=== PATIENT | male | born 1940 | race Caucasian/White ===

== ENCOUNTER 2017-10-31 13:36 | Outpatient (RCR) | payer MEDICARE, SELFPAY ==
[2017-10-31 13:51] LABS: Prothrombin Time Fingerstick 24.3 SEC (11.9-14.4)
== END 2017-10-31 14:00 | disposition home or self-care (01) ==
LOC: LAB 13:36
PROVIDERS: Family Provider Family Medicine; PCP Family Medicine; Visit Provider Internal Medicine Cardiovascular Disease
DX: I48.1 Persistent atrial fibrillation (principal); Z79.899 Other long term (current) drug therapy
CPT/HCPCS: 36416; 85610

== ENCOUNTER 2017-12-04 08:30 | Outpatient (RCR) | payer MEDICARE, SELFPAY ==
[2017-10-10 11:26] VITALS: BMI 27.8
[2017-10-10 11:37] VITALS: BP 132/78
[2017-12-04 08:46] LABS: Prothrombin Time Fingerstick 19.7 SEC (11.9-14.4)
== END 2017-12-04 15:00 | disposition home or self-care (01) ==
LOC: LAB 08:30
PROVIDERS: Family Provider Family Medicine; PCP Family Medicine; Visit Provider Internal Medicine Cardiovascular Disease
DX: I48.1 Persistent atrial fibrillation (principal); Z79.899 Other long term (current) drug therapy
CPT/HCPCS: 36416; 85610

== ENCOUNTER 2017-12-18 10:42 | Outpatient (RCR) | payer MEDICARE, SELFPAY ==
[2017-12-18 10:56] LABS: Prothrombin Time Fingerstick 30.3 SEC (11.9-14.4)
== END 2017-12-18 11:00 | disposition home or self-care (01) ==
LOC: LAB 10:42
PROVIDERS: Family Provider Family Medicine; PCP Family Medicine; Visit Provider Internal Medicine Cardiovascular Disease
DX: I48.1 Persistent atrial fibrillation (principal); Z79.899 Other long term (current) drug therapy
CPT/HCPCS: 36416; 85610

== ENCOUNTER 2018-01-22 13:23 | Outpatient (RCR) | payer MEDICARE, SELFPAY ==
[2018-01-22 13:36] LABS: Prothrombin Time Fingerstick 30.2 SEC (11.9-14.4)
== END 2018-01-22 14:00 | disposition home or self-care (01) ==
LOC: LAB 13:23
PROVIDERS: Family Provider Family Medicine; PCP Family Medicine; Visit Provider Internal Medicine Cardiovascular Disease
DX: I48.1 Persistent atrial fibrillation (principal); Z79.899 Other long term (current) drug therapy
CPT/HCPCS: 36416; 85610

== ENCOUNTER 2018-02-17 10:44 | Outpatient (RCR) | payer MEDICARE, SELFPAY ==
[2018-02-17 10:56] LABS: Prothrombin Time Fingerstick 30.1 SEC (11.9-14.4)
== END 2018-02-17 11:00 | disposition home or self-care (01) ==
LOC: LAB 10:44
PROVIDERS: Family Provider Family Medicine; PCP Family Medicine; Visit Provider Internal Medicine Cardiovascular Disease
DX: I48.1 Persistent atrial fibrillation (principal); Z79.899 Other long term (current) drug therapy
CPT/HCPCS: 36416; 85610

== ENCOUNTER 2018-03-24 10:32 | Outpatient (RCR) | payer MEDICARE, SELFPAY ==
[2018-03-24 10:46] LABS: Prothrombin Time Fingerstick 34.6 SEC (11.9-14.4)
== END 2018-03-24 11:00 | disposition home or self-care (01) ==
LOC: LAB 10:32
PROVIDERS: Family Provider Family Medicine; PCP Family Medicine; Visit Provider Internal Medicine Cardiovascular Disease
DX: I48.1 Persistent atrial fibrillation (principal); Z79.899 Other long term (current) drug therapy
CPT/HCPCS: 36416; 85610

== ENCOUNTER 2018-04-22 08:58 | Outpatient (RCR) | payer MEDICARE, SELFPAY ==
[2018-04-22 09:11] LABS: Prothrombin Time Fingerstick 27.2 SEC (11.9-14.4)
== END 2018-04-22 10:00 | disposition home or self-care (01) ==
LOC: LAB 08:58
PROVIDERS: Family Provider Family Medicine; PCP Family Medicine; Visit Provider Internal Medicine Cardiovascular Disease
DX: I48.1 Persistent atrial fibrillation (principal); Z79.899 Other long term (current) drug therapy
CPT/HCPCS: 36416; 85610

== ENCOUNTER 2018-05-26 13:22 | Outpatient (RCR) | payer MEDICARE, SELFPAY | END 2018-05-26 15:00 | disposition home or self-care (01) | LOC: LAB 13:22 | PROVIDERS: Family Provider Family Medicine; PCP Family Medicine; Visit Provider Internal Medicine Cardiovascular Disease | DX: I48.1 Persistent atrial fibrillation (principal); Z79.899 Other long term (current) drug therapy | CPT/HCPCS: 36416; 85610 ==

== ENCOUNTER 2018-06-24 11:43 | Outpatient (RCR) | payer MEDICARE, SELFPAY ==
[2018-06-24 11:55] LABS: Prothrombin Time Fingerstick 34.3 SEC (11.9-14.4)
== END 2018-06-24 13:00 | disposition home or self-care (01) ==
LOC: LAB 11:43
PROVIDERS: Family Provider Family Medicine; PCP Family Medicine; Visit Provider Internal Medicine Cardiovascular Disease
DX: I48.1 Persistent atrial fibrillation (principal); Z79.899 Other long term (current) drug therapy
CPT/HCPCS: 36416; 85610

== ENCOUNTER → 2018-07-16 12:23 | Outpatient (CLI) | payer MEDICARE, SELFPAY ==
--- NOTE | 2018-07-16 13:00 | MRI_ITS ---
STUDY: MRI BRAIN WITHOUT CONTRAST REASON FOR EXAM: Male, 78 years old. TIA and dizziness TECHNIQUE: Standardized multiplanar fat and water weighted pulse sequences were obtained. COMPARISON: None. FINDINGS: Mild atrophy and minor periventricular white matter ischemic changes without mass effect or restricted diffusion.. Normal bilateral basal ganglia. Normal thalami. There is no extra-axial fluid accumulation. Normal flow voids within the major intracranial circulation suggesting patency by spin echo criteria. Normal sella turcica, pituitary gland, infundibular stalk, optic chiasm and hypothalamus. Normal tectal plate and pineal gland. Normal midbrain, jacey and medulla. Normal cerebellum. Normal basal cisterns. Normal bilateral temporal bones. Normal bilateral internal auditory canals. There is asymmetric extra-axial fluid demonstrating signal of CSF in the left frontal region which may be due to small cystic hygroma or atypical arachnoid cyst. No demonstrated orbital abnormality, within the constraints of a routine brain study. Minor mucosal thickening of the ethmoid air cells.. Normal calvarium and skull base. Normal visualized soft tissue structures. Normal visualized upper cervical spine. MRI/Brain without Contrast IMPRESSION: Mild atrophy and periventricular white matter ischemic changes without evidence for acute infarct. Question small left frontal cystic hygroma or atypical arachnoid cyst. Electronically Signed: Ebenezer Tubbs MD at 18:51 EDT , Service support ,
--- NOTE | 2018-07-16 14:02 | CDU_ITS ---
Reason For Study: TIA Rt. Velocities/BP Lt. Velocities/BP Prox CCA 68.6/15.2 cm/sec. Prox CCA 101/18.9 cm/sec. Mid CCA 76.8/15.2 cm/sec. Mid CCA 95.1/24.4 cm/sec. Dist CCA 65.1/16.4 cm/sec. Dist CCA 75.6/16.4 cm/sec. Prox ICA 70.4/20.5 cm/sec. Prox ICA 51.5/13.7 cm/sec. Mid ICA 85/19.3 cm/sec. Mid ICA 53.4/20.8 cm/sec. Dist ICA 60.7/17.4 cm/sec. Dist ICA 40.2/10.3 cm/sec. Rt. ICA/CCA = 1.24. Lt. ICA/CCA = 0.71. Prox ECA 58.9/6.29 cm/sec. Prox ECA 67.4/6.45 cm/sec. Rt. Vert. 31/10.4 cm/sec. Lt. Vert. 46.3/18.8 cm/sec. Right Extracranial There is intimal thickening but no significant atherosclerotic plaque noted in the right common carotid artery. There is heterogeneous, irregular atherosclerotic plaque noted in the right internal carotid artery. There is no significant atherosclerotic plaque noted in the right external carotid artery. Antegrade flow is noted in the right vertebral artery. Left Extracranial There is no significant atherosclerotic plaque noted in the left common carotid artery. There is heterogeneous, irregular atherosclerotic plaque noted in the left internal carotid artery. There is homogeneous, irregular atherosclerotic plaque noted in the left external carotid artery. Antegrade flow is noted in the left vertebral artery. Procedure Carotid Duplex 25362. Exam performed in department. Interpretation Summary Mild (<50%) stenosis right extracranial internal carotid. Mild (<50%) stenosis left extracranial internal carotid. Flow within the vertebral arteries is antegrade bilaterally. Ordering Physician: Poli Baumann Referring Physician: Phoenix Howard M.D. Performed By: Modesto MARCIAL, Terri MONTOYA and Student
--- NOTE | 2018-07-16 14:03 | ECHOD_ITS ---
Reason For Study: TIA Procedure This was a 2D Doppler, Color Flow transthoracic echocardiogram. The study was technically difficult. Exam performed in department. Left Ventricle Normal LV size. Severe concentric left ventricular hypertrophy. Left ventricular systolic function is normal. The estimated ejection fraction is 55 %. Post operative septal motion. Unable to assess diastolic dysfunction. Right Ventricle Normal RV size. Normal systolic function. Atria The left atrium is mildly enlarged. Normal right atrium. No doppler evidence for ASD. Bubble contrast study negative for right to left interatrial shunt. Mitral Valve Stable appearing bioprosthetic mitral valve apparatus. MIld (1+) transvalvular insufficiency of the mitral valve. Tricuspid Valve Normal tricuspid valve. Trivial tricuspid valve insufficiency. Right ventricular systolic pressure estimated to be 30 mmHg. Aortic Valve Trisinus/trileaflet aortic valve. Mild focal aortic valve thickening. Mild (1+) aortic valve insufficiency. Pulmonic Valve The pulmonic valve is not well visualized. Trivial pulmonic valve insufficiency. Great Vessels Normal sized aortic root. Calcified aortic root. Pericardium/Pleural No pericardial effusion. Medication 22 gauge I.V. with prn adaptor inserted into right arm. Performed a rapid injection of agitated mix of 9 cc saline and 1cc air to assess for atrial septal defect. MMode/2D Measurements & Calculations LVIDd: 4.4 cm IVSd: 1.8 cm Ao root diam: 3.8 cm LVIDs: 3.0 cm LVPWd: 1.7 cm RVDd: 3.3 cm FS: 32.9 % LAV(MOD-bp): 90.6 ml LA A4 area: 23.0 cm2 LAV(MOD-bp) Indexed: 42.3 ml/m2 LAV(MOD-sp2): 78.8 ml LAV(MOD-sp4): 85.6 ml Doppler Measurements & Calculations MV E max man: 143.2 cm/sec MV V2 max: 151.6 cm/sec Ao V2 max: 85.1 cm/sec MV max P.3 mmHg Ao max P.9 mmHg MV V2 mean: 86.0 cm/sec MV mean P.5 mmHg MV V2 VTI: 27.8 cm AI max man: 301.2 cm/sec LV V1 max: 62.1 cm/sec PA V2 max: 115.5 cm/sec AI max P.7 mmHg LV V1 max P.5 mmHg AI dec slope: 137.9 cm/sec2 AI P1/2t: 639.7 msec TR max man: 257.6 cm/sec TR max P.6 mmHg Interpretation Summary The study was technically difficult. Left ventricular systolic function is normal. The estimated ejection fraction is 55 %. Severe concentric left ventricular hypertrophy. Post operative septal motion. The left atrium is mildly enlarged. Stable appearing bioprosthetic mitral valve apparatus. MIld (1+) transvalvular insufficiency of the mitral valve. Trivial tricuspid valve insufficiency. Mild focal aortic valve thickening. Mild (1+) aortic valve insufficiency. Trivial pulmonic valve insufficiency. Calcified aortic root. Right ventricular systolic pressure estimated to be 30 mmHg. Unable to assess diastolic dysfunction. Ordering Physician: Poli Baumann Referring Physician: Phoenix Howard Performed By: Elvia Chandler RDCS, RVT
== END ==
PROVIDERS: Family Provider Family Medicine; PCP Family Medicine; Referring Provider Psychiatry & Neurology Neurology; Visit Provider Psychiatry & Neurology Neurology
DX: Z86.73 Personal history of transient ischemic attack (TIA), and cerebral infarction without residual deficits (principal)
CPT/HCPCS: 70551; 93306; 93880; A4216

== ENCOUNTER 2018-07-28 09:08 | Outpatient (RCR) | payer MEDICARE, SELFPAY ==
[2018-07-28 09:20] LABS: Prothrombin Time Fingerstick 26.6 SEC (11.9-14.4)
== END 2018-07-28 10:00 | disposition home or self-care (01) ==
LOC: LAB 09:08
PROVIDERS: Family Provider Family Medicine; PCP Family Medicine; Referring Provider Internal Medicine Cardiovascular Disease; Visit Provider Internal Medicine Cardiovascular Disease
DX: I48.1 Persistent atrial fibrillation (principal); Z79.899 Other long term (current) drug therapy
CPT/HCPCS: 36416; 85610

== ENCOUNTER 2018-09-01 09:53 | Outpatient (RCR) | payer MEDICARE, SELFPAY ==
[2018-09-01 10:11] LABS: Prothrombin Time Fingerstick 32.1 SEC (11.9-14.4)
== END 2018-09-05 12:26 | disposition home or self-care (01) ==
LOC: LAB 09:53
PROVIDERS: Family Provider Family Medicine; PCP Family Medicine; Referring Provider Internal Medicine Cardiovascular Disease; Visit Provider Internal Medicine Cardiovascular Disease
DX: I48.1 Persistent atrial fibrillation (principal); Z79.899 Other long term (current) drug therapy
CPT/HCPCS: 36416; 85610

== ENCOUNTER 2018-10-03 08:47 | Outpatient (RCR) | payer MEDICARE, SELFPAY ==
[2018-10-03 09:05] LABS: Prothrombin Time Fingerstick 29.4 SEC (11.9-14.4)
== END 2018-10-03 09:00 | disposition home or self-care (01) ==
LOC: LAB 08:47
PROVIDERS: Family Provider Family Medicine; PCP Family Medicine; Referring Provider Internal Medicine Cardiovascular Disease; Visit Provider Internal Medicine Cardiovascular Disease
DX: I48.1 Persistent atrial fibrillation (principal); Z79.899 Other long term (current) drug therapy
CPT/HCPCS: 36416; 85610

== ENCOUNTER 2018-10-31 14:03 | Outpatient (RCR) | payer MEDICARE, SELFPAY ==
[2018-10-31 14:21] LABS: Prothrombin Time Fingerstick 28.9 SEC (11.9-14.4)
== END 2018-10-31 15:00 | disposition home or self-care (01) ==
LOC: LAB 14:03
PROVIDERS: Family Provider Family Medicine; PCP Family Medicine; Referring Provider Internal Medicine Cardiovascular Disease; Visit Provider Internal Medicine Cardiovascular Disease
DX: I48.1 Persistent atrial fibrillation (principal); Z79.899 Other long term (current) drug therapy
CPT/HCPCS: 36416; 85610

== ENCOUNTER 2018-11-27 15:38 | Outpatient (RCR) | payer MEDICARE, SELFPAY ==
[2018-11-13 15:06] VITALS: BMI 28.0
== END 2018-12-04 16:00 | disposition home or self-care (01) ==
LOC: LAB 15:38
PROVIDERS: Family Provider Family Medicine; PCP Family Medicine; Referring Provider Internal Medicine Cardiovascular Disease; Visit Provider Internal Medicine Cardiovascular Disease
DX: I48.1 Persistent atrial fibrillation (principal); Z79.899 Other long term (current) drug therapy
CPT/HCPCS: 36416; 85610

== ENCOUNTER 2018-12-30 13:46 | Outpatient (RCR) | payer MEDICARE, SELFPAY ==
[2018-11-13 15:06] VITALS: BMI 28.0
[2018-12-30 14:01] LABS: Prothrombin Time Fingerstick 37.5 SEC (11.9-14.4)
== END 2018-12-30 14:47 | disposition home or self-care (01) ==
LOC: LAB 13:46
PROVIDERS: Family Provider Family Medicine; PCP Family Medicine; Referring Provider Internal Medicine Cardiovascular Disease; Visit Provider Internal Medicine Cardiovascular Disease
DX: I48.1 Persistent atrial fibrillation (principal); Z79.899 Other long term (current) drug therapy
CPT/HCPCS: 36416; 85610

== ENCOUNTER 2019-01-28 12:44 | Outpatient (RCR) | payer MEDICARE, SELFPAY ==
[2018-11-13 15:06] VITALS: BMI 28.0
[2019-01-12 13:55] LABS: Prothrombin Time Fingerstick 31.3 SEC (11.9-14.4)
[2019-01-28 13:01] LABS: Prothrombin Time Fingerstick 30.6 SEC (11.9-14.4)
== END 2019-02-03 16:00 | disposition home or self-care (01) ==
LOC: LAB 12:44
PROVIDERS: Family Provider Family Medicine; PCP Family Medicine; Referring Provider Internal Medicine Cardiovascular Disease; Visit Provider Internal Medicine Cardiovascular Disease
DX: I48.1 Persistent atrial fibrillation (principal); Z79.899 Other long term (current) drug therapy
CPT/HCPCS: 36416; 85610

== ENCOUNTER 2019-03-03 10:34 | Outpatient (RCR) | payer MEDICARE, SELFPAY ==
[2018-11-13 15:06] VITALS: BMI 28.0
[2019-03-03 12:01] LABS: Prothrombin Time Fingerstick 33.1 SEC (11.9-14.4)
== END 2019-03-03 11:34 | disposition home or self-care (01) ==
LOC: LAB 10:34
PROVIDERS: Family Provider Family Medicine; PCP Family Medicine; Referring Provider Internal Medicine Cardiovascular Disease; Visit Provider Internal Medicine Cardiovascular Disease
DX: I48.1 Persistent atrial fibrillation (principal); Z79.899 Other long term (current) drug therapy
CPT/HCPCS: 36416; 85610

== ENCOUNTER 2019-04-01 12:35 | Outpatient (RCR) | payer MEDICARE, SELFPAY ==
[2018-11-13 15:06] VITALS: BMI 28.0
[2019-04-01 12:55] LABS: Prothrombin Time Fingerstick 26.9 SEC (11.9-14.4)
== END 2019-04-05 12:00 | disposition home or self-care (01) ==
LOC: LAB 12:35
PROVIDERS: Family Provider Family Medicine; PCP Family Medicine; Referring Provider Internal Medicine Cardiovascular Disease; Visit Provider Internal Medicine Cardiovascular Disease
DX: I48.1 Persistent atrial fibrillation (principal); Z79.899 Other long term (current) drug therapy
CPT/HCPCS: 36416; 85610

== ENCOUNTER 2019-04-29 11:36 | Outpatient (RCR) | payer MEDICARE, SELFPAY ==
[2018-11-13 15:06] VITALS: BMI 28.0
[2019-04-29 11:45] LABS: Prothrombin Time Fingerstick 26.7 SEC (11.9-14.4)
== END 2019-05-06 17:16 | disposition home or self-care (01) ==
LOC: LAB 11:36
PROVIDERS: Family Provider Family Medicine; PCP Family Medicine; Referring Provider Internal Medicine Cardiovascular Disease; Visit Provider Internal Medicine Cardiovascular Disease
DX: I48.1 Persistent atrial fibrillation (principal); Z79.899 Other long term (current) drug therapy
CPT/HCPCS: 36416; 85610

== ENCOUNTER 2019-06-03 10:27 | Outpatient (RCR) | payer MEDICARE, SELFPAY ==
[2018-11-13 15:06] VITALS: BMI 28.0
[2019-06-03 15:49] LABS: Prothrombin Time Fingerstick 25.3 SEC (11.9-14.4)
== END 2019-06-03 11:27 | disposition home or self-care (01) ==
LOC: LAB 10:27
PROVIDERS: Family Provider Family Medicine; PCP Family Medicine; Referring Provider Internal Medicine Cardiovascular Disease; Visit Provider Internal Medicine Cardiovascular Disease
DX: I48.1 Persistent atrial fibrillation (principal); Z79.01 Long term (current) use of anticoagulants
CPT/HCPCS: 36416; 85610

== ENCOUNTER 2019-07-01 11:17 | Outpatient (RCR) | payer MEDICARE, SELFPAY ==
[2019-06-03 11:18] VITALS: BMI 28.2
[2019-07-01 12:05] LABS: Prothrombin Time Fingerstick 28.1 SEC (11.9-14.4)
== END 2019-07-06 18:00 | disposition home or self-care (01) ==
LOC: LAB 11:17
PROVIDERS: Family Provider Family Medicine; PCP Family Medicine; Referring Provider Internal Medicine Cardiovascular Disease; Visit Provider Internal Medicine Cardiovascular Disease
DX: I48.1 Persistent atrial fibrillation (principal); Z79.01 Long term (current) use of anticoagulants
CPT/HCPCS: 36416; 85610

== ENCOUNTER 2019-07-30 08:14 | Outpatient (RCR) | payer MEDICARE, SELFPAY ==
[2019-06-03 11:18] VITALS: BMI 28.2
[2019-07-30 15:56] LABS: Prothrombin Time Fingerstick 32.2 SEC (11.9-14.4)
== END 2019-07-30 18:00 | disposition home or self-care (01) ==
LOC: LAB 08:14
PROVIDERS: Family Provider Family Medicine; PCP Family Medicine; Referring Provider Internal Medicine Cardiovascular Disease; Visit Provider Internal Medicine Cardiovascular Disease
DX: I48.91 Unspecified atrial fibrillation (principal); Z79.899 Other long term (current) drug therapy
CPT/HCPCS: 36416; 85610

== ENCOUNTER 2019-09-01 13:33 | Outpatient (RCR) | payer MEDICARE, SELFPAY ==
[2019-06-03 11:18] VITALS: BMI 28.2
[2019-09-01 13:51] LABS: Prothrombin Time Fingerstick 27.8 SEC (11.9-14.4)
== END 2019-09-01 18:00 | disposition home or self-care (01) ==
LOC: LAB 13:33
PROVIDERS: Family Provider Family Medicine; PCP Family Medicine; Referring Provider Internal Medicine Cardiovascular Disease; Visit Provider Internal Medicine Cardiovascular Disease
DX: I48.11 Longstanding persistent atrial fibrillation (principal); Z79.899 Other long term (current) drug therapy
CPT/HCPCS: 36416; 85610

== ENCOUNTER 2019-10-02 11:47 | Outpatient (RCR) | payer MEDICARE, SELFPAY ==
[2019-06-03 11:18] VITALS: BMI 28.2
[2019-10-02 13:16] LABS: Prothrombin Time Fingerstick 34.9 SEC (11.9-14.4)
== END 2019-10-02 18:00 | disposition home or self-care (01) ==
LOC: LAB 11:47
PROVIDERS: Family Provider Family Medicine; PCP Family Medicine; Referring Provider Internal Medicine Cardiovascular Disease; Visit Provider Internal Medicine Cardiovascular Disease
DX: I48.11 Longstanding persistent atrial fibrillation (principal); Z79.899 Other long term (current) drug therapy
CPT/HCPCS: 36416; 85610

== ENCOUNTER 2019-10-27 12:35 | Outpatient (RCR) | payer MEDICARE, SELFPAY ==
[2019-06-03 11:18] VITALS: BMI 28.2
[2019-10-28 17:10] LABS: Prothrombin Time Fingerstick 26.8 SEC (11.9-14.4)
[2019-10-29 10:15] LABS: Prothrombin Time Fingerstick 26.8 SEC (11.9-14.4)
== END 2019-10-27 18:00 | disposition home or self-care (01) ==
LOC: LAB 12:35
PROVIDERS: Family Provider Family Medicine; PCP Family Medicine; Referring Provider Internal Medicine Cardiovascular Disease; Visit Provider Internal Medicine Cardiovascular Disease
DX: I48.11 Longstanding persistent atrial fibrillation (principal); Z79.899 Other long term (current) drug therapy
CPT/HCPCS: 36416; 85610

== ENCOUNTER 2019-11-25 12:23 | Outpatient (RCR) | payer MEDICARE, SELFPAY ==
[2019-06-03 11:18] VITALS: BMI 28.2
[2019-11-25 12:31] LABS: Prothrombin Time Fingerstick 26.2 SEC (11.9-14.4)
== END 2019-11-25 18:00 | disposition home or self-care (01) ==
LOC: LAB 12:23
PROVIDERS: Family Provider Family Medicine; PCP Family Medicine; Referring Provider Internal Medicine Cardiovascular Disease; Visit Provider Internal Medicine Cardiovascular Disease
DX: I48.11 Longstanding persistent atrial fibrillation (principal); Z79.01 Long term (current) use of anticoagulants
CPT/HCPCS: 36416; 85610

== ENCOUNTER → 2020-03-31 13:49 | Outpatient (CLI) | payer MEDICARE, SELFPAY ==
[2019-11-25 13:05] VITALS: BMI 28.2
--- NOTE | 2020-03-31 13:50 | ECHOCS_ITS ---
Reason For Study: DYSPNEA Procedure This was a 2D Doppler, Color Flow transthoracic echocardiogram. The study was technically difficult. Contrast injection was performed. Exam performed in department. Left Ventricle Normal LV size. Severe concentric left ventricular hypertrophy. Left ventricular systolic function is normal. The estimated ejection fraction is 65 %. Post operative septal motion. Unable to assess diastolic dysfunction. No regional wall motion abnormalities noted. Right Ventricle Normal RV size. Normal systolic function. Atria The left atrium is moderately enlarged. The right atrium is mildly enlarged. No doppler evidence for ASD. Mitral Valve An annuloplasty ring is noted in the mitral position. MIld (1+) transvalvular insufficiency of the mitral valve. Tricuspid Valve Normal tricuspid valve. Mild tricuspid valve insufficiency. Right ventricular systolic pressure estimated to be 32 mmHg. Aortic Valve Trisinus/trileaflet aortic valve. Mild focal aortic valve calcification. Mild (1+) aortic valve insufficiency. Pulmonic Valve The pulmonic valve is not well visualized. Great Vessels The ascending aorta is moderately dilated. Pericardium/Pleural No pericardial effusion. Medication 22 gauge I.V. with prn adaptor inserted into left arm. Diluted definity 3.0ml given slow IV push to enhance endocardial definition. MMode/2D Measurements & Calculations LVIDd: 5.4 cm IVSd: 1.3 cm Ao root diam: 4.7 cm LVIDs: 3.7 cm LVPWd: 1.8 cm RVDd: 4.4 cm FS: 33.0 % LAV(MOD-bp): 126.6 ml EDV(MOD-sp4): 158.3 ml EDV(MOD-sp2): 137.6 ml LAV(MOD-bp) Indexed: 59.3 ml/m2 ESV(MOD-sp4): 66.6 ml EF(MOD-sp2): 57.2 % LAV(MOD-sp2): 128.9 ml EF(MOD-sp4): 57.9 % LAV(MOD-sp4): 115.1 ml SV(MOD-sp4): 91.7 ml SV(MOD-sp2): 78.8 ml LA A4 area: 31.8 cm2 LA dimension(2D): 5.5 cm RA A4 area: 22.2 cm2 Time Measurements MV dec time: 0.43 sec Doppler Measurements & Calculations MV E max man: 150.1 cm/sec MV V2 max: 171.0 cm/sec Ao V2 max: 91.5 cm/sec MV max P.7 mmHg Ao max P.4 mmHg MV V2 mean: 57.2 cm/sec Ao V2 mean: 64.9 cm/sec MV mean P.1 mmHg Ao mean P.9 mmHg MV V2 VTI: 43.5 cm Ao V2 VTI: 16.9 cm AI max man: 398.3 cm/sec LV V1 max: 96.2 cm/sec TR max man: 267.1 cm/sec AI max P.7 mmHg LV V1 max P.8 mmHg TR max P.5 mmHg LV V1 mean P.1 mmHg AI dec slope: 236.0 cm/sec2 LV V1 mean: 67.5 cm/sec AI P1/2t: 494.3 msec LV V1 VTI: 20.6 cm Interpretation Summary The study was technically difficult. Contrast injection was performed. Left ventricular systolic function is normal. The estimated ejection fraction is 65 %. Severe concentric left ventricular hypertrophy. Post operative septal motion. The left atrium is moderately enlarged. The right atrium is mildly enlarged. An annuloplasty ring is noted in the mitral position. MIld (1+) transvalvular insufficiency of the mitral valve. Mild tricuspid valve insufficiency. Mild focal aortic valve calcification. Mild (1+) aortic valve insufficiency. The ascending aorta is moderately dilated. (4.7 cm) Right ventricular systolic pressure estimated to be 32 mmHg. Unable to assess diastolic dysfunction. Ordering Physician: Venkatesh Thompson Referring Physician: SAIMA AKINS Performed By: Terri Salvador, RDCS, RVT
== END ==
PROVIDERS: PCP Family Medicine; Referring Provider Nurse Practitioner Family; Visit Provider Nurse Practitioner Family
DX: I48.11 Longstanding persistent atrial fibrillation (principal); Z95.3 Presence of xenogenic heart valve; I10 Essential (primary) hypertension; E78.5 Hyperlipidemia, unspecified; I25.10 Atherosclerotic heart disease of native coronary artery without angina pectoris; Z95.1 Presence of aortocoronary bypass graft
CPT/HCPCS: 93306; Q9957; A4216; C8929

== ENCOUNTER → 2020-04-21 13:01 | Outpatient (CLI) | payer MEDICARE, SELFPAY ==
[2019-11-25 13:05] VITALS: BMI 28.2
--- NOTE | 2020-04-21 13:02 | CT_ITS ---
STUDY: CTA CHEST REASON FOR EXAM: Male, 80 years old. ABNORMAL ECHO, R/O DILATED AORTIC ROOT RADIATION DOSAGE (If Supplied By Facility): CTDIvol = ( 16.11 ) mGy, DLP = ( 650.35 ) mGycm TECHNIQUE: The examination was performed with the intravenous administration of 100ML ISOVUE 370. Post-processing of the angiographic images was performed, with multiplanar reformation and 3D reconstruction. Individualized dose optimization techniques were used for this CT. COMPARISON: Comparison is made with prior study dated April 11, 2015. FINDINGS: Normal enhancement of the main pulmonary artery and right and left pulmonary arteries. Normal enhancement of the bilateral peripheral pulmonary arteries. There is no demonstrated pulmonary embolism. There is aneurysmal dilatation of the ascending aorta. The transverse diameter of the ascending aorta measures 43.5 mm''s. Atherosclerotic plaques descending thoracic aorta. There is no demonstrated aortic dissection. Dilated left atrium. Normal mediastinum. Normal hilar regions. Normal visualized trachea and bronchi. The lungs are well expanded. Mild degree of increased markings at the lung bases suggestive of a mild scarring. Normal pleura. Normal chest wall structures. There are mild degenerative changes of thoracic spine. Mild thickening of the gallbladder wall. 3.2 cm left renal cyst. CT/CTA Chest W/WO Contrast IMPRESSION: Dilatation of the ascending thoracic aorta with a transverse dimension of 43.5 mm. Electronically Signed: Duarte Saini, at 15:00 EDT , Service support ,
[2020-04-21 13:16] LABS: CREATININE FINGERSTICK 0.6 mg/dL (0.70-1.30)
== END ==
PROVIDERS: PCP Family Medicine; Referring Provider Nurse Practitioner Family; Visit Provider Nurse Practitioner Family
DX: I71.2 Thoracic aortic aneurysm, without rupture (principal)
CPT/HCPCS: 71275; Q9967

== ENCOUNTER 2020-06-23 09:49 | Outpatient (RCR) | payer MEDICARE, SELFPAY ==
[2019-11-25 13:05] VITALS: BMI 28.2
[2020-06-23 09:56] LABS: Prothrombin Time Fingerstick 24.2 SEC (11.9-14.4)
== END 2020-06-23 18:00 | disposition home or self-care (01) ==
LOC: LAB 09:49
PROVIDERS: Family Provider Family Medicine; PCP Family Medicine; Referring Provider Internal Medicine Cardiovascular Disease; Visit Provider Internal Medicine Cardiovascular Disease
DX: I48.11 Longstanding persistent atrial fibrillation (principal); Z79.01 Long term (current) use of anticoagulants
CPT/HCPCS: 36416; 85610

== ENCOUNTER 2020-07-14 12:28 | Outpatient (RCR) | payer MEDICARE, SELFPAY ==
[2019-11-25 13:05] VITALS: BMI 28.2
[2020-07-14 12:46] LABS: Prothrombin Time Fingerstick 27.3 SEC (11.9-14.4)
== END 2020-07-14 18:00 | disposition home or self-care (01) ==
LOC: LAB 12:28
PROVIDERS: Family Provider Family Medicine; PCP Family Medicine; Referring Provider Internal Medicine Cardiovascular Disease; Visit Provider Internal Medicine Cardiovascular Disease
DX: I48.11 Longstanding persistent atrial fibrillation (principal); Z79.01 Long term (current) use of anticoagulants
CPT/HCPCS: 36416; 85610

== ENCOUNTER 2020-09-05 13:10 | Outpatient (RCR) | payer MEDICARE, SELFPAY ==
[2019-11-25 13:05] VITALS: BMI 28.2
[2020-09-05 13:21] LABS: Prothrombin Time Fingerstick 29.2 SEC (11.9-14.4)
== END 2020-09-05 18:00 | disposition home or self-care (01) ==
LOC: LAB 13:10
PROVIDERS: Family Provider Family Medicine; PCP Family Medicine; Referring Provider Internal Medicine Cardiovascular Disease; Visit Provider Internal Medicine Cardiovascular Disease
DX: I48.11 Longstanding persistent atrial fibrillation (principal); Z79.01 Long term (current) use of anticoagulants
CPT/HCPCS: 36416; 85610

== ENCOUNTER 2020-10-12 12:06 | Outpatient (RCR) | payer MEDICARE, SELFPAY ==
[2020-09-05 13:49] VITALS: BMI 27.5
[2020-10-13 07:56] LABS: Prothrombin Time Fingerstick 33.4 SEC (11.9-14.4)
== END 2020-10-12 18:00 | disposition home or self-care (01) ==
LOC: LAB 12:06
PROVIDERS: Family Provider Family Medicine; PCP Family Medicine; Referring Provider Internal Medicine Cardiovascular Disease; Visit Provider Internal Medicine Cardiovascular Disease
DX: I48.11 Longstanding persistent atrial fibrillation (principal); Z79.01 Long term (current) use of anticoagulants
CPT/HCPCS: 36416; 85610

== ENCOUNTER 2020-12-01 09:56 | Outpatient (RCR) | payer MEDICARE, SELFPAY ==
[2020-09-05 13:49] VITALS: BMI 27.5
[2020-12-01 10:11] LABS: Prothrombin Time Fingerstick 29.2 SEC (11.9-14.4)
== END 2020-12-01 18:00 | disposition home or self-care (01) ==
LOC: LAB 09:56
PROVIDERS: Family Provider Family Medicine; PCP Family Medicine; Referring Provider Internal Medicine Cardiovascular Disease; Visit Provider Internal Medicine Cardiovascular Disease
DX: I48.11 Longstanding persistent atrial fibrillation (principal); Z79.01 Long term (current) use of anticoagulants
CPT/HCPCS: 36416; 85610

== ENCOUNTER 2020-12-30 09:33 | Outpatient (RCR) | payer MEDICARE, SELFPAY ==
[2020-09-05 13:49] VITALS: BMI 27.5
[2020-12-30 09:50] LABS: INR Fingerstick 2.8; Prothrombin Time Fingerstick 31.3 SEC (11.9-14.4)
== END 2020-12-30 18:00 | disposition home or self-care (01) ==
LOC: LAB 09:33
PROVIDERS: Family Provider Family Medicine; PCP Family Medicine; Referring Provider Internal Medicine Cardiovascular Disease; Visit Provider Internal Medicine Cardiovascular Disease
DX: I48.11 Longstanding persistent atrial fibrillation (principal); Z79.01 Long term (current) use of anticoagulants
CPT/HCPCS: 36416; 85610

== ENCOUNTER 2021-01-26 10:14 | Outpatient (RCR) | payer MEDICARE, SELFPAY ==
[2020-09-05 13:49] VITALS: BMI 27.5
[2021-01-26 10:26] LABS: INR Fingerstick 2.7; Prothrombin Time Fingerstick 30.1 SEC (11.9-14.4)
== END 2021-01-26 18:00 | disposition home or self-care (01) ==
LOC: LAB 10:14
PROVIDERS: Family Provider Family Medicine; PCP Family Medicine; Referring Provider Internal Medicine Cardiovascular Disease; Visit Provider Internal Medicine Cardiovascular Disease
DX: I48.11 Longstanding persistent atrial fibrillation (principal); Z79.01 Long term (current) use of anticoagulants
CPT/HCPCS: 36416; 85610

== ENCOUNTER 2021-03-02 09:55 | Outpatient (RCR) | payer MEDICARE, SELFPAY ==
[2020-09-05 13:49] VITALS: BMI 27.5
[2021-03-02 10:06] LABS: INR Fingerstick 2.6; Prothrombin Time Fingerstick 28.9 SEC (11.9-14.4)
== END 2021-03-02 18:00 | disposition home or self-care (01) ==
LOC: LAB 09:55
PROVIDERS: Family Provider Family Medicine; PCP Family Medicine; Referring Provider Internal Medicine Cardiovascular Disease; Visit Provider Internal Medicine Cardiovascular Disease
DX: I48.11 Longstanding persistent atrial fibrillation (principal); Z79.01 Long term (current) use of anticoagulants
CPT/HCPCS: 36416; 85610

== ENCOUNTER 2021-03-09 13:44 | Outpatient (RCR) | payer MEDICARE, SELFPAY ==
[2020-09-05 13:49] VITALS: BMI 27.5
== END 2021-04-28 23:59 ==
LOC: IMMUN 13:44
PROVIDERS: PCP Family Medicine; Visit Provider Family Medicine
DX: Z23 Encounter for immunization (principal)
CPT/HCPCS: 0001A; 91300

== ENCOUNTER → 2021-04-14 12:44 | Outpatient (CLI) | payer MEDICARE, SELFPAY ==
[2020-09-05 13:49] VITALS: BMI 27.5
--- NOTE | 2021-04-14 13:16 | ECHOD_ITS ---
Reason For Study: Thoracic Aortic Dissection Procedure This was a 2D Doppler, Color Flow transthoracic echocardiogram. The exam was of adequate technical quality. Exam performed in department. Left Ventricle Normal LV size. Severe concentric left ventricular hypertrophy. Left ventricular systolic function is normal. The estimated ejection fraction is 60 %. Post operative septal motion. Unable to assess diastolic dysfunction. No regional wall motion abnormalities noted. Right Ventricle Normal RV size. Normal systolic function. Atria The left atrium is moderately enlarged. The right atrium is mildly enlarged. No doppler evidence for ASD. Mitral Valve Stable appearing bioprosthetic mitral valve apparatus. Tricuspid Valve Normal tricuspid valve. Mild tricuspid valve insufficiency. Right ventricular systolic pressure estimated to be 23 mmHg. Aortic Valve Trisinus/trileaflet aortic valve. Mild focal aortic valve calcification. Mild (1+) aortic valve insufficiency. Pulmonic Valve The pulmonic valve is not well visualized. Great Vessels Mildly dilated aortic root. Pericardium/Pleural No pericardial effusion. MMode/2D Measurements & Calculations LVIDd: 5.0 cm IVSd: 1.7 cm Ao root diam: 4.4 cm LVIDs: 3.0 cm LVPWd: 1.4 cm RVDd: 5.9 cm FS: 40.9 % LAV(MOD-bp): 91.2 ml LVAd ap4: 28.4 cm2 SV(MOD-sp4): 58.9 ml LAV(MOD-bp) Indexed: 43.0 ml/m2 LVLd ap4: 7.0 cm LAV(MOD-sp2): 85.0 ml EDV(MOD-sp4): 93.8 ml LAV(MOD-sp4): 87.4 ml EDV(sp4-el): 97.6 ml LVAs ap4: 16.5 cm2 LVLs ap4: 6.4 cm ESV(MOD-sp4): 34.9 ml ESV(sp4-el): 36.0 ml EF(MOD-sp4): 62.8 % EF(sp4-el): 63.1 % SV(sp4-el): 61.6 ml LA A4 area: 29.1 cm2 LA dimension(2D): 4.5 cm RA A4 area: 27.7 cm2 Doppler Measurements & Calculations MV E max man: 154.1 cm/sec MV V2 max: 168.9 cm/sec Ao V2 max: 112.2 cm/sec MV max P.4 mmHg Ao max P.0 mmHg MV V2 mean: 88.3 cm/sec Ao V2 mean: 76.5 cm/sec MV mean P.8 mmHg Ao mean P.6 mmHg MV V2 VTI: 43.4 cm Ao V2 VTI: 22.2 cm AI max man: 396.6 cm/sec LV V1 max: 88.2 cm/sec PA V2 max: 119.3 cm/sec AI max P.0 mmHg LV V1 max P.2 mmHg AI dec slope: 149.2 cm/sec2 AI P1/2t: 778.6 msec TR max man: 224.6 cm/sec TR max P.2 mmHg ECHO/Echo Complete Interpretation Summary Left ventricular systolic function is normal. The estimated ejection fraction is 60 %. Post operative septal motion. Severe concentric left ventricular hypertrophy. Stable appearing bioprosthetic mitral valve apparatus. Mild tricuspid valve insufficiency. Mild focal aortic valve calcification. Mild (1+) aortic valve insufficiency. Mildly dilated aortic root. Right ventricular systolic pressure estimated to be 23 mmHg. Unable to assess diastolic dysfunction. Ordering Physician: Denzel Alexander Referring Physician: Phoenix Howard Performed By: Zainab Thompson, ANIKET, RVT
== END ==
PROVIDERS: PCP Family Medicine; Referring Provider Internal Medicine Cardiovascular Disease; Visit Provider Internal Medicine Cardiovascular Disease
DX: I25.10 Atherosclerotic heart disease of native coronary artery without angina pectoris (principal); Z95.1 Presence of aortocoronary bypass graft; Z95.3 Presence of xenogenic heart valve; E78.5 Hyperlipidemia, unspecified; I10 Essential (primary) hypertension; I48.11 Longstanding persistent atrial fibrillation; I77.810 Thoracic aortic ectasia
CPT/HCPCS: 93306

== ENCOUNTER 2021-04-20 13:54 | Outpatient (RCR) | payer MEDICARE, SELFPAY ==
[2020-09-05 13:49] VITALS: BMI 27.5
[2021-04-21 06:26] LABS: INR Fingerstick 3.2; Prothrombin Time Fingerstick 35.5 SEC (11.9-14.4)
== END 2021-04-20 18:00 | disposition home or self-care (01) ==
LOC: LAB 13:54
PROVIDERS: Family Provider Family Medicine; PCP Family Medicine; Referring Provider Internal Medicine Cardiovascular Disease; Visit Provider Internal Medicine Cardiovascular Disease
DX: I48.11 Longstanding persistent atrial fibrillation (principal); Z79.01 Long term (current) use of anticoagulants
CPT/HCPCS: 36416; 85610

== ENCOUNTER 2021-06-01 10:59 | Outpatient (RCR) | payer MEDICARE, SELFPAY ==
[2021-04-20 14:38] VITALS: BMI 27.2
[2021-06-01 11:10] LABS: INR Fingerstick 2.1
== END 2021-06-01 18:00 | disposition home or self-care (01) ==
LOC: LAB 10:59
PROVIDERS: Family Provider Family Medicine; PCP Family Medicine; Referring Provider Internal Medicine Cardiovascular Disease; Visit Provider Internal Medicine Cardiovascular Disease
DX: I48.11 Longstanding persistent atrial fibrillation (principal); Z79.01 Long term (current) use of anticoagulants
CPT/HCPCS: 36416; 85610

== ENCOUNTER → 2021-06-06 07:28 | Outpatient (CLI) | payer MEDICARE, SELFPAY ==
[2021-06-06 08:13] LABS: Hematocrit 46.7 % (40-54); Hemoglobin 14.5 g/dL (13.0-16.5); Mean Corpuscular Hgb 32.2 pg (27.0-32.0); Mean Corpuscular Volume 103.8 fL (80-94); Mean Platelet Vol. 11.5 fl (6.2-12.0); Platelet Count 130 K/mm3 (150-450); RBC Distribution Width CV 12.3 % (11.6-14.6); RBC Distribution Width SD 47.5 fl (35.1-43.9); White Blood Count 5.6 K/mm3 (4.4-11.0)
[2021-06-06 08:38] LABS: ALB/GLOB Ratio 1.1 RATIO (0.9-2.4); AST(SGOT) 25 U/L (15-37); Alanine Aminotransfer ALT/SGPT 31 U/L (16-61); Albumin, Serum 3.6 g/dL (3.2-5.0); Alkaline Phosphatase 73 U/L (45-117); Anion Gap 2 (5-15); BUN 19 mg/dL (7-18); BUN/Creat Ratio 17.4 RATIO (10-20); Bilirubin, Direct 0.18 mg/dL (0.00-0.30); Calcium,Total 8.5 mg/dL (8.5-10.1); Chloride 107 mmol/L (98-107); Cholesterol 179 mg/dL (200); Creatinine, Serum 1.09 mg/dL (0.70-1.30); EST Glomerular Filtration Rate 69 mL/min (>60); Est Glom Filt Rate - Afr Amer 83 mL/min (>60); Globulin 3.2 g/dL (2.2-4.2); Glucose 112 mg/dL (74-106); High Density Lipoprotein 41 mg/dL; Potassium 4.3 mmol/L (3.5-5.1); Protein, Total 6.8 g/dL (6.4-8.2); Sodium Level 141 mmol/L (136-145); Triglycerides 104 mg/dL; Very Low Density Lipoprotein 21 mg/dL (5-40)
== END ==
PROVIDERS: Internal Medicine Cardiovascular Disease; PCP Family Medicine; Referring Provider Family Medicine; Visit Provider Family Medicine
DX: I10 Essential (primary) hypertension (principal); E78.00 Pure hypercholesterolemia, unspecified; E78.5 Hyperlipidemia, unspecified
CPT/HCPCS: 36415; 80053; 80061; 82248; 85027

== ENCOUNTER 2021-06-15 06:43 | Inpatient (IN) | payer MEDICARE, SELFPAY ==
[2021-06-15] VITALS (35 sets, daily range): BP systolic 100–144; BP diastolic 58–93; PULSE 69–89; RESP 17–22; TEMP 36.3–36.9; O2SAT 94–99; BMI 25.8; BMI 27.1
--- NOTE | 2021-06-15 07:19 | EKG12_ITS ---
Test Reason : Blood Pressure : / mmHG Vent. Rate : 086 BPM Atrial Rate : 104 BPM P-R Int : 000 ms QRS Dur : 090 ms QT Int : 404 ms P-R-T Axes : 000 055 073 degrees QTc Int : 483 ms Atrial fibrillation Nonspecific ST and T wave abnormality Prolonged QT Abnormal ECG Confirmed by TESS PANTOJA, REBECA ([id number]), editor sound ENID ALFORD ([id number]) on 06/19/2021 1:00:55 PM Referred By: JOY Confirmed By:REBECA PULIDO MD
--- NOTE | 2021-06-15 07:19 | RAD_ITS ---
STUDY: X-RAY CHEST REASON FOR EXAM: Male, 81 years old. chest pain TECHNIQUE: AP COMPARISON: 03/31/2025 FINDINGS: EKG leads project over the chest. Mild reticular densities in the lung bases, likely atelectasis. No airspace consolidation. There are scattered calcified pleural plaques. There is moderate cardiac enlargement. Sternal wires and prosthetic mitral valve. Normal visualized pulmonary arteries. There is atherosclerotic calcification of the aortic arch with tortuosity. No acute bony process. There is no demonstrated abnormality of the visualized soft tissue structures of the upper abdomen. RAD/Chest 1 View (Portable) IMPRESSION: 1. Bibasilar atelectasis. No airspace consolidation or pleural effusion. Electronically Signed: Alf Manley MD (Brooks) at 8:01 EDT , Service support ,
--- NOTE | 2021-06-15 07:21 | ED.VIS.CHEST ---
HPI History of Present Illness Chief Complaint: Chest Pain Narrative Narrative: Patient is an 81-year-old male with past medical history of chronic atrial fibrillation coronary artery disease requiring bypass as well as mitral valve repair. He states he was lying in bed this morning around 5:50 AM when he had midsternal chest discomfort that radiated to his bilateral arm caused nausea and diaphoresis. He states symptoms lasted for approximately 10 to 15 minutes and then began resolving. He states he has just mild chest discomfort at this time which he rates at a 2 out of 10. However with his known coronary artery disease and symptoms or was concerned this could be cardiac in nature and therefore he called EMS to bring him in for evaluation. Patient states EMS did give him 4 baby aspirin during transport [facility] Medical History (Updated 06/15/21 @ 10:[address] 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 Pulmonary embolism Home Medications metoprolol tartrate 50 mg tablet 50 mg PO BID tab 10/09/17 [History Last Taken Unknown] food supplemt, lactose-reduced 0.04 gram-1 kcal/mL oral liquid 1 ea PO QDAY ml 04/22/18 [History Last Taken Unknown] warfarin 5 mg PO SUMOFRSA 06/15/21 [History Last Taken Unknown] warfarin 6 mg PO TUWETH 06/15/21 [History Last Taken Unknown] Allergy/AdvReac Type Severity Reaction Status Date / Time atorvastatin calcium Allergy Unknown Verified 06/15/21 06:48 [From Lipitor] ezetimibe [From Zetia] Allergy Unknown Verified 06/15/21 06:48 quinapril Allergy Unknown Verified 06/15/21 06:48 rosuvastatin calcium Allergy Unknown Verified 06/15/21 06:48 [From Crestor] Family History Mother CAD (coronary artery disease) Diabetes Brother CAD (coronary artery disease) Sister CAD (coronary artery disease) Sister CHF (congestive heart failure) Surgical History Aortocoronary bypass status (~05/2015) History of hernia repair History of maze procedure (~05/2015) History of mitral valve replacement with bioprosthetic valve (~05/2015) Social History Smoking Status: Never smoker alcohol intake: never substance use type: does not use caffeine: No ROS ROS ED Constitutional Constitutional ED: Reports sweats; Denies chills or fever(s) ENT ENT ED: Denies sore throat Cardiovascular Cardiovascular: Reports chest pain; Denies racing heartbeat Respiratory/Chest Respiratory/Chest: Denies cough or dyspnea Gastrointestinal Gastrointestinal: Reports nausea; Denies abdominal pain, diarrhea or vomiting Genitourinary Genitourinary ED: Denies dysuria Musculoskeletal Musculoskeletal: Denies myalgias Integumentary Denies rash Neurologic Neurologic: Denies headache(s) Hematologic/Lymphatic Hematologic/Lymphatic: Reports easy bleeding and easy bruising EXAM Physical Exam Const Vital Signs: 06/15/21 06:44 06/15/21 06:48 06/15/21 07:30 Temperature 97.7 F L Temperature Source Oral Pulse Rate 88 Respiratory Rate 18 Respiratory Effort Normal Respiratory Pattern Normal Blood Pressure Blood Pressure Mean Blood Pressure Source Blood Pressure Position Blood Pressure Location Pulse Ox 95 95 Oxygen Delivery Method Room Air Room Air 06/15/21 08:08 06/15/21 08:15 06/15/21 09:28 Temperature Temperature Source Pulse Rate 83 82 84 Respiratory Rate Respiratory Effort Respiratory Pattern Blood Pressure 123/80 H 108/74 128/89 H Blood Pressure Mean Blood Pressure Source Blood Pressure Position Blood Pressure Location Pulse Ox Oxygen Delivery Method 06/15/21 09:29 06/15/21 09:48 Temperature Temperature Source Pulse Rate 89 76 Respiratory Rate 18 Respiratory Effort Respiratory Pattern Blood Pressure 128/89 H 121/87 H Blood Pressure Mean 102 98 Blood Pressure Source Monitor Blood Pressure Position Semi-Fowlers Blood Pressure Location Right Arm Pulse Ox 97 Oxygen Delivery Method Room Air Positive well nourished and well developed General Appearance ED: well developed HEENT normocephalic and atraumatic Eyes PERRL and EOMs intact bilaterally Neck supple Chest Wall palpation of chest normal Chest: Negative for tenderness Resp normal respiratory effort and clear to auscultation bilaterally Cardio Rate: other Other Details: Irregularly irregular rhythm with regular rate consistent with history of atrial fibrillation GI normal to inspection, nondistended, normoactive bowel sounds, non-tender and non-distended GI Narrative: No voluntary guarding or rigidity no pulsatile mass Auscultation: normoactive bowel sounds Palpation: soft and other Extremity Extremity Narrative: Trace to +1 pitting edema to the bilateral lower extremity Neuro oriented x3 and CN's II-XII intact bilaterally Sensorium / Orientation: alert Psych mental status grossly normal Skin no rashes or lesions noted Heart Score History: Highly Suspicious ECG: Nonspecific Repolarization Age: >/= 65 years Risk Factors: >/= 3 Risk Factors or History of CAD Troponin: >/=3 x Normal Limit Score: 9 MDM MDM MDM Narrative Medical decision making narrative: Patient presented to the ER with spontaneous improvement of his pain after aspirin. He was in atrial fibrillation but this is chronic for him and he was rate controlled. He does have multiple risk factors for coronary artery disease and his history is concerning for this. The patient's first EKG was A. fib with a regular rate and initial troponin was normal at 21. The patient had 1 bout of less than 30 seconds where he had A. fib with RVR up to 160 bpm. The second troponin was elevated at 369. With this I did notice ST segment depression on the vehicle monitor technician. Patient also had reported increased pain at this time. The patient was started on a nitro drip secondary to this as well as given morphine and Zofran. I discussed the case with cardiology and they agree he needs to be admitted at this time with a possible heart cath later today. However as he is on Coumadin with an elevated INR of 2.2 they do not recommend any type of heparin be started at this time Lab Data Labs: Laboratory Results - last 24 hr 06/15/21 06/15/21 06/15/21 06:32 06:32 07:27 WBC 7.5 RBC 4.81 Hgb 15.5 Hct 49.9 MCV 103.7 H MCH 32.2 H MCHC 31.1 L RDW Std Deviation 48.8 H RDW Coeff of Parminder 12.6 Plt Count 144 L MPV 11.8 Immature Gran % (Auto) 0.300 Neut % (Auto) 57.5 Lymph % (Auto) 31.7 Borden % (Auto) 8.8 Eos % (Auto) 1.3 Baso % (Auto) 0.4 Absolute Neuts (auto) 4.3 Absolute Lymphs (auto) 2.39 Nucleated RBC % 0 PT 23.3 H INR 2.2 APTT 36.9 H Sodium 143 Potassium 4.5 Chloride 109 H Carbon Dioxide 32.0 Anion Gap 2 L BUN 23 H Creatinine 1.05 Estim Creat Clear Calc 59.53 Est GFR (MDRD) Af Amer 87 Est GFR (MDRD) Non-Af 72 BUN/Creatinine Ratio 21.9 H Glucose 152 H Calcium 9.2 Magnesium 2.6 Troponin I High Sens 21 TSH 2.74 06/15/21 08:35 WBC RBC Hgb Hct MCV MCH MCHC RDW Std Deviation RDW Coeff of Parminder Plt Count MPV Immature Gran % (Auto) Neut % (Auto) Lymph % (Auto) Borden % (Auto) Eos % (Auto) Baso % (Auto) Absolute Neuts (auto) Absolute Lymphs (auto) Nucleated RBC % PT INR APTT Sodium Potassium Chloride Carbon Dioxide Anion Gap BUN Creatinine Estim Creat Clear Calc Est GFR (MDRD) Af Amer Est GFR (MDRD) Non-Af BUN/Creatinine Ratio Glucose Calcium Magnesium Troponin I High Sens 369 H* TSH Radiography Diagnostic Testing: Radiology Impression Chest X-Ray 06/15/21 07:19 IMPRESSION: 1. Bibasilar atelectasis. No airspace consolidation or pleural effusion. Electronically Signed: Alf Manley MD (Brooks) at 8:01 EDT , Service support , Discharge Plan Triage Chief Complaint: Chest Pain ED Provider: Emanuel Toscano Dx/Rx/DC Orders Clinical Impression: Chest pain, Current use of chcf anticoagulation, Elevated troponin, Atrial fibrillation, chronic Prescriptions: No Action metoprolol tartrate 50 MG tablet 50 mg PO BID RF: 0 food supplemt, lactose-reduced [Boost] 0.04 gram- 1 kcal/mL liquid 1 ea PO QDAY RF: 0 warfarin 5 mg tablet 5 mg PO SUMOFRSA RF: 0 warfarin 1 mg tablet 6 mg PO WE RF: 0 Primary Care Provider: Phoenix Howard Referrals: Phoenix Howard MD [Primary Care Provider] - Disposition Disposition: Acute Care [facility]
[2021-06-15 07:28] LABS: Absolute Lymphocyte Count 2.39 X10^3/uL (0.83-4.51); Absolute Neutrophil Count 4.3 X10^3/uL (2.0-7.7); Basophil# 0.03 X10^3/uL; Basophil% 0.4 % (0-1); Eosinophils% 1.3 % (0-5); Hematocrit 49.9 % (40-54); Hemoglobin 15.5 g/dL (13.0-16.5); Lymphocyte # 2.39 X10^3/ul (0.83-4.51); Lymphocyte % 31.7 % (19-41); Mean Corp Hgb Conc 31.1 g/dL (32-36); Mean Corpuscular Hgb 32.2 pg (27.0-32.0); Mean Corpuscular Volume 103.7 fL (80-94); Mean Platelet Vol. 11.8 fl (6.2-12.0); Monocyte# 0.66 X10^3/uL; Monocyte% 8.8 % (0-10); NRBC Flagged by Analyzer 0 % (0-5); Neutrophil # 4.33 X10^3/uL (2.7-7.7); Neutrophil % 57.5 % (47-70); Platelet Count 144 K/mm3 (150-450); RBC Distribution Width CV 12.6 % (11.6-14.6); RBC Distribution Width SD 48.8 fl (35.1-43.9); Red Blood Count 4.81 M/mm3 (4.6-6.2); White Blood Count 7.5 K/mm3 (4.4-11.0)
[2021-06-15 07:47] LABS: Anion Gap 2 (5-15); BUN 23 mg/dL (7-18); BUN/Creat Ratio 21.9 RATIO (10-20); Calcium,Total 9.2 mg/dL (8.5-10.1); Chloride 109 mmol/L (98-107); Creatinine, Serum 1.05 mg/dL (0.70-1.30); EST Glomerular Filtration Rate 72 mL/min (>60); Est Glom Filt Rate - Afr Amer 87 mL/min (>60); Estimated Creatinine Clearance 59.53 ml/min; Glucose 152 mg/dL (74-106); Magnesium 2.6 mg/dL (1.6-2.6); Potassium 4.5 mmol/L (3.5-5.1); Sodium Level 143 mmol/L (136-145); Thyroid Stim Hormone (TSH) 2.74 uIU/mL (0.358-3.74); Troponin-I HS 21 pg/mL (3.0-78.0)
[2021-06-15 07:58] LABS: International Normalized Ratio 2.2; Prothrombin Time (Protime)PT. 23.3 SECONDS (11.7-14.9)
[2021-06-15 07:59] LABS: Partial Thromboplast Time 36.9 Seconds (24.1-36.2)
[2021-06-15] MEDS: Nitroglycerin SL (ED/IMG/CATH) 0.4 MG TABLET SL ×3 (08:08→09:28)
--- NOTE | 2021-06-15 08:38 | ED.RN ---
Patient noted to be in Afib RVR HR of 160 on Tele. Patient then converted back to afib hr 76. Patient diaphoretic. MD notified. Last nitro dose not given per md.
[2021-06-15 09:13] LABS: Troponin-I HS 369 pg/mL (3.0-78.0)
[2021-06-15] MEDS: Morphine 4 MG/ML Syringe IV (09:37)
[2021-06-15] MEDS: Ondansetron 4 MG/2 ML Vial IV (09:37)
[2021-06-15] MEDS: 0.9% Normal Saline 1,000 ML 125 ML IV (09:43)
[2021-06-15] MEDS: Nitroglycerin Infusion 250 ML 3 MG CONT INF (09:48)
--- NOTE | 2021-06-15 10:00 | NURSING ---
[id number] MCKEON [phone] MCKEON [phone] MCKEON
--- NOTE | 2021-06-15 10:01 | NURSING ---
DR MCKEON RETURNED CALL
--- NOTE | 2021-06-15 10:09 | NURSING ---
DR IVON HAMILTON
--- NOTE | 2021-06-15 10:32 | NURSING ---
[address] DR IV[address] HOLLINSMD
--- NOTE | 2021-06-15 10:32 | PCM.HP.STD ---
[facility] - General General Date of Admission: 06/15/21 HPI Narrative PARK BEAUCHAMP, is a 81 M who presented to the emergency department [facility] on 06/15/2021 with a chief complaint of chest pain. Patient has a significant cardiac history that includes CABG with a mitral valve replacement 6 years ago. The patient reports that he was in lying in bed this morning at around 5:50 AM when he had midsternal chest discomfort that radiated to his bilateral arms and caused nausea and diaphoresis. He reported on admission that the symptoms lasted approximately 10 to 15 minutes and then they began to resolve. At the time of emergency physician evaluation he was still complaining of some chest pain and was therefore placed on a nitro drip. He was given 4 baby aspirin in the squad during transport. On further discussion, he reports that he has been having some intermittent spells recently in the last 2 weeks or he will be doing something and get lightheaded and somewhat woozy and feels odd. The and son are at bedside and state that they have witnessed these events as well.The patient is currently reporting he is pain-free on a nitro drip. His vital signs are currently stable. He did have a brief run of wide-complex tachycardia while he was in the emergency department that resolved after approximately 30 seconds and he is currently in normal sinus rhythm. He does have a history of atrial fibrillation and is currently on Coumadin with an INR of 2.2 on admission. His CBC was unremarkable other than some mild thrombocytopenia which is chronic. Platelets are 144. His BMP is overall unimpressive and his serum creatinine is normal. His serum glucose is mildly elevated 152 however this is not fasting. His TSH is within normal limits. He had high-sensitivity troponin drawn at 6:30 this morning and this was repeated at 8:35 AM they were 21 with a repeat at 369. His chest x-ray shows only some bibasilar atelectasis but no airspace disease. His EKG shows some ST depression in the lateral leads of V3 through V6 of about 1 mm. The case was discussed with the general agent on-call, Dr. Kelley, and he is looking at the Schedule for potential cardiac catheterization this afternoon. He will continue on a nitro drip. Patient is on Coumadin full dose therefore we will hold off on Lovenox or heparin at this time. [facility] Medical History (Updated 06/15/21 @ 10:[address] 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 Pulmonary embolism Home Medications metoprolol tartrate 50 mg tablet 50 mg PO BID tab 10/09/17 [History Last Taken Unknown] food supplemt, lactose-reduced 0.04 gram-1 kcal/mL oral liquid 1 ea PO QDAY ml 04/22/18 [History Last Taken Unknown] warfarin 5 mg PO FR06/15/21 [History Last Taken Unknown] warfarin 6 mg PO WE06/15/21 [History Last Taken Unknown] Allergy/AdvReac Type Severity Reaction Status Date / Time atorvastatin calcium Allergy Unknown Verified 06/15/21 06:48 [From Lipitor] ezetimibe [From Zetia] Allergy Unknown Verified 06/15/21 06:48 quinapril Allergy Unknown Verified 06/15/21 06:48 rosuvastatin calcium Allergy Unknown Verified 06/15/21 06:48 [From Crestor] Family History Mother CAD (coronary artery disease) Diabetes Brother CAD (coronary artery disease) Sister CAD (coronary artery disease) Sister CHF (congestive heart failure) Surgical History Aortocoronary bypass status (~05/2015) History of hernia repair History of maze procedure (~05/2015) History of mitral valve replacement with bioprosthetic valve (~05/2015) Social History Smoking Status: Never smoker alcohol intake: never substance use type: does not use caffeine: No Vital Signs Vital Signs Vital Signs: 06/15/21 06:44 06/15/21 06:48 06/15/21 07:30 Temperature 97.7 F L Temperature Source Oral Pulse Rate 88 Respiratory Rate 18 Respiratory Effort Normal Respiratory Pattern Normal Blood Pressure Blood Pressure Mean Blood Pressure Source Blood Pressure Position Blood Pressure Location Pulse Ox 95 95 Oxygen Delivery Method Room Air Room Air 06/15/21 08:08 06/15/21 08:15 06/15/21 09:28 Temperature Temperature Source Pulse Rate 83 82 84 Respiratory Rate Respiratory Effort Respiratory Pattern Blood Pressure 123/80 H 108/74 128/89 H Blood Pressure Mean Blood Pressure Source Blood Pressure Position Blood Pressure Location Pulse Ox Oxygen Delivery Method 06/15/21 09:29 06/15/21 09:48 06/15/21 10:23 Temperature Temperature Source Pulse Rate 89 76 69 Respiratory Rate 18 20 H Respiratory Effort Respiratory Pattern Blood Pressure 128/89 H 121/87 H 144/68 H Blood Pressure Mean 102 98 93 Blood Pressure Source Monitor Blood Pressure Position Semi-Fowlers Blood Pressure Location Right Arm Pulse Ox 97 94 Oxygen Delivery Method Room Air Room Air Weight Weight: 86.3 kg Body Mass Index (BMI) 25.8 Physical Exam Const alert, oriented x3 and no apparent distress Constitutional Narrative: Elderly white male sitting up in bed, son and at bedside, patient appears comfortable at this time, nontoxic, no signs of acute distress General Appearance: cooperative HEENT normocephalic, head/scalp atraumatic, moist oral mucous membranes and oropharynx normal HEENT Narrative: Mildly hard of hearing, dentures in place, no thrush, Mallampati 2 Mouth: oral and palatal mucosa normal Eyes PERRL, EOMs intact bilaterally and conjunctivae normal Neck no lymphadenopathy, supple, no JVD and no carotid bruits Neck Narrative: Trachea midline, no thyroid enlargement noted Resp normal respiratory effort, no retractions, no use of accessory muscles and clear to auscultation bilaterally Auscultation: Negative for crackles, rales, rhonchi or wheezes Cardio regular rate, S1 normal heart sound, S2 normal heart sound, no murmurs, no rub, no gallops, no clicks and no JVD Cardio Narrative: Irregular rhythm GI normal to inspection, nondistended, normoactive bowel sounds, soft to palpation, non-tender and non-distended Extremity normal to inspection and no clubbing, cyanosis or edema Extremity Narrative: Knee joints look arthritic Peripheral Pulses: Yes pulses 2+ throughout Skin no rashes or lesions noted, no wounds, skin turgor normal, no jaundice, no petechiae and no mottling Neuro oriented x3, CN's II-XII intact bilaterally, moves all extremities and no focal motor deficits Sensorium / Orientation: awake and alert Speech: speech normal Psych affect normal Results Lab / Micro Data Attestation: I reviewed the patient's lab results. Result Diagrams: 06/15/21 06:32 06/15/21 06:32 Labs: Laboratory Results - last 24 hr 06/15/21 06:32: WBC 7.5, RBC 4.81, Hgb 15.5, Hct 49.9, MCV 103.7 H, MCH 32.2 H, MCHC 31.1 L, RDW Std Deviation 48.8 H, RDW Coeff of Parmin[place] 12.6, Plt Count 144 L, MPV 11.8, Immature Gran % (Auto) 0.300, Neut % (Auto) 57.5, Lymph % (Auto) 31.7, [place] % (Auto) 8.8, Eos % (Auto) 1.3, Baso % (Auto) 0.4, Absolute Neuts (auto) 4.3, Absolute Lymphs (auto) 2.39, Nucleated RBC % 0 06/15/21 06:32: Sodium 143, Potassium 4.5, Chloride 109 H, Carbon Dioxide 32.0, Anion Gap 2 L, BUN 23 H, Creatinine 1.05, Estim Creat Clear Calc 59.53, Est GFR (MDRD) Af Amer 87, Est GFR (MDRD) Non-Af 72, BUN/Creatinine Ratio 21.9 H, Glucose 152 H, Calcium 9.2, Magnesium 2.6, Troponin I High Sens 21, TSH 2.74 06/15/21 07:27: PT 23.3 H, INR 2.2, APTT 36.9 H 06/15/21 08:35: Troponin I High Sens 369 H* Radiology Impression Chest X-Ray 06/15/21 07:19 IMPRESSION: 1. Bibasilar atelectasis. No airspace consolidation or pleural effusion. Electronically Signed: Alf Manley MD ([place]) at 8:01 EDT , Service support , Assessment & Plan Assessment/Plan (1) NSTEMI, initial episode of care: (2) Chest pain: (3) Elevated troponin: (4) Atrial fibrillation, chronic: PLAN: NSTEMI -High-sensitivity troponin from - 69 on delta troponin -EKG shows approximately [address] segment depression in V3 through V6 -Symptoms improved with nitro drip -Patient fully anticoagulated with Coumadin and an INR of 2.2 therefore hold heparin or Lovenox -N.p.o. -Patient does not tolerate statins -Start baby aspirin daily -Continue home beta-david -Lipids will be assessed -Check hemoglobin A1c given elevated serum glucose on admission -Cardiology consulted--> suspect patient will go to [facility] later today Wide-complex tachycardia -Unclear if patient's episodes are related to this occurring at home -If not captured regularly on telemetry here may need event monitor versus Holter monitor at discharge -Monitor on telemetry -Could also be A. fib with RVR and aberrancy -Cardiology following -Continue beta-david Chronic thrombocytopenia -144 on admission -Relatively stable -Continue to monitor Chronic atrial fibrillation -Hold Coumadin for now -Continue beta-david -Continue metoprolol CAD with history of CABG/mitral valve replacement -Has ALTMAN to LAD and saphenous vein graft to diagonal--> done 05/2015 -Patient with a 31 mm Mosaic bioprosthetic valve -Was stable on recent echo from 04/14/2021 Ascending aorta dilation -Mild aortic root dilation -Audiology is following Hyperlipidemia -Patient appears to have many sensitivities to statins -Check lipid panel Hypertension -Continue beta-david DVT prophylaxis -Patient fully anticoagulated and on Coumadin with an INR of 2.2 -Consider starting subcu Lovenox when INR is less than 2 CODE STATUS -Full code-unverified Charges/Coding Visit Charges Inpatient E&M: 78219 Init Hosp L3
--- NOTE | 2021-06-15 11:47 | EKG12_ITS ---
Test Reason : CP ADMIN Blood Pressure : / mmHG Vent. Rate : 078 BPM Atrial Rate : 085 BPM P-R Int : 000 ms QRS Dur : 090 ms QT Int : 430 ms P-R-T Axes : 000 047 079 degrees QTc Int : 490 ms Atrial fibrillation Nonspecific T wave abnormality Prolonged QT Abnormal ECG When compared with ECG of 15-JUN-2021 09:24, MANUAL COMPARISON REQUIRED, DATA IS UNCONFIRMED Confirmed by RUTH PANTOJA, CLINTON ([id number]), metropolitan editor ENID ALFORD ([id number]) on 06/20/2021 10:46:08 AM Referred By: IVON Confirmed By:CLINTON MIRANDA MD
--- NOTE | 2021-06-15 12:02 | ECHOL_ITS ---
Reason For Study: -NSTEMI Procedure This was a limited 2D transthoracic echocardiogram. Exam performed portable in patient room. Left Ventricle Moderately dilated left ventricle. The estimated ejection fraction is EF 25-30 %. Right Ventricle Normal right ventricle. Normal systolic function. Atria The left atrium is mildly enlarged. The right atrium is mildly enlarged. Mitral Valve Normal Bioprothetic MV. Tricuspid Valve Normal tricuspid valve. Mild tricuspid valve insufficiency. Aortic Valve Mild diffuse aortic valve calcification. Mild-Moderate (1-2+) aortic valve insufficiency. Pulmonic Valve The pulmonic valve is not well visualized. Great Vessels Mildly dilated aortic root. Pericardium/Pleural No pericardial effusion. MMode/2D Measurements & Calculations LVIDd: 5.5 cm IVSd: 1.2 cm LVAd ap4: 41.5 cm2 LVIDs: 3.7 cm LVPWd: 1.4 cm LVLd ap4: 9.2 cm FS: 32.3 % EDV(MOD-sp4): 153.9 ml EDV(sp4-el): 158.6 ml LVAs ap4: 33.4 cm2 LVLs ap4: 8.7 cm ESV(MOD-sp4): 102.3 ml ESV(sp4-el): 109.0 ml EF(MOD-sp4): 33.5 % EF(sp4-el): 31.3 % LVAd ap2: 41.5 cm2 SV(MOD-sp4): 51.6 ml SV(MOD-sp2): 62.2 ml LVLd ap2: 9.8 cm EDV(MOD-sp2): 147.0 ml EDV(sp2-el): 149.5 ml LVAs ap2: 30.5 cm2 LVLs ap2: 8.8 cm ESV(MOD-sp2): 84.8 ml ESV(sp2-el): 89.7 ml EF(MOD-sp2): 42.3 % SV(sp4-el): 49.6 ml Doppler Measurements & Calculations TR max man: 265.4 cm/sec TR max P.2 mmHg ECHO/Echo, Limited Study Interpretation Summary The estimated ejection fraction is EF 25-30 %. Severe LV systolic Dysfunction with anteroapical/septal Hypokinesia Mild to moderate AI Normal Bioprothetic MV Significant change from echo 04/14/21 with severely worsening LV systolic funvtio n and wall motion abnormalities Ordering Physician: Shanda Burgess Referring Physician: SAIMA AKINS Performed By: Terri Salvador, ANIKET, RVT
--- NOTE | 2021-06-15 12:03 | CON.PCM.CA_ITS ---
Documented by User: YONATAN Au 06/15/21 12:57 Assessment & Plan Assessment/Plan (1) NSTEMI, initial episode of care: (2) History of mitral valve replacement with bioprosthetic valve: (3) Essential hypertension: (4) Longstanding persistent atrial fibrillation: (5) Chest pain: (6) Hyperlipidemia: QUALIFIERS: Hyperlipidemia type: unspecified Qualified Code(s): E78.5 - Hyperlipidemia, unspecified PLAN: * with elevated troponin would like to pursue a heart cath, however since he is on coumadin, would like to hold this today, start heparin and pursue heart cath tomorrow. He will be given Vitamin K. He will continue with his ASA. * Pt can continue with current dose of metoprolol, if he continues to have elevated rates may consider increasing. He is allergic to lisinopril. * Blood pressure seems to be controlled, will continue with medications and continue to monitor. * Pt has been intolerant to statins HPI Consult Data Date of Consult: 06/15/21 HPI Narrative HPI Narrative: PARK BEAUCHAMP, is a 81 M [address] [facility] ER for chest pain. Patient notes that he had discomfort in his chest around 6 AM that was mid sternal and radiated bilaterally his arms making it difficult for his arms to move. This also caused nausea and diaphoresis. This did resolve after breath 15 minutes. This prompted him to call EMS. However he does continue to have mild discomfort which is about a 2 out of 10. While in the emergency room it was noted that he had atrial fibrillation with RVR with heart rates up to 160 bpm initial EKG demonstrated atrial fibrillation with a regular rate. Initial troponin was 21 however second troponin was elevated at 369. There was noted to have some ST depression on the cardiac technician. Patient was started on a nitroglycerin drip at this time and was also given morphine and Zofran. Patient was admitted for further evaluation. Because he is on Coumadin would like to hold off on heart catheterization until tomorrow. He does have a hx of CAD, CABG (ALTMAN to the LAD and SVG to the diagonal branch), mitral valve replacement with a 31 mm pericardial bioprosthetic valve with preservation of the anterior mitral valve apparatus, permanent atrial fibrillation, hypertension and hyperlipidemia. Presented to our office approximately 6 weeks ago for routine appointment and had noted left shoulder and neck discomfort in which he felt more short of breath with activity. Echocardiogram was approved however stress test was denied by insurance company. [facility] Medical History (Updated 06/15/21 @ 10:[address] 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 Pulmonary embolism Home Medications metoprolol tartrate 50 mg tablet 50 mg PO BID tab 10/09/17 [History Last Taken Unknown] warfarin 5 mg PO FR06/15/21 [History Last Taken Unknown] warfarin 6 mg PO 06/15/21 [History Last Taken Unknown] Allergy/AdvReac Type Severity Reaction Status Date / Time atorvastatin calcium Allergy Unknown Verified 06/15/21 06:48 [From Lipitor] ezetimibe [From Zetia] Allergy Unknown Verified 06/15/21 06:48 quinapril Allergy Unknown Verified 06/15/21 06:48 rosuvastatin calcium Allergy Unknown Verified 06/15/21 06:48 [From Crestor] Family History Mother CAD (coronary artery disease) Diabetes Brother CAD (coronary artery disease) Sister CAD (coronary artery disease) Sister CHF (congestive heart failure) Surgical History Aortocoronary bypass status (~05/2015) History of hernia repair History of maze procedure (~05/2015) History of mitral valve replacement with bioprosthetic valve (~05/2015) Social History Smoking Status: Never smoker alcohol intake: never substance use type: does not use caffeine: No ROS Constitutional Constitutional: Reports systems reviewed and no addt'l complaints, except as documented Eyes Eyes: Reports systems reviewed and no addt'l complaints, except as documented ENT HEENT: Reports systems reviewed and no addt'l complaints, except as documented Cardiovascular Cardiovascular: Reports systems reviewed and no addt'l complaints, except as documented Respiratory/Chest Respiratory/Chest: Reports systems reviewed and no addt'l complaints, except as documented Gastrointestinal Gastrointestinal: Reports systems reviewed and no addt'l complaints, except as documented Musculoskeletal Musculoskeletal: Reports systems reviewed and no addt'l complaints, except as documented Neurologic Neurologic: Reports systems reviewed and no addt'l complaints, except as documented Physical Exam Const alert, oriented x3, no apparent distress, average body habitus and well nourished HEENT normocephalic, head/scalp atraumatic, hearing grossly normal bilaterally and moist oral mucous membranes Eyes PERRL, EOMs intact bilaterally, conjunctivae normal and no scleral icterus Neck full ROM, no lymphadenopathy, supple and no JVD Chest inspection of chest normal Resp normal respiratory effort, normal air movement, no retractions, no use of accessory muscles and clear to auscultation bilaterally Cardio Rate: regular rate Rhythm: abnormal rhythm irregularly irregular Heart Sounds: S1 normal and S2 normal; Negative for click, gallop, murmur or rub Bruits: Negative for carotid bruit Peripheral Pulses: pulses 2+ throughout GI normal to inspection, nondistended, normoactive bowel sounds, soft to palpation, non-tender and non-distended Extremity normal to inspection, normal capillary refill and no clubbing, cyanosis or edema Neuro oriented x3, CN's II-XII intact bilaterally, moves all extremities and no focal motor deficits Charges/Coding Visit Charges Office Visits / Consults: [id number] IP Consult L5 Objective Data Vital Signs: Vital Signs Temp Pulse Resp BP Pulse Ox 97.5 F L 76 17 116/82 H 94 06/15/21 11:00 06/15/21 11:45 06/15/21 11:25 06/15/21 12:00 06/15/21 11:55 Oxygen Flow Rate (L/min) 2 Oxygen Delivery Method Nasal Cannula Weight: 200 lb 6.4 oz Body Mass Index (BMI) 27.1 Intake & Output: Intake and Output for Last 24 Hours 06/13/21 06/14/21 06/15/21 23:59 23:59 23:59 Intake Total 273.27 / 273.27 Balance 273.27 / 273.27 Lab / Micro Data Result Diagrams: 06/15/21 06:32 06/15/21 06:32 Labs: Laboratory Results - last 24 hr 06/15/21 06:32: WBC 7.5, RBC 4.81, Hgb 15.5, Hct 49.9, MCV 103.7 H, MCH 32.2 H, MCHC 31.1 L, RDW Std Deviation 48.8 H, RDW Coeff of Parminder 12.6, Plt Count 144 L, MPV 11.8, Immature Gran % (Auto) 0.300, Neut % (Auto) 57.5, Lymph % (Auto) 31.7, [place] % (Auto) 8.8, Eos % (Auto) 1.3, Baso % (Auto) 0.4, Absolute Neuts (auto) 4.3, Absolute Lymphs (auto) 2.39, Nucleated RBC % 0 06/15/21 06:32: Sodium 143, Potassium 4.5, Chloride 109 H, Carbon Dioxide 32.0, Anion Gap 2 L, BUN 23 H, Creatinine 1.05, Estim Creat Clear Calc 59.53, Est GFR (MDRD) Af Amer 87, Est GFR (MDRD) Non-Af 72, BUN/Creatinine Ratio 21.9 H, G lucose 152 H, Calcium 9.2, Magnesium 2.6, Troponin I High Sens 21, TSH 2.74 06/15/21 07:27: PT 23.3 H, INR 2.2, APTT 36.9 H 06/15/21 08:35: Troponin I High Sens 369 H* Micro: Microbiology 06/15/21 10:15 Nasal Secretion SARS-CoV-2 Antigen (Rapid) - Final Cardiology Labs/Tests 06/15/21 06:32: WBC 7.5, RBC 4.81, Hgb 15.5, Hct 49.9, MCV 103.7 H, MCH 32.2 H, MCHC 31.1 L, Plt Count 144 L, MPV 11.8, Immature Gran % (Auto) 0.300, Neut % (Auto) 57.5, Lymph % (Auto) 31.7, [place] % (Auto) 8.8, Eos % (Auto) 1.3, Baso % (Auto) 0.4, Absolute Neuts (auto) 4.3, Nucleated RBC % 0 06/15/21 06:32: Sodium 143, Potassium 4.5, Chloride 109 H, Carbon Dioxide 32.0, Anion Gap 2 L, BUN 23 H, Creatinine 1.05, Est GFR (MDRD) Af Amer 87, Est GFR (MDRD) Non-Af 72, BUN/Creatinine Ratio 21.9 H, Glucose 152 H, Calcium 9.2, Magnesium 2.6 06/15/21 07:27: PT 23.3 H, INR 2.2, APTT 36.9 H Rhythm: EKG: ECHO: 04/2021: Left ventricular systolic function is normal. The estimated ejection fraction is 60 %. Post operative septal motion. Severe concentric left ventricular hypertrophy. Stable appearing bioprosthetic mitral valve apparatus. Mild tricuspid valve insufficiency. Mild focal aortic valve calcification. Mild (1+) aortic valve insufficiency. Mildly dilated aortic root. Right ventricular systolic pressure estimated to be 23 mmHg. Unable to assess diastolic dysfunction. Stress Test: Cardiac Cath: PCI: CT Surgery: Holter monitor: EPS: PPM: CXR: Chest CT Scan: Radiography Diagnostic Testing: Radiology Impression Chest X-Ray 06/15/21 07:19 IMPRESSION: 1. Bibasilar atelectasis. No airspace consolidation or pleural effusion. Electronically Signed: Alf Manley MD (Brooks) at 8:01 EDT , Service support , Documented by User: Dr. Kenney Kelley MD 06/15/21 14:09 Assessment & Plan Assessment/Plan (1) NSTEMI, initial episode of care: (2) History of mitral valve replacement with bioprosthetic valve: (3) Atrial fibrillation, chronic: (4) Aortocoronary bypass status: PLAN: This patient seen and evaluated today at bedside and agree with the current evaluation by the midlevel I review all the data regarding his presentation he came with symptoms of retrosternal chest pain typical of angina some radiation to the jaw onto the left arm patient had history of CAD with the bypass surgery done in 2014 with ALTMAN to LAD, SVG graft to diagonal and he had a paroxysmal atrial fibrillation and was on Coumadin with an INR today 2.2 he follows regularly with the [facility] in the office and the electrocardiogram revealed persistent A. fib with controlled ventricular rate and cardiac examination essentially normal his vitals have been stable patient was started on heparin, nitroglycerin. In addition patient has bioprosthetic mitral valve surgery in 2014 Cardiac recommendation and plan; 1. Coumadin is on hold 2. Patient will be given vitamin K with the plan of checking INR tomorrow 3. We will start on heparin based on his weight 4. We will continue nitroglycerin drip 5. Cardiac catheterization to assess progression of CAD and to keep a record of a series of cardiac biomarkers high sensitive troponins. His presentation and cardiac care plan was discussed in detail with his primary life skills coordinator Dr. Alexander. Patient would undergo cardiac catheterization tomorrow. HPI Consult Data Date of Consult: 06/15/21 [facility] Medical History (Updated 06/15/21 @ 10:[address] 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 Pulmonary embolism Home Medications metoprolol tartrate 50 mg tablet 50 mg PO BID tab 10/09/17 [History Last Taken Unknown] warfarin 5 mg PO FRSA 06/15/21 [History Last Taken Unknown] warfarin 6 mg PO WETH 06/15/21 [History Last Taken Unknown] Allergy/AdvReac Type Severity Reaction Status Date / Time atorvastatin calcium Allergy Unknown Verified 06/15/21 06:48 [From Lipitor] ezetimibe [From Zetia] Allergy Unknown Verified 06/15/21 06:48 quinapril Allergy Unknown Verified 06/15/21 06:48 rosuvastatin calcium Allergy Unknown Verified 06/15/21 06:48 [From Crestor] Family History Mother CAD (coronary artery disease) Diabetes Brother CAD (coronary artery disease) Sister CAD (coronary artery disease) Sister CHF (congestive heart failure) Surgical History Aortocoronary bypass status (~05/2015) History of hernia repair History of maze procedure (~05/2015) History of mitral valve replacement with bioprosthetic valve (~05/2015) Social History Smoking Status: Never smoker alcohol intake: never substance use type: does not use caffeine: No Lab / Micro Data Result Diagrams: 06/15/21 06:32 06/15/21 06:32
[2021-06-15] MEDS: HEPARIN/D5w 25,000 UNITS 25,000 UNITS/250 ML IV.SOLN. 7 UNITS IV (13:27)
--- NOTE | 2021-06-15 14:07 | CASEMGMT ---
According to the [employer] website, the following are in-network tertiary facilities: [facility], [facility], [facility], [facility], [facility], [employer], and . Amy SHABAZZ CM
[2021-06-15] MEDS: Phytonadione (Vit K1) 5 MG TABLET PO (14:16)
[2021-06-15 16:28] LABS: Troponin-I HS 1318 pg/mL (3.0-78.0)
[2021-06-15] MEDS: Morphine 2 MG/ML Syringe IV (16:39)
--- NOTE | 2021-06-15 16:51 | EKG12_ITS ---
Test Reason : CHEST TIGHTNESS Blood Pressure : / mmHG Vent. Rate : 071 BPM Atrial Rate : 441 BPM P-R Int : 000 ms QRS Dur : 084 ms QT Int : 420 ms P-R-T Axes : 000 046 139 degrees QTc Int : 456 ms Atrial fibrillation Nonspecific ST and T wave abnormality Abnormal ECG When compared with ECG of 15-JUN-2021 11:47, MANUAL COMPARISON REQUIRED, DATA IS UNCONFIRMED Confirmed by RUTH PANTOJA, CLINTON ([id number]), video news editor ENID ALFORD ([id number]) on 06/20/2021 10:42:47 AM Referred By: IVON Confirmed By:CLINTON MIRANDA MD
[2021-06-15 20:34] LABS: Partial Thromboplast Time 46.7 Seconds (24.1-36.2)
[2021-06-15] MEDS: Heparin Injection (Vial) 5,000 UNIT/ML VIAL IV (20:50)
[2021-06-15] MEDS: Metoprolol Tartrate 50 MG Tablet PO (20:52)
[2021-06-16] VITALS (34 sets, daily range): BP systolic 93–143; BP diastolic 51–90; PULSE 61–92; RESP 12–23; TEMP 36.7–37.7; O2SAT 92–98
[2021-06-16 03:15] LABS: Hematocrit 40.1 % (40-54); Hemoglobin 12.6 g/dL (13.0-16.5); Mean Corp Hgb Conc 31.4 g/dL (32-36); Mean Corpuscular Hgb 32.6 pg (27.0-32.0); Mean Corpuscular Volume 103.9 fL (80-94); Mean Platelet Vol. 11.6 fl (6.2-12.0); POSITIVE COUNT YES; Platelet Count 98 K/mm3 (150-450); RBC Distribution Width CV 12.8 % (11.6-14.6); RBC Distribution Width SD 48.9 fl (35.1-43.9); Red Blood Count 3.86 M/mm3 (4.6-6.2); White Blood Count 8.6 K/mm3 (4.4-11.0)
[2021-06-16 03:19] LABS: Scan Indicated on CBC? Y/N YES- FLAGS NOTED
[2021-06-16 03:26] LABS: Partial Thromboplast Time 75.5 Seconds (24.1-36.2)
[2021-06-16 03:54] LABS: International Normalized Ratio 2.4
[2021-06-16 04:23] LABS: Phosphorus 3.1 mg/dL (2.5-4.9)
[2021-06-16 04:24] LABS: ALB/GLOB Ratio 0.9 RATIO (0.9-2.4); AST(SGOT) 26 U/L (15-37); Alanine Aminotransfer ALT/SGPT 28 U/L (16-61); Albumin, Serum 2.8 g/dL (3.2-5.0); Alkaline Phosphatase 55 U/L (45-117); Anion Gap 4 (5-15); BUN 20 mg/dL (7-18); BUN/Creat Ratio 22.9 RATIO (10-20); Calcium,Total 8.1 mg/dL (8.5-10.1); Chloride 108 mmol/L (98-107); Cholesterol 136 mg/dL (200); Creatinine, Serum 0.88 mg/dL (0.70-1.30); EST Glomerular Filtration Rate 89 mL/min (>60); Est Glom Filt Rate - Afr Amer 107 mL/min (>60); Estimated Creatinine Clearance 71.04 ml/min; Globulin 3.1 g/dL (2.2-4.2); Glucose 139 mg/dL (74-106); High Density Lipoprotein 38 mg/dL; Potassium 4.4 mmol/L (3.5-5.1); Protein, Total 5.9 g/dL (6.4-8.2); Sodium Level 140 mmol/L (136-145); Triglycerides 65 mg/dL; Very Low Density Lipoprotein 13 mg/dL (5-40)
--- NOTE | 2021-06-16 05:00 | EKG12_ITS ---
Test Reason : Blood Pressure : / mmHG Vent. Rate : 086 BPM Atrial Rate : 057 BPM P-R Int : 000 ms QRS Dur : 094 ms QT Int : 402 ms P-R-T Axes : 000 049 031 degrees QTc Int : 481 ms Atrial fibrillation with premature ventricular or aberrantly conducted complexes Nonspecific ST abnormality Prolonged QT Abnormal ECG Confirmed by TESS PANTOJA, REBECA ([id number]), order editor ENID ALFORD ([id number]) on 06/19/2021 1:01:15 PM Referred By: DOUGLAS Confirmed By:REBECA PULIDO MD
[2021-06-16] MEDS: 0.9% Normal Saline 1,000 ML 15 ML IV (06:39)
[2021-06-16] MEDS: Metoprolol Tartrate 50 MG Tablet PO (06:39)
[2021-06-16] MEDS: Aspirin E.C. 81 MG Tablet PO (06:40)
[2021-06-16 07:40] LABS: Hemoglobin A1c 5.5 % (3.8-5.6)
[2021-06-16] MEDS: 0.9% Saline Lock 10 ML Syringe IV ×4 (08:40→22:57)
[2021-06-16 09:37] LABS: International Normalized Ratio 1.9; Prothrombin Time (Protime)PT. 21.1 SECONDS (11.7-14.9)
[2021-06-16] MEDS: Nitroglycerin Oint 1 INCH PACKET TD ×2 (10:11→17:23)
--- NOTE | 2021-06-16 13:10 | PN.CARD_ITS ---
Documented by User: Shanda TAM, YONATAN 06/16/21 13:33 Subjective Subjective Pt had no new complaints His coumadin was held and he was given Vitamin K to lower his INR prior to his heart cath today EF was noted to be lower on echocardiogram yesterday. Objective Data Vital Signs: Vital Signs Temp Pulse Resp BP Pulse Ox 98.9 F 64 12 110/60 97 06/16/21 07:40 06/16/21 10:11 06/16/21 07:53 06/16/21 10:11 06/16/21 08:17 Oxygen Flow Rate (L/min) 2 Oxygen Delivery Method Nasal Cannula Weight: 200 lb 6.4 oz Body Mass Index (BMI) 27.1 Intake & Output: Intake and Output for Last 24 Hours 06/14/21 06/15/21 06/16/21 23:59 23:59 23:59 Intake Total 623.32 / 635.32 248.70 / 248.70 Balance 623.32 / 635.32 248.70 / 248.70 Lab / Micro Data Result Diagrams: 06/16/21 03:00 06/16/21 03:00 Labs: Laboratory Results - last 24 hr 06/15/21 15:30: Troponin I High Sens 1318 H* 06/15/21 19:40: APTT 46.7 H 06/16/21 03:00: WBC 8.6, RBC 3.86 L, Hgb 12.6 L, Hct 40.1, MCV 103.9 H, MCH 32.6 H, MCHC 31.4 L, RDW Std Deviation 48.9 H, RDW Coeff of Parimnder 12.8, Plt Count 98 L, MPV 11.6 06/16/21 03:00: Sodium 140, Potassium 4.4, Chloride 108 H, Carbon Dioxide 28.0, Anion Gap 4 L, BUN 20 H, Creatinine 0.88, Estim Creat Clear Calc 71.04, Est GFR (MDRD) Af Amer 107, Est GFR (MDRD) Non-Af 89, BUN/Creatinine Ratio 22.9 H, Glucose 139 H, Calcium 8.1 L, Magnesium 2.0, Total Bilirubin 1.10 H, AST 26, ALT 28, Alkaline Phosphatase 55, Total Protein 5.9 L, Albumin 2.8 L, Globulin 3.1, Albumin/Globulin Ratio 0.9, Triglycerides 65, Cholesterol 136, LDL Cholesterol 85, VLDL Cholesterol 13, HDL Cholesterol 38 L, TSH 0.50 06/16/21 03:00: Phosphorus 3.1 06/16/21 03:00: Hemoglobin A1c 5.5 06/16/21 03:00: PT 25.0 H, INR 2.4 06/16/21 03:00: APTT 75.5 H 06/16/21 09:18: PT 21.1 H, INR 1.9 Micro: Microbiology 06/15/21 10:15 Nasal Secretion SARS-CoV-2 Antigen (Rapid) - Final Cardiology Labs/Tests 06/15/21 19:40: APTT 46.7 H 06/16/21 03:00: WBC 8.6, RBC 3.86 L, Hgb 12.6 L, Hct 40.1, MCV 103.9 H, MCH 32.6 H, MCHC 31.4 L, Plt Count 98 L, MPV 11.6 06/16/21 03:00: Sodium 140, Potassium 4.4, Chloride 108 H, Carbon Dioxide 28.0, Anion Gap 4 L, BUN 20 H, Creatinine 0.88, Est GFR (MDRD) Af Amer 107, Est GFR (MDRD) Non-Af 89, BUN/Creatinine Ratio 22.9 H, Glucose 139 H, Calcium 8.1 L, Magnesium 2.0, Total Bilirubin 1.10 H, Triglycerides 65, Cholesterol 136, LDL Cholesterol 85, VLDL Cholesterol 13, HDL Cholesterol 38 L 06/16/21 03:00: Phosphorus 3.1 06/16/21 03:00: Hemoglobin A1c 5.5 06/16/21 03:00: PT 25.0 H, INR 2.4 06/16/21 03:00: APTT 75.5 H 06/16/21 09:18: PT 21.1 H, INR 1.9 Rhythm: Afib ECHO: 04/2021: Left ventricular systolic function is normal. The estimated ejection fraction is 60 %. Post operative septal motion. Severe concentric left ventricular hypertrophy. Stable appearing bioprosthetic mitral valve apparatus. Mild tricuspid valve insufficiency. Mild focal aortic valve calcification. Mild (1+) aortic valve insufficiency. Mildly dilated aortic root. Right ventricular systolic pressure estimated to be 23 mmHg. Unable to assess diastolic dysfunction. Cardiac Cath: PCI: CXR 06/15/21: 1. Bibasilar atelectasis. No airspace consolidation or pleural effusion. Radiography Diagnostic Testing: Radiology Impression Echocardiogram 06/15/21 12:02 Interpretation Summary The estimated ejection fraction is EF 25-30 %. Severe LV systolic Dysfunction with anteroapical/septal Hypokinesia Mild to moderate AI Normal Bioprothetic MV Significant change from echo 04/14/21 with severely worsening LV systolic funvtion and wall motion abnormalities Ordering Physician: Shanda Burgess Referring Physician: SAIMA AKINS Performed By: Terri Salvador, ANIKET, RVT Physical Exam Const alert, oriented x3, no apparent distress, average body habitus and well nourished HEENT normocephalic, head/scalp atraumatic, hearing grossly normal bilaterally and moist oral mucous membranes Eyes PERRL, EOMs intact bilaterally, conjunctivae normal and no scleral icterus Neck full ROM, no lymphadenopathy, supple and no JVD Chest inspection of chest normal Resp normal respiratory effort, normal air movement, no retractions, no use of accessory muscles and clear to auscultation bilaterally Cardio Rate: regular rate Rhythm: abnormal rhythm irregularly irregular Heart Sounds: S1 normal and S2 normal; Negative for click, gallop, murmur or rub Bruits: Negative for carotid bruit Peripheral Pulses: pulses 2+ throughout GI normal to inspection, nondistended, normoactive bowel sounds, soft to palpation, non-tender and non-distended Extremity normal to inspection, normal capillary refill and no clubbing, cyanosis or edema Neuro oriented x3, CN's II-XII intact bilaterally, moves all extremities and no focal motor deficits Assessment & Plan Assessment/Plan (1) NSTEMI, initial episode of care: (2) History of mitral valve replacement with bioprosthetic valve: (3) Essential hypertension: (4) Longstanding persistent atrial fibrillation: (5) Chest pain: (6) Hyperlipidemia: QUALIFIERS: Hyperlipidemia type: unspecified Qualified Code(s): E78.5 - Hyperlipidemia, unspecified (7) Cardiomyopathy: PLAN: * Pt underwent a heart cath, he did have stenting to his ALTMAN. * Since he is on coumadin, will start him on Plavix tomorrow, will continue with ASA * with his decreased EF will switch his metoprolol to coreg. He is allergic to lisinopril, if BP tolerates will consider losartan tomorrow * will plan on repeating echocardiogram in a few months to recheck LV function * Pt has been intolerant to statins Charges/Coding Visit Charges Inpatient E&M: 18473 Subs Hosp L3 Documented by User: Dr. Kenney Kelley MD 06/16/21 16:43 Lab / Micro Data Result Diagrams: 06/16/21 03:00 06/16/21 03:00 Assessment & Plan Assessment/Plan (1) NSTEMI, initial episode of care: (2) History of mitral valve replacement with bioprosthetic valve: (3) Elevated troponin: (4) Atrial fibrillation, chronic: (5) care home (current) use of anticoagulants: (6) Aortocoronary bypass status: PLAN: I reviewed the current data, including lab, current medication and finding of cardiac catheterization and discuss cardiac care plan and agree with the documentation by the midlevel. Patient presented with non-ST elevation [place] Had severe LV systolic dysfunction History of CAD with CABG ALTMAN to LAD, SVG to diagonal Underwent cardiac catheterization today Noted there is a sluggish flow of ALTMAN to LAD, therefore we will proceed with PCI of the [place] LAD using drug-eluting stent and were able to achieve a FENG-3 flow in the LAD Also we reviewed all his current medication will continue current medication Finding of cardiac catheterization and cardiac care plan also discussed with his primary lean sensei Dr. Alexander.
--- NOTE | 2021-06-16 13:45 | EKG12_ITS ---
Test Reason : AM EKG Blood Pressure : / mmHG Vent. Rate : 080 BPM Atrial Rate : 078 BPM P-R Int : 000 ms QRS Dur : 086 ms QT Int : 426 ms P-R-T Axes : 000 049 138 degrees QTc Int : 491 ms Atrial fibrillation T wave abnormality, consider lateral ischemia Prolonged QT Abnormal ECG When compared with ECG of 15-JUN-2021 16:51, MANUAL COMPARISON REQUIRED, DATA IS UNCONFIRMED Confirmed by RUTH PANTOJA, CLINTON ([id number]), news copy editor ENID ALFORD ([id number]) on 06/20/2021 10:35:50 AM Referred By: IVON Confirmed By:CLINTON MIRANDA MD
--- NOTE | 2021-06-16 13:46 | PCI.CARDCATH ---
PCI Cardiac Cath Report PCI Report: 1. Left heart catheterization 2. Selective left coronary angiography 3. Selective right cholangiography 4. Selective SVG graft to diagonal 5. Selective ALTMAN to LAD 6. Successful PCI of mid LAD with predilatation using 2 x 15 mm balloon, followed by placement of drug-eluting stent 3 x 18 mm Orsiro, followed by postdilatation using 3 x 15 mm NC balloon And achievement of reduction of stenosis from 90% mid LAD eccentric lesion to 0% and improvement in the FENG flow from FENG I to FENG-3 flow in the LAD. Consent; Risk and benefit of the procedure explained in detail patient elected to proceed informed consent obtained. Preprocedure diagnosis This 81-year-old patient with history of CAD, has mitral valve replacement with bioprosthetic valve, presented with shortness of breath and significant elevation of cardiac biomarkers high sensitive troponin with a clinical diagnosis of non-ST elevation AK Patient had history of CAD with coronary bypass surgery with ALTMAN to LAD and SVG graft to diagonal Also patient has longstanding persistent atrial fibrillation. His primary commodity supervisor is Dr. Alexander and we discussed the cardiac care plan and the plan of proceeding with cardiac catheterization to evaluate for progression of CAD and assess the SVG graft and ALTMAN graft. Noted his LV function is severely reduced on echocardiogram with EF in the range of 25-30% which is significant change from prior ejection fraction evaluation. Diagnostic catheter and interventional equipment; 1. 6 [place] sheath placed in the right common femoral artery 2. 5 [place] JL 5 diagnostic catheter 3. 5 [place] JR4 catheter 4. 6 [place] G L4 guide catheter 5. 0.014 run-through extra floppy 180 cm guidewire 6. 2 x 15 mm emerge balloon 7. 3 x 18 mm drug-eluting stent/Orsiro 8. 3 x 15 mm NC balloon 9. Placement of Perclose to close the right common femoral artery arteriotomy site. Procedure in detail; Patient brought to the Rn Teacher in fasting state Right groin prepped and draped in the usual sterile fashion We proceed with a 6 [place] sheath placed in the right common femoral artery under fluoroscopic guidance, proceed with a 5 [place] JL 5 advanced ascending aorta cannulated the left main without difficulty multiple views of the left main coronary system obtained following this catheter exchanged for 5 [place] R for catheter cannulated the RCA ostium on multiple views of the RCA including INDONESIAN and WILLAMS cranial and caudal views Findings the JR catheter was used to cannulate the SVG graft to the diagonal And the same catheter was used to get access through the left subclavian exchange with IM catheter cannulated the ALTMAN and 3 views for the ALTMAN to LAD were obtained Following this we proceed with interventional plan, we use 6 [place] JR4 guide catheter cannulated the left main and the new proceed with a run-through wire across the lesion in the LAD, followed by predilatation and placement of drug-eluting stent, postdilatation with NC balloon and achievement of an excellent result with a FENG-3 flow in the LAD Findings Hemodynamic patient Central aortic pressure and EKG monitors were stable Due to severe LV dysfunction left ventriculogram was not obtained. Finding of cholangiography; Left main is short calcified bifurcating into the LAD and the left circumflex The left anterior descending is a large vessel reach all the way to the apex and angiographically mid LAD after the first diagonal branch had eccentric 90% stenosis Left circumflex ostial had nonobstructive sclerosis of around 30 to 40% the left circumflex is moderate in size Right coronary artery is large dominant with ectasia and nonobstructive atherosclerosis involving the proximal and the mid RCA Graft angiography; 1. Patent SVG graft to diagonal 2. Ostial left internal mammary artery of around 50 with a sluggish flow from the ALTMAN to the LAD. Conclusion; Successful percutaneous core intervention of the mash[place] mid LAD unsuccessful placement of drug-eluting stent with reduction of stenosis from 90% to 0 and improvement of the FENG flow from FENG I to FENG-3 flow Patient tolerated the procedure very well with no complication his symptoms of chest pain resolved and there were no significant change in the leg or cardiogram and hemodynamically was stable Right common femoral artery endograft obtain and Perclose used to close arteriotomy site with no complication in the Rn Teacher Recommendations; 1. Patient will be on DAPT/Brilinta 90 mg twice daily in addition to low-dose aspirin for 1 year 2. We will continue with Integrilin over the night for 18-hour 3. We will resume Coumadin in the morning due to the A. fib 4. We will added beta-david carvedilol low-dose 5. Patient is allergic to statin including rosuvastatin and atorvastatin and as well he is allergic to ZAIN inhibitor If tolerated we will consider ARB/losartan if no history of allergy with the plan of possibly starting on Entresto as an outpatient. 6. Patient has severe LV systolic dysfunction and will be followed by his primary commodity supervisor Dr. Alexander to reevaluate LV function and to discuss further plan. 7. We will start the patient on phase 1 cardiac rehab program with [facility] Kenney Kelley MD,FACC,[facility]
--- NOTE | 2021-06-16 14:24 | CRPHASE1_ITS ---
Patient Communication Former Patient:: Phase I PHII Cardiac Rehab Discussed with Patient:: Yes Guide to Cardiac Rehab Given to Patient:: Yes Cardiac Rehab Facility Choice List Given to Patient:: Yes Choice Program [facility] CR PHII:: Communication Given to CR Choice Program Other:: Communication Given to CR Machine Pack Assembler:: Kenney Kelley Phase II Cardiac Rehab:: Yes Sessions:: 36 sessions - 3 days/wk, 12 weeks Cardiac Rehabilitation Info Cardiac Rehabilitation Program Information: Cardiac Rehabilitation is important for patients like you who are recovering from a heart problem. Cardiac rehabilitation programs are recognized as integral to the continued care of the patient with coronary heart disease. The cardiac rehabilitation program is designed to optimize a patient's physical, psychological, and social functioning. Health critical care physician assistant work in cardiac rehabilitation programs and assist you with getting the treatments you need to get stronger and healthier - like exercise, healthy eating habits, and medications. Cardiac rehabilitation has been show to help people with heart problems live longer and have better life enjoyment than people who do not go to cardiac rehabilitation. Please contact the Cardiac Rehabilitation Program at [facility] at in two weeks if you have not heard from them.
--- NOTE | 2021-06-16 14:24 | CRPH1.INSTRU ---
General Education CAD and cardiac anatomy and function:: Patient communicates acknowledgment Explanation of diagnoses and procedures:: Patient communicates acknowledgment Sign/Symptoms of AL:: Patient communicates acknowledgment Antiplatelet therapy: Patient communicates acknowledgment Smoking Patient Nicotine/Smoking Risk Factors Are:: Never smoked Dyslipidemia Patient Dyslipidemia Risk Factors Are:: Total Cholesterol, Triglycerides, HDL, LDL Recommendations Include:: Lipid profile provided, Reviewed NCEP/ATP guidelines, Therapeutic Lifestyle Change dietary guidelines Dyslipidemia Response Code:: Patient communicates acknowledgment Overweight/Obesity Patient Overweight/Obesity Risk Factors Are:: BMI Normal [24-29 & > 65 years old] Hypertension Recommendations Include:: Maintain BP <130/85, DASH dietary guidelines, Decrease/maintain normal body weight, Moderation of ETOH Hypertension:: Patient communicates acknowledgment Diabetes Patient Diabetes Risk Factors Are:: No documented hx of diabetes Sedentary Patient Sedentary Risk Factors Are:: Lack of regular exercise Recommendations Include:: Aerobic exercise 5-7 times/week for 20-30 minutes continuously, Discussed home walking program, Monitored Outpatient Cardiac Rehab Sedentary Response Code:: Patient communicates acknowledgment Stress Patient Stress Risk Factors Are:: Patient denies stress as a risk factor
--- NOTE | 2021-06-16 14:27 | EKG12_ITS ---
Test Reason : Blood Pressure : / mmHG Vent. Rate : 061 BPM Atrial Rate : 061 BPM P-R Int : 000 ms QRS Dur : 092 ms QT Int : 506 ms P-R-T Axes : 000 060 167 degrees QTc Int : 509 ms Atrial fibrillation with premature ventricular or aberrantly conducted complexes and with ventricular escape complexes ST & Marked T wave abnormality, consider anterolateral ischemia Prolonged QT Abnormal ECG Confirmed by RUTH PANTOJA, CLINTON ([id number]), assignment desk editor ENID ALFORD ([id number]) on 06/20/2021 10:55:43 AM Referred By: TESS Confirmed By:CLINTON MIRANDA MD
--- NOTE | 2021-06-16 14:50 | CASEMGMT ---
HARIKA CLEMENTS assessment: Face to Face with patient for initial transition planning/care coordination assessment. HARIKA CLEMENTS introduced self and role at [facility], pt voices understanding and consents to assessment. Pt is lying flat in bed s/p heart cath in no distress on room air. Pt is A/Ox4 and answers all questions appropriately. Pt's is also at bedside during assessment. Care providers, pharmacy, and demographics verified. Presentation: CP while listening to radio Admitting dx: NSTEMI PCP: Lee Specialists: Benjamin, cardio Preferred Pharmacy: [facility]-pt to be sent home on Brilinta and pt/ already provided Brilinta month free trial card. Insurance: [employer] [facility] Prescription Benefit: [facility] Living Will/HPOA: Pt states has LW/HPOA and is aware that they are not on file at [facility]. Pt states his , Hortensia Hauser, is HPOA. LNOK: Hortensia Hauser, ; Thanh Hauser, son Living Arrangements: Pt states lives with in 1 story home with basement garage and states no concerns at home. Pt states is independent with ADL's. Transportation: Pt states drives self and states no transportation concerns. DME/HHC: Pt states has the following DME but does not use: cane, walker, w/c, grab bars, and BSC. Pt states no need for any further DME. Pt states has had HHC in the past but has not been to SNF. Pt states no concerns with going home at time of discharge. Pt is retired. Pt states does not smoke cigarettes or drink ETOH. Pt states no further concerns/needs. CM to follow for any further questions/concerns/needs. Advised pt to ask for CM if any further questions/concerns/needs arise, voices understanding. Pt Goal: Home Plan: [place] HARIKA CLEMENTS
--- NOTE | 2021-06-16 15:40 | EKG12_ITS ---
Test Reason : Blood Pressure : / mmHG Vent. Rate : 063 BPM Atrial Rate : 220 BPM P-R Int : 000 ms QRS Dur : 092 ms QT Int : 558 ms P-R-T Axes : 000 057 164 degrees QTc Int : 571 ms Atrial fibrillation with premature ventricular or aberrantly conducted complexes and with ventricular escape complexes ST & Marked T wave abnormality, consider anterolateral ischemia Prolonged QT Abnormal ECG Confirmed by RUTH PANTOJA, CLINTON ([id number]), digital editor ENID ALFORD ([id number]) on 06/20/2021 10:55:07 AM Referred By: TESS Confirmed By:CLINTON MIRANDA MD
[2021-06-16 16:41] LABS: Hematocrit 42.1 % (40-54); Hemoglobin 13.2 g/dL (13.0-16.5); Mean Corp Hgb Conc 31.4 g/dL (32-36); Mean Corpuscular Hgb 32.8 pg (27.0-32.0); Mean Corpuscular Volume 104.5 fL (80-94); Mean Platelet Vol. 11.6 fl (6.2-12.0); POSITIVE COUNT YES; Platelet Count 80 K/mm3 (150-450); RBC Distribution Width CV 12.6 % (11.6-14.6); RBC Distribution Width SD 48.7 fl (35.1-43.9); Red Blood Count 4.03 M/mm3 (4.6-6.2); White Blood Count 7.7 K/mm3 (4.4-11.0)
[2021-06-16 16:45] LABS: Scan Indicated on CBC? Y/N YES- FLAGS NOTED
--- NOTE | 2021-06-16 16:58 | PN.CARD_ITS ---
Objective Data Vital Signs: Vital Signs Temp Pulse Resp BP Pulse Ox 98.1 F 68 12 143/72 H 97 06/16/21 15:00 06/16/21 16:54 06/16/21 16:54 06/16/21 16:54 06/16/21 16:54 Oxygen Flow Rate (L/min) 3 Oxygen Delivery Method Nasal Cannula Weight: 200 lb 6.4 oz Body Mass Index (BMI) 27.1 Intake & Output: Intake and Output for Last 24 Hours 06/14/21 06/15/21 06/16/21 23:59 23:59 23:59 Intake Total 623.32 / 635.32 248.70 / 248.70 Balance 623.32 / 635.32 248.70 / 248.70 Lab / Micro Data Result Diagrams: 06/16/21 16:30 06/16/21 03:00 Labs: Laboratory Results - last 24 hr 06/15/21 19:40: APTT 46.7 H 06/16/21 03:00: WBC 8.6, RBC 3.86 L, Hgb 12.6 L, Hct 40.1, MCV 103.9 H, MCH 32.6 H, MCHC 31.4 L, RDW Std Deviation 48.9 H, RDW Coeff of Parminder 12.8, Plt Count 98 L, MPV 11.6 06/16/21 03:00: Sodium 140, Potassium 4.4, Chloride 108 H, Carbon Dioxide 28.0, Anion Gap 4 L, BUN 20 H, Creatinine 0.88, Estim Creat Clear Calc 71.04, Est GFR (MDRD) Af Amer 107, Est GFR (MDRD) Non-Af 89, BUN/Creatinine Ratio 22.9 H, Glucose 139 H, Calcium 8.1 L, Magnesium 2.0, Total Bilirubin 1.10 H, AST 26, ALT 28, Alkaline Phosphatase 55, Total Protein 5.9 L, Albumin 2.8 L, Globulin 3.1, Albumin/Globulin Ratio 0.9, Triglycerides 65, Cholesterol 136, LDL Cholesterol 85, VLDL Cholesterol 13, HDL Cholesterol 38 L, TSH 0.50 06/16/21 03:00: Phosphorus 3.1 06/16/21 03:00: Hemoglobin A1c 5.5 06/16/21 03:00: PT 25.0 H, INR 2.4 06/16/21 03:00: APTT 75.5 H 06/16/21 09:18: PT 21.1 H, INR 1.9 06/16/21 16:30: WBC 7.7, RBC 4.03 L, Hgb 13.2, Hct 42.1, MCV 104.5 H, MCH 32.8 H , MCHC 31.4 L, RDW Std Deviation 48.7 H, RDW Coeff of Parminder 12.6, Plt Count 80 L, MPV 11.6 Cardiology Labs/Tests 06/15/21 19:40: APTT 46.7 H 06/16/21 03:00: WBC 8.6, RBC 3.86 L, Hgb 12.6 L, Hct 40.1, MCV 103.9 H, MCH 32.6 H, MCHC 31.4 L, Plt Count 98 L, MPV 11.6 06/16/21 03:00: Sodium 140, Potassium 4.4, Chloride 108 H, Carbon Dioxide 28.0, Anion Gap 4 L, BUN 20 H, Creatinine 0.88, Est GFR (MDRD) Af Amer 107, Est GFR (MDRD) Non-Af 89, BUN/Creatinine Ratio 22.9 H, Glucose 139 H, Calcium 8.1 L, Magnesium 2.0, Total Bilirubin 1.10 H, Triglycerides 65, Cholesterol 136, LDL Cholesterol 85, VLDL Cholesterol 13, HDL Cholesterol 38 L 06/16/21 03:00: Phosphorus 3.1 06/16/21 03:00: Hemoglobin A1c 5.5 06/16/21 03:00: PT 25.0 H, INR 2.4 06/16/21 03:00: APTT 75.5 H 06/16/21 09:18: PT 21.1 H, INR 1.9 06/16/21 16:30: WBC 7.7, RBC 4.03 L, Hgb 13.2, Hct 42.1, MCV 104.5 H, MCH 32.8 H , MCHC 31.4 L, Plt Count 80 L, MPV 11.6 Rhythm: EKG: ECHO: Stress Test: Cardiac Cath: PCI: CT Surgery: Holter monitor: EPS: PPM: CXR: Chest CT Scan: Assessment & Plan Assessment/Plan (1) NSTEMI, initial episode of care: (2) History of mitral valve replacement with bioprosthetic valve: (3) Essential hypertension: (4) Longstanding persistent atrial fibrillation: (5) Chest pain: (6) Hyperlipidemia: QUALIFIERS: Hyperlipidemia type: unspecified Qualified Code(s): E78.5 - Hyperlipidemia, unspecified (7) Cardiomyopathy: PLAN: * Pt underwent a heart cath, he did have stenting to his mid LAD * Since he is on coumadin, will start him on Plavix tomorrow, will continue with ASA * with his decreased EF will switch his metoprolol to coreg. He is allergic to lisinopril, if BP tolerates will consider losartan tomorrow * will plan on repeating echocardiogram in a few months to recheck LV function * Pt has been intolerant to statins
[2021-06-16 17:16] LABS: Differential Comment SCANNED
--- NOTE | 2021-06-16 20:29 | PN.HOSP_ITS ---
Subjective Subjective Patient was seen and examined today, he underwent a cardiac catheterization today and had an insertion of a drug-eluting stent in the LAD. Patient's Integrilin was stopped this afternoon due to his low platelet count, late this afternoon patient had some hematuria-at this time I have elected to observe the patient and reevaluate him concerning the hematuria. Objective Data Objective Data Vital Signs: Vital Signs Temp Pulse Resp BP Pulse Ox 98.1 F 83 12 143/72 H 94 06/16/21 15:00 06/16/21 18:00 06/16/21 18:00 06/16/21 17:23 06/16/21 18:00 Oxygen Flow Rate (L/min) 2 Oxygen Delivery Method Nasal Cannula Weight: 90.9 kg Body Mass Index (BMI) 27.1 Intake & Output: Intake and Output for Last 24 Hours 06/14/21 06/15/21 06/16/21 23:59 23:59 23:59 Intake Total 623.32 / 635.32 294.08 / 294.08 Balance 623.32 / 635.32 294.08 / 294.08 Lab / Micro Data Result Diagrams: 06/16/21 16:30 06/16/21 03:00 Labs: Laboratory Results - last 24 hr 06/15/21 19:40: APTT 46.7 H 06/16/21 03:00: WBC 8.6, RBC 3.86 L, Hgb 12.6 L, Hct 40.1, MCV 103.9 H, MCH 32.6 H, MCHC 31.4 L, RDW Std Deviation 48.9 H, RDW Coeff of Parminder 12.8, Plt Count 98 L, MPV 11.6 06/16/21 03:00: Sodium 140, Potassium 4.4, Chloride 108 H, Carbon Dioxide 28.0, Anion Gap 4 L, BUN 20 H, Creatinine 0.88, Estim Creat Clear Calc 71.04, Est GFR (MDRD) Af Amer 107, Est GFR (MDRD) Non-Af 89, BUN/Creatinine Ratio 22.9 H, Glucose 139 H, Calcium 8.1 L, Magnesium 2.0, Total Bilirubin 1.10 H, AST 26, ALT 28, Alkaline Phosphatase 55, Total Protein 5.9 L, Albumin 2.8 L, Globulin 3.1, Albumin/Globulin Ratio 0.9, Triglycerides 65, Cholesterol 136, LDL Cholesterol 85, VLDL Cholesterol 13, HDL Cholesterol 38 L, TSH 0.50 06/16/21 03:00: Phosphorus 3.1 06/16/21 03:00: Hemoglobin A1c 5.5 06/16/21 03:00: PT 25.0 H, INR 2.4 06/16/21 03:00: APTT 75.5 H 06/16/21 09:18: PT 21.1 H, INR 1.9 06/16/21 16:30: WBC 7.7, RBC 4.03 L, Hgb 13.2, Hct 42.1, MCV 104.5 H, MCH 32.8 H , MCHC 31.4 L, RDW Std Deviation 48.7 H, RDW Coeff of Parminder 12.6, Plt Count 80 L, MPV 11.6, Differential Comment SCANNED Micro: Microbiology 06/15/21 10:15 Nasal Secretion SARS-CoV-2 Antigen (Rapid) - Final Physical Exam Const alert, oriented x3, no apparent distress and healthy appearing General Appearance: cooperative, well kempt and well developed Orientation / Consciousness: awake, oriented to person, oriented to place and oriented to time HEENT normocephalic, head/scalp atraumatic, moist oral mucous membranes and oropharynx normal Head and Scalp: normocephalic Eyes PERRL, EOMs intact bilaterally and conjunctivae normal Neck nuchal rigidity, supple, no JVD, thyroid normal and no carotid bruits General: trachea midline Resp normal respiratory effort, no retractions, no use of accessory muscles and clear to auscultation bilaterally Auscultation: Negative for rales, rhonchi or wheezes Cardio S1 normal heart sound, S2 normal heart sound, no murmurs, no rub and no gallops Cardio Narrative: Heart rate and rhythm was irregular GI normal to inspection, nondistended, normoactive bowel sounds, soft to palpation, non-tender and non-distended Extremity no clubbing, cyanosis or edema Skin no rashes or lesions noted General Skin Exam: no breakdown Neuro oriented x3, CN's II-XII intact bilaterally, no focal motor deficits and no sensory deficits noted Sensorium / Orientation: awake and alert Speech: speech normal Psych thought process normal and affect normal Assessment & Plan Assessment/Plan (1) NSTEMI, initial episode of care: PLAN: 1. NSTEMI-again patient underwent insertion of a drug-eluting stent in the LAD today, he will need to resume Coumadin tomorrow, he will be on Brilinta and aspirin in the meantime. #2 occlusive coronary artery disease-status post insertion of drug-eluting stent LAD postop day 0-cardiology is participating in his care #3 hyperlipidemia #4 chronic atrial fibrillation #5 thrombocytopenia-again patient was taken off Integrilin, CBC will be monitored #6 mitral valve disease-patient has a bioprosthetic mitral valve #7 cardiomyopathy-probably ischemic in nature-patient's echocardiogram today showed an EF of 25 to 30%, patient's last echocardiogram performed here was in April 2021 and showed an EF of 60%. Charges/Coding Visit Charges Inpatient E&M: 86783 Subs Hosp L2
[2021-06-16] MEDS: Isosorbide Mononitrate 60 MG Tablet PO (21:39)
[2021-06-16] MEDS: Carvedilol 6.25 MG Tablet PO (21:40)
[2021-06-16] MEDS: Morphine 2 MG/ML Syringe IV (22:58)
[2021-06-17] VITALS (12 sets, daily range): BP systolic 119–125; BP diastolic 57–77; PULSE 79–89; RESP 16–20; TEMP 36.3–38.5; O2SAT 95–97
--- NOTE | 2021-06-17 04:42 | NURSING ---
06/16 2040: RAM CAR OPERATOR called this RN to inform of pt reporting that he fell. Pt said that he was getting tired of laying in the bed so he decided to sit up on the edge. Pt previously independent to sit on the edge of the bed and reposition himself. Per pt report, he sat up and then slid to the floor. Pt does not think he hit his head. No injuries noted, vital signs obtained and stable. Dr. Moraes notified of incident. Pt's also updated. Pt in bed resting, bed exit on. HARIKA Barker.
[2021-06-17 07:36] LABS: Hematocrit 37.7 % (40-54); Hemoglobin 12.1 g/dL (13.0-16.5); Mean Corp Hgb Conc 32.1 g/dL (32-36); Mean Corpuscular Hgb 33.2 pg (27.0-32.0); Mean Corpuscular Volume 103.6 fL (80-94); Mean Platelet Vol. 12.4 fl (6.2-12.0); POSITIVE COUNT YES; Platelet Count 86 K/mm3 (150-450); RBC Distribution Width CV 12.5 % (11.6-14.6); RBC Distribution Width SD 46.5 fl (35.1-43.9); Red Blood Count 3.64 M/mm3 (4.6-6.2); White Blood Count 8.3 K/mm3 (4.4-11.0)
[2021-06-17 07:56] LABS: ALB/GLOB Ratio 0.8 RATIO (0.9-2.4); AST(SGOT) 24 U/L (15-37); Alanine Aminotransfer ALT/SGPT 24 U/L (16-61); Albumin, Serum 2.5 g/dL (3.2-5.0); Alkaline Phosphatase 50 U/L (45-117); Anion Gap 5 (5-15); BUN 17 mg/dL (7-18); BUN/Creat Ratio 23.9 RATIO (10-20); Chloride 105 mmol/L (98-107); Creatinine, Serum 0.71 mg/dL (0.70-1.30); EST Glomerular Filtration Rate 113 mL/min (>60); Est Glom Filt Rate - Afr Amer 136 mL/min (>60); Estimated Creatinine Clearance 62.51 ml/min; Globulin 3.1 g/dL (2.2-4.2); Glucose 125 mg/dL (74-106); Protein, Total 5.6 g/dL (6.4-8.2); Sodium Level 137 mmol/L (136-145)
[2021-06-17 08:24] LABS: International Normalized Ratio 1.4; Prothrombin Time (Protime)PT. 16.6 SECONDS (11.7-14.9)
[2021-06-17] MEDS: Aspirin E.C. 81 MG Tablet PO (09:14)
[2021-06-17] MEDS: Isosorbide Mononitrate 60 MG Tablet PO (09:14)
[2021-06-17] MEDS: Carvedilol 6.25 MG Tablet PO ×2 (09:15→20:29)
--- NOTE | 2021-06-17 10:00 | EKG12_ITS ---
Test Reason : AM EKG Blood Pressure : / mmHG Vent. Rate : 082 BPM Atrial Rate : 141 BPM P-R Int : 000 ms QRS Dur : 088 ms QT Int : 488 ms P-R-T Axes : 000 066 162 degrees QTc Int : [address] & Marked T wave abnormality, consider anterolateral ischemia Prolonged QT Abnormal ECG When compared with ECG of 16-JUN-2021 15:40, MANUAL COMPARISON REQUIRED, DATA IS UNCONFIRMED Confirmed by RUTH PANTOJA, CLINTON ([id number]), news editor ENID ALFORD ([id number]) on 06/20/2021 10:47:53 AM Referred By: DR COLE Confirmed By:CLINTON MIRANDA MD
[2021-06-17] MEDS: TICAGRELOR 90 MG TABLET PO ×2 (12:08→20:29)
[2021-06-17] MEDS: 0.9% Saline Lock 10 ML Syringe IV (13:09)
[2021-06-17] MEDS: Furosemide 40 MG/4 ML Vial IV (13:09)
[2021-06-17] MEDS: Potassium Chloride Oral Tablet 20 MEQ PO (13:09)
--- NOTE | 2021-06-17 15:27 | PCM.PN.CARD ---
Subjective Subjective This patient seen evaluated bedside along with the nursing staff No symptoms of chest pain reported Had hematuria. Objective Data Vital Signs: Vital Signs Temp Pulse Resp BP Pulse Ox 101.3 F H 81 18 125/64 H 96 06/17/21 15:25 06/17/21 15:25 06/17/21 15:25 06/17/21 15:25 06/17/21 15:25 Oxygen Flow Rate (L/min) 2 Oxygen Delivery Method Nasal Cannula Weight: 200 lb 6.4 oz Body Mass Index (BMI) 27.1 Intake & Output: Intake and Output for Last 24 Hours 06/15/21 06/16/21 06/17/21 23:59 23:59 23:59 Intake Total 623.32 / 635.32 505.58 / 625.58 120 / 120 Output Total 1050 / 1050 Balance 623.32 / 635.32 505.58 / 625.58 -930 / -930 Lab / Micro Data Result Diagrams: 06/17/21 06:55 06/17/21 06:55 Labs: Laboratory Results - last 24 hr 06/16/21 16:30: WBC 7.7, RBC 4.03 L, Hgb 13.2, Hct 42.1, MCV 104.5 H, MCH 32.8 H, MCHC 31.4 L, RDW Std Deviation 48.7 H, RDW Coeff of Parminder 12.6, Plt Count 80 L, MPV 11.6, Differential Comment SCANNED 06/17/21 06:55: WBC 8.3, RBC 3.64 L, Hgb 12.1 L, Hct 37.7 L, MCV 103.6 H, MCH 33.2 H, MCHC 32.1, RDW Std Deviation 46.5 H, RDW Coeff of Parminder 12.5, Plt Count 86 L, MPV 12.4 H 06/17/21 06:55: Sodium 137, Potassium 4.0, Chloride 105, Carbon Dioxide 27.0, Anion Gap 5, BUN 17, Creatinine 0.71, Estim Creat Clear Calc 62.51, Est GFR (MDRD) Af Amer 136, Est GFR (MDRD) Non-Af 113, BUN/Creatinine Ratio 23.9 H, Glucose 125 H, Calcium 8.0 L, Total Bilirubin 1.60 H, AST 24, ALT 24, Alkaline Phosphatase 50, Total Protein 5.6 L, Albumin 2.5 L, Globulin 3.1, Albumin/Globulin Ratio 0.8 L 06/17/21 06:55: PT 16.6 H, INR 1.4 Cardiology Labs/Tests 06/16/21 16:30: WBC 7.7, RBC 4.03 L, Hgb 13.2, Hct 42.1, MCV 104.5 H, MCH 32.8 H, MCHC 31.4 L, Plt Count 80 L, MPV 11.6 06/17/21 06:55: WBC 8.3, RBC 3.64 L, Hgb 12.1 L, Hct 37.7 L, MCV 103.6 H, MCH 33.2 H, MCHC 32.1, Plt Count 86 L, MPV 12.4 H 06/17/21 06:55: Sodium 137, Potassium 4.0, Chloride 105, Carbon Dioxide 27.0, Anion Gap 5, BUN 17, Creatinine 0.71, Est GFR (MDRD) Af Amer 136, Est GFR (MDRD) Non-Af 113, BUN/Creatinine Ratio 23.9 H, Glucose 125 H, Calcium 8.0 L, Total Bilirubin 1.60 H 06/17/21 06:55: PT 16.6 H, INR 1.4 Rhythm: A. fib with controlled ventricular rate. Physical Exam Narrative Bedside examination Patient alert orientated Comfortable no symptoms of chest pain Cardiac telemetry showed underlying atrial fibrillation with controlled ventricular rate Cardiac exam S1-S2 is irregular there is no murmur no systolic or diastolic murmur Chest minimal bilateral basilar rales Abdomen soft Examination lower extremity no clubbing no cyanosis no lower extremity edema Central nervous system exam no focal neurological deficit. Assessment & Plan Assessment/Plan (1) Cardiomyopathy: (2) Current use of senior care anticoagulation: (3) History of mitral valve replacement with bioprosthetic valve: (4) Atherosclerosis of coronary artery of [place] heart without angina pectoris: QUALIFIERS: Coronary Disease-Associated Artery/Lesion type: [place] artery Qualified Code(s): I25.10 - Atherosclerotic heart disease of [place] coronary artery without angina pectoris (5) Atrial fibrillation, chronic: (6) NSTEMI, initial episode of care: PLAN: This patient underwent cardiac catheterization with PCI and stent of the mid LAD Patient had history of CAD with ALTMAN to LAD which was very sluggish with a slow flow and patency of the SVG graft to diagonal and nonobstructive large dominant RCA Patient also had paroxysmal atrial fibrillation He had a low platelet count around 80 and Integrilin discontinued Cardiac recommendation plan; We will continue medical treatment with dual antiplatelet therapy including Brilinta aspirin Patient has underlying paroxysmal atrial fibrillation and was not Coumadin is on hold because of hematuria Patient had severe LV systolic dysfunction with ejection fraction in the range of 25 to 30% will continue cardiac medication I discussed the cardiac care plan in detail with the patient, the , nursing staff and the medical team.
[2021-06-17] MEDS: Acetaminophen 325 MG Tablet 650 MG PO (15:38)
--- NOTE | 2021-06-17 20:11 | PN.HOSP_ITS ---
Subjective Subjective Patient was seen and examined today, he still having hematuria, I talked with cardiology about his care and cardiology recommended not starting the patient back on Coumadin at the present time. Unfortunately he will need aspirin and Brilinta however. I discussed his care with his who was in the room at the time of my examination. I talked to the patient about any reaction he may have had from quinapril, he does not remember the reaction but he denies any swelling in his throat or his tongue or having any breathing difficulties from quinapril. Patient also states that he had generalized fatigue with a statin, I discussed his need to go on a statin and an ZAIN inhibitor due to his reduced EF and coron armen artery disease, patient has agreed to try these medications again. I have decided to place him on lisinopril and Pravachol. Objective Data Objective Data Vital Signs: Vital Signs Temp Pulse Resp BP Pulse Ox 98.8 F 79 20 H 125/57 H 97 06/17/21 17:04 06/17/21 19:00 06/17/21 17:04 06/17/21 17:04 06/17/21 17:04 Oxygen Flow Rate (L/min) 2 Oxygen Delivery Method Nasal Cannula Weight: 90.9 kg Body Mass Index (BMI) 27.1 Intake & Output: Intake and Output for Last 24 Hours 06/15/21 06/16/21 06/17/21 23:59 23:59 23:59 Intake Total 623.32 / 635.32 505.58 / 625.58 120 / 120 Output Total 1050 / 1050 Balance 623.32 / 635.32 505.58 / 625.58 -930 / -930 Lab / Micro Data Result Diagrams: 06/17/21 06:55 06/17/21 06:55 Labs: Laboratory Results - last 24 hr 06/17/21 06:55: WBC 8.3, RBC 3.64 L, Hgb 12.1 L, Hct 37.7 L, MCV 103.6 H, MCH 33.2 H, MCHC 32.1, RDW Std Deviation 46.5 H, RDW Coeff of Parminder 12.5, Plt Count 86 L, MPV 12.4 H 06/17/21 06:55: Sodium 137, Potassium 4.0, Chloride 105, Carbon Dioxide 27.0, Anion Gap 5, BUN 17, Creatinine 0.71, Estim Creat Clear Calc 62.51, Est GFR (MDRD) Af Amer 136, Est GFR (MDRD) Non-Af 113, BUN/Creatinine Ratio 23.9 H, Glucose 125 H, Calcium 8.0 L, Total Bilirubin 1.60 H, AST 24, ALT 24, Alkaline Phosphatase 50, Total Protein 5.6 L, Albumin 2.5 L, Globulin 3.1, Albumin/Globulin Ratio 0.8 L 06/17/21 06:55: PT 16.6 H, INR 1.4 Micro: Microbiology 06/15/21 10:15 Nasal Secretion SARS-CoV-2 Antigen (Rapid) - Final Physical Exam Narrative alert, oriented x3, no apparent distress and healthy appearing General Appearance: cooperative, well kempt and well developed Orientation / Consciousness: awake, oriented to person, oriented to place and oriented to time HEENT normocephalic, head/scalp atraumatic, moist oral mucous membranes and oropharynx normal Head and Scalp: normocephalic Eyes PERRL, EOMs intact bilaterally and conjunctivae normal Neck nuchal rigidity, supple, no JVD, thyroid normal and no carotid bruits General: trachea midline Resp normal respiratory effort, no retractions, no use of accessory muscles and clear to auscultation bilaterally Auscultation: Negative for rales, rhonchi or wheezes Cardio S1 normal heart sound, S2 normal heart sound, no murmurs, no rub and no gallops Cardio Narrative: Heart rate and rhythm was irregular GI normal to inspection, nondistended, normoactive bowel sounds, soft to palpation, non-tender and non-distended Extremity no clubbing, cyanosis or edema Skin no rashes or lesions noted General Skin Exam: no breakdown Neuro oriented x3, CN's II-XII intact bilaterally, no focal motor deficits and no sensory deficits noted Sensorium / Orientation: awake and alert Speech: speech normal Psych thought process normal and affect normal Assessment & Plan Assessment/Plan (1) NSTEMI, initial episode of care: PLAN: 1. NSTEMI-again patient underwent insertion of a drug-eluting stent in the LAD yesterday, he is currently on Brilinta and aspirin, he will not resume his Coumadin at this time due to hematuria. #2 occlusive coronary artery disease-status post insertion of drug-eluting stent LAD postop day 1-cardiology is participating in his care #3 hyperlipidemia-patient is agreed to go on a statin, I placed him on Pravachol #4 chronic atrial fibrillation #5 thrombocytopenia- CBC will be monitored #6 mitral valve disease-patient has a bioprosthetic mitral valve #7 cardiomyopathy-probably ischemic in nature-patient's echocardiogram today showed an EF of 25 to 30%, patient's last echocardiogram performed here was in April 2021 and showed an EF of 60%. Patient has agreed to go on an ZAIN inhibitor, I placed him on lisinopril. #8 hematuria-etiology unclear at this point, we do not have urology coverage at this hospital at this time for the patient to be seen, if the hematuria worsens, he will have to be transferred to another hospital and I went over this with him and his . Charges/Coding Visit Charges Inpatient E&M: 04294 Subs Hosp L2
[2021-06-17] MEDS: Pravastatin 20 MG Tablet PO (20:29)
[2021-06-17] MEDS: Lisinopril 5 MG Tablet PO (20:29)
[2021-06-18] VITALS (7 sets, daily range): BP systolic 119–139; BP diastolic 54–79; PULSE 77–97; RESP 16–18; TEMP 36.7–36.9; O2SAT 95–96
[2021-06-18 05:38] LABS: Hematocrit 39.8 % (40-54); Hemoglobin 12.7 g/dL (13.0-16.5); Mean Corp Hgb Conc 31.9 g/dL (32-36); Mean Corpuscular Hgb 32.9 pg (27.0-32.0); Mean Corpuscular Volume 103.1 fL (80-94); Mean Platelet Vol. 12.1 fl (6.2-12.0); Platelet Count 103 K/mm3 (150-450); RBC Distribution Width CV 12.6 % (11.6-14.6); RBC Distribution Width SD 47.8 fl (35.1-43.9); Red Blood Count 3.86 M/mm3 (4.6-6.2); White Blood Count 9.1 K/mm3 (4.4-11.0)
[2021-06-18] MEDS: Aspirin E.C. 81 MG Tablet PO (08:48)
[2021-06-18] MEDS: Potassium Chloride Oral Tablet 20 MEQ PO (08:48)
[2021-06-18] MEDS: Carvedilol 6.25 MG Tablet PO (08:48)
[2021-06-18] MEDS: TICAGRELOR 90 MG TABLET PO (08:48)
[2021-06-18] MEDS: Isosorbide Mononitrate 60 MG Tablet PO (08:49)
[2021-06-18] MEDS: Furosemide 40 MG/4 ML Vial IV (08:49)
[2021-06-18] MEDS: 0.9% Saline Lock 10 ML Syringe IV (08:51)
[2021-06-18] MEDS: Lisinopril 5 MG Tablet PO (08:57)
--- NOTE | 2021-06-18 10:00 | EKG12_ITS ---
Test Reason : AM EKG Blood Pressure : / mmHG Vent. Rate : 074 BPM Atrial Rate : 026 BPM P-R Int : 000 ms QRS Dur : 094 ms QT Int : 458 ms P-R-T Axes : 000 069 164 degrees QTc Int : [address] & Marked T wave abnormality, consider anterolateral ischemia Prolonged QT Abnormal ECG When compared with ECG of 17-JUN-2021 05:30, MANUAL COMPARISON REQUIRED, DATA IS UNCONFIRMED Confirmed by RUTH PANTOJA, CLINTON ([id number]), managing editor ENID ALFORD ([id number]) on 06/20/2021 10:47:15 AM Referred By: KELSEY Confirmed By:CLINTON MIRANDA MD
--- NOTE | 2021-06-18 14:20 | PN.CARD_ITS ---
Subjective Subjective Patient seen and evaluated at bedside today, at bedside No symptoms of chest pain Hematuria resolved he had a clear urine. Objective Data Vital Signs: Vital Signs Temp Pulse Resp BP Pulse Ox 98.4 F 77 18 119/54 L 95 06/18/21 12:50 06/18/21 12:50 06/18/21 12:50 06/18/21 12:50 06/18/21 12:50 Oxygen Flow Rate (L/min) 2 Oxygen Delivery Method Room Air Weight: 200 lb 6.4 oz Body Mass Index (BMI) 27.1 Intake & Output: Intake and Output for Last 24 Hours 06/16/21 06/17/21 06/18/21 23:59 23:59 23:59 Intake Total 505.58 / 625.58 120 / 240 240 / 240 Output Total 1050 / 2100 2625 / 2625 Balance 505.58 / 625.58 -930 / -1860 -2385 / -2385 Lab / Micro Data Result Diagrams: 06/18/21 05:10 06/17/21 06:55 Labs: Laboratory Results - last 24 hr 06/18/21 05:10: WBC 9.1, RBC 3.86 L, Hgb 12.7 L, Hct 39.8 L, MCV 103.1 H, MCH 32.9 H, MCHC 31.9 L, RDW Std Deviation 47.8 H, RDW Coeff of Parminder 12.6, Plt Count 103 L, MPV 12.1 H Cardiology Labs/Tests 06/18/21 05:10: WBC 9.1, RBC 3.86 L, Hgb 12.7 L, Hct 39.8 L, MCV 103.1 H, MCH 32.9 H, MCHC 31.9 L, Plt Count 103 L, MPV 12.1 H Rhythm: A. fib with controlled ventricular rate Physical Exam Narrative Patient alert orientated x3 Not in acute distress quality assurance monitor final telemetry showed normal sinus rhythm Patient been stable hemodynamically Cardiovascular examination S1-S2 regular, no murmur no systolic or diastolic murmur Chest examination clear to auscultation Examination abdomen soft Examination lower extremity no clubbing no cyanosis no lower extremity edema. Assessment & Plan Assessment/Plan (1) Longstanding persistent atrial fibrillation: (2) Essential hypertension: (3) History of mitral valve replacement with bioprosthetic valve: (4) Aortocoronary bypass status: PLAN: Patient has non-STEMI/CAD/CABG Has severe LV systolic dysfunction Cardiac catheterization performed this admission with a PCI of [place] LAD using drug-eluting stent Remained stable clinically Also patient had persistent atrial fibrillation and was on anticoagulation with Coumadin which was on hold due to hematuria Hematuria resolved Cardiac recommendation plan; 1. I discussed with the medical team, nursing staff, patient and To continue on DAPT/dual antiplatelet therapy with Brilinta aspirin 2. To resume Coumadin in addition to current medical treatment 3. To follow-up with the primary tax revenue officer Dr. Alexander to discuss further cardiac care plan and recommendation
--- NOTE | 2021-06-18 15:03 | DCINST_ITS ---
Discharge Instructions Diet Discharge Diet: No restrictions Activity Discharge Activity: Return to Normal Activity and [address] Drive Weight Bearing Status: Full weight bearing Lifting Restrictions: do not lift more than 5 pounds until you see your veterinary milk specialist Dressing / Incision Call your doctor if your incision/area has: Sudden Increased Bleeding, Increased Pain/ Swelling, Increased Redness and Foul Smelling Discharge Call your doctor if you observe: Fever of 101 or Higher Follow Up Care Test Results: Test results from this visit will be discussed in further detail at your follow-up appointment, if applicable. Discharge Plan Admission Admit Date/Time: 06/15/21 10:15 Primary Reason for Your Visit: acute [place] Attending Provider: Rey Langston Primary Care Provider: Phoenix Howard Consulting Providers: Kenney Kelley Instructions Patient Instructions: ED Chest Pain, Noncardiac Additional Instructions / Restrictions: Go to the emergency room if you see severe bleeding in the urine Discharge Orders/Prescriptions Prescriptions: New furosemide 40 mg Tablet 40 mg PO DAILY Qty: 30 RF: 0 acetaminophen [Tylenol] 325 mg Tablet 650 mg PO Q6H PRN PRN (Reason: Pain Score 1-10/Temp > 100.7 F) Qty: 1 RF: 0 carvedilol 6.25 mg Tablet 6.25 mg PO BID Qty: 60 RF: 0 aspirin 81 mg Tablet,Delayed Release (Dr/Ec) 81 mg PO DAILYCM Qty: 0 RF: 0 isosorbide mononitrate 60 mg Tablet Extended Release 24 Hr 60 mg PO DAILY Qty: 30 RF: 0 potassium chloride [Klor-Con M20] 20 mEq Tablet,Er Particles/Crystals 20 meq PO DAILYCM Qty: 30 RF: 0 pravastatin 20 mg Tablet 20 mg PO DAILY Qty: 30 RF: 0 lisinopril 5 mg Tablet 5 mg PO DAILY Qty: 30 RF: 0 Brilinta 90 mg Tablet 90 mg PO BID Qty: 60 RF: 0 Continued warfarin 5 mg tablet 5 mg PO RF: 0 warfarin 1 mg tablet 6 mg PO RF: 0 Discontinued metoprolol tartrate 50 MG tablet 50 mg PO BID RF: 0 Referrals / Follow Up: Phoenix Howard MD [Primary Care Provider] - See Referral Note (On Saturday or Saturday of this week, you will need a repeat urinalysis performed, you may need to be referred to a urologist) Moodispaw,Denzel, MD [STAFF PHYSICIAN] - See Referral Note (Call Dr. Alexander's office to arrange for [id number] the office this Saturday and make an appointment for follow-up, you will need your INR rechecked this Saturday or ) Disposition Disposition (needs filled in before D/C Order can be placed): Home, Self Care
--- NOTE | 2021-06-18 21:10 | PCM.DC.SUM ---
Providers Date of Admission: 06/15/21 Date of Discharge: 06/18/21 Primary Care Physician: Dr. Phoenix Howard MD Consultations 06/15/21 11:10 Consult: Cardiology Routine Consulting Provider: Kenney Kelley Reason for Consult: NSTEMI EMERGENT Consult: No MD Notified: Yes Date Notified: 06/15/21 Time Notified: 10:11 Method of Notification: Verbal Reason For Visit: NSTEMI Diagnosis Discharge Diagnosis (1) Longstanding persistent atrial fibrillation: Status: Chronic Code(s): I48.11 - Longstanding persistent atrial fibrillation (2) Essential hypertension: Status: Chronic Code(s): I10 - Essential (primary) hypertension (3) History of mitral valve replacement with bioprosthetic valve: Status: Resolved Code(s): Z95.3 - Presence of xenogenic heart valve (4) Aortocoronary bypass status: Status: Resolved Code(s): Z95.1 - Presence of aortocoronary bypass graft Plan: Final diagnosis: #1 [id number] II MO #2 occlusive coronary artery disease #3 hyperlipidemia #4 chronic atrial fibrillation #5 thrombocytopenia #6 mitral valve disease #7 ischemic cardiomyopathy #8 hematuria-etiology unclear Medications at Discharge Home Medications warfarin 5 mg PO FRSA 06/15/21 warfarin 6 mg PO WETH 06/15/21 acetaminophen [Tylenol] 650 mg PO Q6H PRN PRN #1 tab 06/18/21 aspirin 81 mg PO DAILYCM #0 tab 06/18/21 carvedilol 6.25 mg PO BID #60 tab 06/18/21 furosemide 40 mg PO DAILY #30 tab 06/18/21 isosorbide mononitrate 60 mg PO DAILY #30 tab 06/18/21 lisinopril 5 mg PO DAILY #30 tab 06/18/21 potassium chloride [Klor-Con M20] 20 meq PO DAILYCM #30 tab 06/18/21 pravastatin 20 mg PO DAILY #30 tab 06/18/21 ticagrelor [Brilinta] 90 mg PO BID #60 tab 06/18/21 Hospital Course Operations None Procedures 2-D Echocardiogram and Cardiac catheterization (With VICKY placement in LAD) Summary of Care Provided Minutes Spent on Discharge: 34 Hospital Course: This 81-year-old white male was seen in the emergency room at [facility] with chief complaint of chest pain, work-up in the emergency room included an EKG which showed the patient to be in atrial fib which was a chronic rhythm for the patient, no ST-T wave elevation was noted, labs revealed a normal troponin. Patient was admitted to PCU, subsequent troponins elevated indicating a non-STEMI, patient was seen in consultation by cardiology, his Coumadin was held and he was given vitamin K so that a cardiac catheterization could be performed. Cardiac catheterization revealed occlusive coronary artery disease and a KATHI was inserted in the LAD. Postop the patient had problems with hematuria for approximately 48 hours, his Coumadin was not resumed during his hospitalization and the hematuria resolved spontaneously. On 06/18/21, patient was seen and examined: On examination he appeared in good health and spirits. Vital signs as documented. Skin warm and dry and without overt rashes. Neck without JVD, neck was supple, trachea midline, thyroid was normal. Lungs clear bilaterally, normal air movement was noted. Heart exam notable for irregular rhythm, normal sounds and absence of murmurs, rubs or gallops. Abdomen unremarkable and without evidence of organomegaly, masses, or abdominal aortic enlargement. Bowel sounds are present, abdomen is not distended. Extremities nonedematous, no cyanosis was noted, no clubbing was noted. Neuro: Cranial nerves II through XII are grossly intact, no focal motor deficits were noted, sensation to light touch and pinprick intact, motor exam 5/5 throughout. Psych: Patient is alert and oriented x3, he does not appear anxious or depressed, he does not appear agitated. Patient appears stable for discharge on 06/18/2021. Weight / BMI Weight Weight: 90.9 kg Body Mass Index (BMI) 27.1 ABG / Lab / Microbiology Data Result Diagrams: 06/18/21 05:10 06/17/21 06:55 Laboratory: Laboratory Results - last 24 hr 06/18/21 05:10: WBC 9.1, RBC 3.86 L, Hgb 12.7 L, Hct 39.8 L, MCV 103.1 H, MCH 32.9 H, MCHC 31.9 L, RDW Std Deviation 47.8 H, RDW Coeff of Parminder 12.6, Plt Count 103 L, MPV 12.1 H Microbiology: Microbiology 06/15/21 10:15 Nasal Secretion SARS-CoV-2 Antigen (Rapid) - Final D/C Instructions Discharge Diet: No restrictions Weight Bearing Status: Full weight bearing Call your doctor if your incision/area has: Sudden Increased Bleeding, Increased Pain/ Swelling, Increased Redness and Foul Smelling Discharge Call your doctor if you observe: Fever of 101 or Higher Meaningful Use Info Meaningful Use Diagnoses (Choose all that apply): AMI AMI/Post PCI/Angioplasty Aspirin given w/in 24hrs of arrival?: Yes ASA at discharge?: Yes Antiplatelet Therapy at Discharge:: Yes Statins at discharge?: Yes [place]/ARB at discharge?: Yes Beta Martha at discharge?: Yes Done w/ Acute MO measure.: Yes Documented LVEF (%): 30 Discharge Plan Admission Admit Date/Time: 06/15/21 10:15 Primary Reason for Your Visit: acute [place] Attending Provider: Rey Langston Primary Care Provider: Phoenix Howard Consulting Providers: Kenney Kelley Instructions Patient Instructions: ED Chest Pain, Noncardiac Additional Instructions / Restrictions: Patient Problems: Altered Health Status related to Hospitalization Patient Goals: *Optimal Level of Health *Keep Appointments *Medication Compliance *Remain Safe Go to the emergency room if you see severe bleeding in the urine Discharge Orders/Prescriptions Prescriptions: New furosemide 40 mg Tablet 40 mg PO DAILY Qty: 30 RF: 0 acetaminophen [Tylenol] 325 mg Tablet 650 mg PO Q6H PRN PRN (Reason: Pain Score 1-10/Temp > 100.7 F) Qty: 1 RF: 0 carvedilol 6.25 mg Tablet 6.25 mg PO BID Qty: 60 RF: 0 aspirin 81 mg Tablet,Delayed Release (Dr/Ec) 81 mg PO DAILYCM Qty: 0 RF: 0 isosorbide mononitrate 60 mg Tablet Extended Release 24 Hr 60 mg PO DAILY Qty: 30 RF: 0 potassium chloride [Klor-Con M20] 20 mEq Tablet,Er Particles/Crystals 20 meq PO DAILYCM Qty: 30 RF: 0 pravastatin 20 mg Tablet 20 mg PO DAILY Qty: 30 RF: 0 lisinopril 5 mg Tablet 5 mg PO DAILY Qty: 30 RF: 0 Brilinta 90 mg Tablet 90 mg PO BID Qty: 60 RF: 0 Continued warfarin 5 mg tablet 5 mg PO RF: 0 warfarin 1 mg tablet 6 mg PO RF: 0 Discontinued metoprolol tartrate 50 MG tablet 50 mg PO BID RF: 0 Referrals / Follow Up: Phoenix Howard MD [Primary Care Provider] - See Referral Note (On Saturday or Saturday of this week, you will need a repeat urinalysis performed, you may need to be referred to a urologist) Denzel Alexander MD [STAFF PHYSICIAN] - See Referral Note (Call Dr. Alexander's office to arrange for [id number] the office this Saturday and make an appointment for follow-up, you will need your INR rechecked this Saturday or ) Disposition Disposition (needs filled in before D/C Order can be placed): Home, Self Care Charges/Coding Visit Charges Inpatient E&M: 74312 Disch Hosp
--- NOTE | 2021-06-20 12:18 | CASEMGMT ---
HARIKA CLEMENTS Discharge Follow-up Phone Call: CHERYL: Dyana Strata: 3 Call Date: 06/20/21 Discharge Date: 06/18/21 Time of Call: 1040 Admitting Diagnosis: NSTEMI This HARIKA CLEMENTS contacted pt via phone for discharge follow-up. Pt states he is feeling better today but c/o pain in his right hip, shoulder and back. States he did see his PCP yesterday and was instructed to continue to take the acetaminophen three times a day. Pt states he was taking it only twice daily but has increased to every 6 hours. Pt states this does help relieve his pain. Pt states he obtained his prescriptions and is taking them as directed. Denied any questions regarding his medications or his discharge instructions. Pt states he obtained a follow-up appointment with Dr. Alexander on 07/03. Noted pt to be SOB during the conversation. Pt states he feels he is short of breath due to his pain. Pt denied any swelling and states he is weighing himself regularly. Pt denies any weight gain and states he has lost 4 pounds since being admitted to the hospital. Pt states he has an IS which plans to begin using. Instructed pt to contact his PCP or Dr. Alexander if his SOB or pain does not improve. Pt expressed understanding. No further questions or concerns expressed. Sylwia Pandey RN CM
== END 2021-06-18 16:29 | disposition home or self-care (01) | DRG 246 ==
LOC: ED 10:22 → PCU 10:30
PROVIDERS: Internal Medicine Cardiovascular Disease; Internal Medicine Interventional Cardiology; Physician Assistant Medical; Admitting Provider Internal Medicine; Emergency Provider Emergency Medicine; PCP Family Medicine; Visit Provider Internal Medicine
DX: I25.10 Atherosclerotic heart disease of native coronary artery without angina pectoris (principal); I21.A1 Myocardial infarction type 2; I48.11 Longstanding persistent atrial fibrillation; I47.2 Ventricular tachycardia; I10 Essential (primary) hypertension; I25.5 Ischemic cardiomyopathy; R31.9 Hematuria, unspecified; I35.9 Nonrheumatic aortic valve disorder, unspecified; I34.9 Nonrheumatic mitral valve disorder, unspecified; E78.5 Hyperlipidemia, unspecified; D69.6 Thrombocytopenia, unspecified; I77.810 Thoracic aortic ectasia; Z95.1 Presence of aortocoronary bypass graft; Z95.3 Presence of xenogenic heart valve; Z86.711 Personal history of pulmonary embolism; Z79.01 Long term (current) use of anticoagulants; Z79.899 Other long term (current) drug therapy
CPT/HCPCS: 36415; 71045; 80048; 80053; 80061; 83036; 83735; 84100; 84443; 84484; 85025; 85027; 85610; 85730; 87426; 92928; 93005; 93308; 93455; 94762; 99152; 99153; 99251; 99285; C1874; J7030; Q9967; A4216; C1725; C1760; C1769; C1887; C1894; C9600; G0463; J1327; J1940; J2405; J3490

== ENCOUNTER → 2021-06-30 11:27 | Outpatient (CLI) | payer MEDICARE, SELFPAY ==
[2021-06-30 11:50] LABS: Absolute Lymphocyte Count 1.17 X10^3/uL (0.83-4.51); Absolute Neutrophil Count 6.5 X10^3/uL (2.0-7.7); Basophil# 0.03 X10^3/uL; Basophil% 0.3 % (0-1); Eosinophil# 0.09 X10^3/uL; Hematocrit 44.6 % (40-54); Lymphocyte # 1.17 X10^3/ul (0.83-4.51); Lymphocyte % 13.6 % (19-41); Mean Corp Hgb Conc 31.4 g/dL (32-36); Mean Corpuscular Hgb 32.6 pg (27.0-32.0); Mean Platelet Vol. 10.5 fl (6.2-12.0); Monocyte# 0.74 X10^3/uL; Monocyte% 8.6 % (0-10); NRBC Flagged by Analyzer 0 % (0-5); Neutrophil % 75.9 % (47-70); Platelet Count 308 K/mm3 (150-450); RBC Distribution Width CV 12.3 % (11.6-14.6); RBC Distribution Width SD 47.6 fl (35.1-43.9); Red Blood Count 4.29 M/mm3 (4.6-6.2); White Blood Count 8.6 K/mm3 (4.4-11.0)
[2021-06-30 12:46] LABS: Anion Gap 3 (5-15); BUN 23 mg/dL (7-18); BUN/Creat Ratio 22.8 RATIO (10-20); Calcium,Total 9.2 mg/dL (8.5-10.1); Chloride 104 mmol/L (98-107); Creatinine, Serum 1.01 mg/dL (0.70-1.30); EST Glomerular Filtration Rate 75 mL/min (>60); Est Glom Filt Rate - Afr Amer 91 mL/min (>60); Glucose 127 mg/dL (74-106); Potassium 4.5 mmol/L (3.5-5.1); Sodium Level 137 mmol/L (136-145)
== END ==
PROVIDERS: PCP Family Medicine; Referring Provider Physician Assistant Medical; Visit Provider Physician Assistant Medical
DX: I10 Essential (primary) hypertension (principal); I42.9 Cardiomyopathy, unspecified; I48.20 Chronic atrial fibrillation, unspecified; R53.83 Other fatigue; Z95.3 Presence of xenogenic heart valve; Z95.5 Presence of coronary angioplasty implant and graft
CPT/HCPCS: 36415; 80048; 85025

== ENCOUNTER 2021-07-27 11:49 | Outpatient (RCR) | payer MEDICARE, SELFPAY ==
[2021-06-07 01:09] VITALS: BMI 27.2
[2021-07-27 14:42] LABS: INR Fingerstick 2.9
== END 2021-08-06 05:18 | disposition home or self-care (01) ==
LOC: LAB 11:49
PROVIDERS: Family Provider Family Medicine; PCP Family Medicine; Referring Provider Internal Medicine Cardiovascular Disease; Visit Provider Internal Medicine Cardiovascular Disease
DX: I48.11 Longstanding persistent atrial fibrillation (principal); Z79.01 Long term (current) use of anticoagulants
CPT/HCPCS: 36416; 85610

== ENCOUNTER → 2021-08-03 08:16 | Outpatient (CLI) | payer MEDICARE, SELFPAY ==
--- NOTE | 2021-08-03 08:18 | CT_ITS ---
STUDY: CT ABDOMEN AND PELVIS WITHOUT CONTRAST REASON FOR EXAM: Male, 81 years old. GROSS HEMATURIA RADIATION DOSAGE (If Supplied By Facility): CTDIvol = ( 11.63 ) mGy, DLP = ( 572.36 ) mGycm TECHNIQUE: Transaxial images were obtained from the dome of the diaphragm to the symphysis pubis without oral contrast, and without intravenous contrast. Sagittal and coronal images were reconstructed. Individualized dose optimization techniques were used for this CT. COMPARISON: Comparison is made with prior study dated 04/11/2015. FINDINGS: Minimal linear scarring at the left lung base. Coronary artery calcification. Status post mitral valve replacement. Normal liver. There are multiple tiny gallstones. Normal spleen. Normal pancreas. Normal bilateral adrenal glands. Punctate nonobstructive calculus in the lower pole calyx of the right kidney. There is a 2.9 cm x 3.3 cm cyst in the medial midportion of the left kidney. There is a small hiatal hernia. Normal small intestine. There are multiple colonic diverticula consistent with diverticulosis. The appendix is visualized and appears normal. There is diffuse atherosclerotic calcification of the abdominal aorta and its major visceral branches, without a demonstrated aneurysm. Normal inferior vena cava. Normal retroperitoneum. The bladder is contracted. Diffuse bladder wall thickening. I cannot exclude a bladder mass. There is enlargement of the prostate gland. The prostate measures 5 cm x 5.2 cm. Calcifications are seen within. There is a small umbilical hernia containing fat. There are diffuse degenerative changes of the visualized lumbar spine. Approximately 50% loss of height of the superior endplate of the L2 vertebrae. CT/Abdomen/Pelvis without Cont IMPRESSION: The urinary bladder is not distended. Findings suggestive of a polypoid lesion within the urinary bladder. Endoscopic correlation is recommended. Electronically Signed: Duarte Saini MD at 13:19 EDT , Service support ,
== END ==
PROVIDERS: PCP Family Medicine; Referring Provider Urology; Visit Provider Urology
DX: R31.0 Gross hematuria (principal)
CPT/HCPCS: 74176

== ENCOUNTER → 2021-08-28 | Outpatient (CLI) | payer MEDICARE, SELFPAY ==
--- NOTE | 2021-08-28 | CYSPIN_PTH ---
PATIENT: PARK BEAUCHAMP LOC: [facility] U#:[id number] AGE/SX: 81/M ROOM: RE08/28/[address]: Dr. Marcelino Lugo MD : 1940 BED: DIS: 08/28/2021 SPEC #: [id number] RECD: 08/29/21 09:06 STATUS: HALEY REMk #: [id number] DEEPTI: 08/28/21 00:[address]: Marcelino Lugo DEPT: CYTOLOGY RECD BY: Joe Mar ENTERED: 08/29/21 09:07 SP TYPE: CYSPIN FL OTHR DR: Dr. Phoenix Howard MD Tissues: Urine Procedures: Pap Stain (control) Special Stain Group II Cytospin Fluid HEADER OPERATION: Not noted PRE-OP DIAGNOSIS: BPH TISSUE SUBMITTED: Urine for cytology DIAGNOSIS CYTOLOGY Urine for cytology (cytospin): Negative for malignant cells. Acute inflammation. See comment. SJ:oh 08/29/2021 COMMENT Numerous crystals are also noted. Clinical correlation and appropriate follow up are necessary. CYTOLOGY STUDY Slides are reviewed. CYTOLOGY GROSS Received is 2 ml of yellow cloudy fluid labeled with the patient's name and and designated per the requisition as urine. Submitted for cytology preparation. / oh 08/29/2021 TC:2 CPT: 32337
[2021-08-28 17:07] LABS: Cytology, Body Fluid / CSF SEE PATHOLOGY REPORT
== END | disposition home or self-care (01) ==
LOC: LABSPEC 16:39
PROVIDERS: PCP Family Medicine; Referring Provider Urology; Visit Provider Urology
DX: N40.0 Benign prostatic hyperplasia without lower urinary tract symptoms (principal)
CPT/HCPCS: 88108; 88313

== ENCOUNTER 2021-09-05 12:23 | Outpatient (RCR) | payer MEDICARE, SELFPAY ==
[2021-08-06 05:18] VITALS: BMI 27.2
[2021-09-05 13:15] LABS: INR Fingerstick 2.4; Prothrombin Time Fingerstick 26.5 SEC (11.9-14.4)
== END 2021-09-05 18:00 | disposition home or self-care (01) ==
LOC: LAB 12:23
PROVIDERS: Family Provider Family Medicine; PCP Family Medicine; Referring Provider Internal Medicine Cardiovascular Disease; Visit Provider Internal Medicine Cardiovascular Disease
DX: I48.11 Longstanding persistent atrial fibrillation (principal); Z79.01 Long term (current) use of anticoagulants
CPT/HCPCS: 36416; 85610

== ENCOUNTER → 2021-10-02 12:42 | Outpatient (CLI) | payer MEDICARE, SELFPAY ==
--- NOTE | 2021-10-02 12:43 | ECHOL_ITS ---
Reason For Study: CHF Procedure This was a limited 2D transthoracic echocardiogram. The study was technically difficult. Limited views were obtained. Exam performed in department. Left Ventricle Normal LV size. Segmental dysfunction with preserved ejection fraction (see wall motion). The estimated ejection fraction is 55 %. Post operative septal motion. Diastolic function is indeterminate. Mid-inferoseptal : Hypokinetic. Mid-anteroseptal : Hypokinetic. Right Ventricle Normal RV size. Normal systolic function. Atria The left atrium is moderately enlarged. The right atrium is moderately enlarged. Mitral Valve Stable appearing bioprosthetic mitral valve apparatus. Tricuspid Valve Normal tricuspid valve. Aortic Valve Trisinus/trileaflet aortic valve. Mild focal aortic valve calcification. Pulmonic Valve The pulmonic valve is not well visualized. Great Vessels Mildly dilated aortic root. Pericardium/Pleural No pericardial effusion. MMode/2D Measurements & Calculations LVIDd: 5.5 cm IVSd: 1.2 cm Ao root diam: 4.3 cm LVIDs: 4.2 cm LVPWd: 1.2 cm LA dimension: 5.8 cm RVDd: 4.5 cm FS: 23.3 % LAV(MOD-bp): 132.6 ml LA A4 area: 30.0 cm2 RA A4 area: 33.9 cm2 LAV(MOD-bp) Indexed: 63.6 ml/m2 LAV(MOD-sp2): 145.1 ml LAV(MOD-sp4): 107.8 ml ECHO/Echo, Limited Study Interpretation Summary The study was technically difficult. Limited views were obtained. Segmental dysfunction with preserved ejection fraction (see wall motion). The estimated ejection fraction is 55 %. Post operative septal motion. The left atrium is moderately enlarged. The right atrium is moderately enlarged. Stable appearing bioprosthetic mitral valve apparatus. Mild focal aortic valve calcification. Mildly dilated aortic root. Diastolic function is indeterminate. Ordering Physician: Venkatesh Thompson Referring Physician: Phoenix Howard Performed By: Elvia Chandler, ANIKET, RVT
== END ==
PROVIDERS: PCP Family Medicine; Referring Provider Nurse Practitioner Family; Visit Provider Nurse Practitioner Family
DX: I25.10 Atherosclerotic heart disease of native coronary artery without angina pectoris (principal); I48.20 Chronic atrial fibrillation, unspecified; E78.5 Hyperlipidemia, unspecified; Z95.3 Presence of xenogenic heart valve; I10 Essential (primary) hypertension; I42.9 Cardiomyopathy, unspecified; I77.810 Thoracic aortic ectasia; Z95.5 Presence of coronary angioplasty implant and graft
CPT/HCPCS: 93308

== ENCOUNTER 2021-10-13 13:27 | Outpatient (RCR) | payer MEDICARE, SELFPAY ==
[2021-09-06 03:53] VITALS: BMI 27.2
[2021-10-13 13:41] LABS: INR Fingerstick 2.2; Prothrombin Time Fingerstick 26.1 SEC (11.9-14.4)
== END 2021-11-06 18:00 | disposition home or self-care (01) ==
LOC: LAB 13:27
PROVIDERS: Family Provider Family Medicine; PCP Family Medicine; Referring Provider Internal Medicine Cardiovascular Disease; Visit Provider Internal Medicine Cardiovascular Disease
DX: I48.11 Longstanding persistent atrial fibrillation (principal); Z79.01 Long term (current) use of anticoagulants
CPT/HCPCS: 36416; 85610

== ENCOUNTER 2021-11-16 10:29 | Outpatient (RCR) | payer MEDICARE, SELFPAY ==
[2021-11-07 02:28] VITALS: BMI 27.2
[2021-11-16 10:41] LABS: INR Fingerstick 2.3; Prothrombin Time Fingerstick 26.8 SEC (11.9-14.4)
== END 2021-11-16 23:59 | disposition home or self-care (01) ==
LOC: LAB 10:29
PROVIDERS: Family Provider Family Medicine; PCP Family Medicine; Referring Provider Internal Medicine Cardiovascular Disease; Visit Provider Internal Medicine Cardiovascular Disease
DX: I48.11 Longstanding persistent atrial fibrillation (principal); Z79.01 Long term (current) use of anticoagulants
CPT/HCPCS: 36416; 85610

== ENCOUNTER 2022-01-26 12:23 | Outpatient (RCR) | payer MEDICARE, SELFPAY ==
[2021-12-05 10:33] VITALS: BMI 27.2
[2022-01-11 10:10] LABS: INR Fingerstick 1.8; Prothrombin Time Fingerstick 21.5 SEC (11.7-14.9)
[2022-01-26 12:30] LABS: INR Fingerstick 1.7; Prothrombin Time Fingerstick 20.8 SEC (11.7-14.9)
== END 2022-01-26 18:00 | disposition home or self-care (01) ==
LOC: LAB 12:23
PROVIDERS: Family Provider Family Medicine; PCP Family Medicine; Referring Provider Internal Medicine Cardiovascular Disease; Visit Provider Internal Medicine Cardiovascular Disease
DX: I48.11 Longstanding persistent atrial fibrillation (principal); Z79.01 Long term (current) use of anticoagulants
CPT/HCPCS: 36416; 85610

== ENCOUNTER 2022-02-08 13:30 | Outpatient (RCR) | payer MEDICARE, SELFPAY ==
[2022-02-04 04:35] VITALS: BMI 27.2
[2022-02-08 13:40] LABS: INR Fingerstick 2.2; Prothrombin Time Fingerstick 25.6 SEC (11.7-14.9)
== END 2022-02-08 18:00 | disposition home or self-care (01) ==
LOC: LAB 13:30
PROVIDERS: Family Provider Family Medicine; PCP Family Medicine; Referring Provider Internal Medicine Cardiovascular Disease; Visit Provider Internal Medicine Cardiovascular Disease
DX: I48.11 Longstanding persistent atrial fibrillation (principal); Z79.01 Long term (current) use of anticoagulants
CPT/HCPCS: 36416; 85610

== ENCOUNTER 2022-03-08 10:37 | Outpatient (RCR) | payer MEDICARE, SELFPAY ==
[2022-03-06 21:31] VITALS: BMI 27.2
[2022-03-08 10:55] LABS: INR Fingerstick 2.2; Prothrombin Time Fingerstick 25.4 SEC (11.7-14.9)
== END 2022-03-08 23:59 | disposition home or self-care (01) ==
LOC: LAB 10:37
PROVIDERS: Family Provider Family Medicine; PCP Family Medicine; Referring Provider Internal Medicine Cardiovascular Disease; Visit Provider Internal Medicine Cardiovascular Disease
DX: I48.11 Longstanding persistent atrial fibrillation (principal); Z79.01 Long term (current) use of anticoagulants
CPT/HCPCS: 36416; 85610

== ENCOUNTER 2022-04-16 12:34 | Outpatient (RCR) | payer MEDICARE, SELFPAY ==
[2022-04-06 07:50] VITALS: BMI 27.2
[2022-04-16 12:45] LABS: Prothrombin Time Fingerstick 23.3 SEC (11.7-14.9)
== END 2022-05-06 03:14 | disposition home or self-care (01) ==
LOC: LAB 12:34
PROVIDERS: Family Provider Family Medicine; PCP Family Medicine; Referring Provider Internal Medicine Cardiovascular Disease; Visit Provider Internal Medicine Cardiovascular Disease
DX: I48.11 Longstanding persistent atrial fibrillation (principal); Z79.01 Long term (current) use of anticoagulants
CPT/HCPCS: 36416; 85610

== ENCOUNTER 2022-05-15 10:58 | Outpatient (RCR) | payer MEDICARE, SELFPAY ==
[2022-05-06 03:14] VITALS: BMI 27.2
[2022-05-15 11:10] LABS: INR Fingerstick 1.7; Prothrombin Time Fingerstick 20.3 SEC (11.7-14.9)
== END 2022-05-15 18:00 | disposition home or self-care (01) ==
LOC: LAB 10:58
PROVIDERS: Family Provider Family Medicine; PCP Family Medicine; Referring Provider Internal Medicine Cardiovascular Disease; Visit Provider Internal Medicine Cardiovascular Disease
DX: I48.11 Longstanding persistent atrial fibrillation (principal); Z79.01 Long term (current) use of anticoagulants
CPT/HCPCS: 36416; 85610

== ENCOUNTER → 2022-05-16 | Outpatient (CLI) | payer MEDICARE, SELFPAY | END | disposition home or self-care (01) | PROVIDERS: PCP Internal Medicine; Visit Provider Urology | DX: R31.0 Gross hematuria (principal) | CPT/HCPCS: 87086; 87088 ==

== ENCOUNTER 2022-06-28 10:16 | Outpatient (RCR) | payer MEDICARE, SELFPAY ==
[2022-06-07 00:30] VITALS: BMI 27.2
[2022-06-28 10:26] LABS: INR Fingerstick 2.4; Prothrombin Time Fingerstick 27.8 SEC (11.7-14.9)
== END 2022-06-28 18:00 | disposition home or self-care (01) ==
LOC: LAB 10:16
PROVIDERS: Family Provider Family Medicine; PCP Internal Medicine; Referring Provider Internal Medicine Cardiovascular Disease; Visit Provider Internal Medicine Cardiovascular Disease
DX: I48.11 Longstanding persistent atrial fibrillation (principal); Z79.01 Long term (current) use of anticoagulants
CPT/HCPCS: 36416; 85610

== ENCOUNTER 2022-08-02 15:18 | Outpatient (RCR) | payer MEDICARE, SELFPAY ==
[2022-07-06 23:37] VITALS: BMI 27.2
[2022-07-17 09:45] LABS: INR Fingerstick 1.8; Prothrombin Time Fingerstick 21.4 SEC (11.7-14.9)
[2022-08-02 15:30] LABS: INR Fingerstick 2.2; Prothrombin Time Fingerstick 25.9 SEC (11.7-14.9)
== END 2022-08-02 18:00 | disposition home or self-care (01) ==
LOC: LAB 15:18
PROVIDERS: Family Provider Family Medicine; PCP Internal Medicine; Referring Provider Internal Medicine Cardiovascular Disease; Visit Provider Internal Medicine Cardiovascular Disease
DX: I48.11 Longstanding persistent atrial fibrillation (principal); Z79.01 Long term (current) use of anticoagulants
CPT/HCPCS: 36416; 85610

== ENCOUNTER 2022-08-23 09:27 | Outpatient (RCR) | payer MEDICARE, SELFPAY ==
[2022-08-07 10:25] VITALS: BMI 27.2
[2022-08-23 09:40] LABS: INR Fingerstick 1.8; Prothrombin Time Fingerstick 21.7 SEC (11.7-14.9)
== END 2022-09-05 18:00 | disposition home or self-care (01) ==
LOC: LAB 09:27
PROVIDERS: Family Provider Family Medicine; PCP Internal Medicine; Referring Provider Internal Medicine Cardiovascular Disease; Visit Provider Internal Medicine Cardiovascular Disease
DX: I48.11 Longstanding persistent atrial fibrillation (principal); Z79.01 Long term (current) use of anticoagulants
CPT/HCPCS: 36416; 85610

== ENCOUNTER 2022-09-18 15:09 | Outpatient (RCR) | payer MEDICARE, SELFPAY ==
[2022-09-06 01:34] VITALS: BMI 27.2
[2022-09-18 15:25] LABS: INR Fingerstick 2.9; Prothrombin Time Fingerstick 33.5 SEC (11.7-14.9)
== END 2022-09-18 18:00 | disposition home or self-care (01) ==
LOC: LAB 15:09
PROVIDERS: Family Provider Family Medicine; PCP Internal Medicine; Referring Provider Internal Medicine Cardiovascular Disease; Visit Provider Internal Medicine Cardiovascular Disease
DX: I48.11 Longstanding persistent atrial fibrillation (principal); Z79.01 Long term (current) use of anticoagulants
CPT/HCPCS: 36416; 85610

== ENCOUNTER 2022-10-18 07:47 | Outpatient (RCR) | payer MEDICARE, SELFPAY ==
[2022-10-07 05:37] VITALS: BMI 27.2
[2022-10-18 08:33] LABS: International Normalized Ratio 2.1; Prothrombin Time (Protime)PT. 22.8 SECONDS (11.7-14.9)
[2022-10-18 08:41] LABS: AST(SGOT) 20 U/L (15-37); Alanine Aminotransfer ALT/SGPT 28 U/L (16-61); Albumin, Serum 3.6 g/dL (3.2-5.0); Alkaline Phosphatase 65 U/L (45-117); Cholesterol 203 mg/dL (200); Globulin 3.3 g/dL (2.2-4.2); High Density Lipoprotein 43 mg/dL; Protein, Total 6.9 g/dL (6.4-8.2); Triglycerides 123 mg/dL; Very Low Density Lipoprotein 25 mg/dL (5-40)
== END 2022-10-18 09:00 | disposition home or self-care (01) ==
LOC: LAB 07:47
PROVIDERS: Family Provider Family Medicine; PCP Internal Medicine; Referring Provider Internal Medicine Cardiovascular Disease; Visit Provider Internal Medicine Cardiovascular Disease
DX: I48.11 Longstanding persistent atrial fibrillation (principal); Z79.01 Long term (current) use of anticoagulants; E78.5 Hyperlipidemia, unspecified; I25.10 Atherosclerotic heart disease of native coronary artery without angina pectoris; Z95.5 Presence of coronary angioplasty implant and graft
CPT/HCPCS: 36415; 80061; 80076; 85610

== ENCOUNTER 2022-11-13 09:27 | Outpatient (RCR) | payer MEDICARE, SELFPAY ==
[2022-11-07 08:36] VITALS: BMI 27.2
[2022-11-13 09:40] LABS: INR Fingerstick 2.1
== END 2022-11-13 18:00 | disposition home or self-care (01) ==
LOC: LAB 09:27
PROVIDERS: Family Provider Family Medicine; PCP Internal Medicine; Referring Provider Internal Medicine Cardiovascular Disease; Visit Provider Internal Medicine Cardiovascular Disease
DX: I48.11 Longstanding persistent atrial fibrillation (principal); Z79.01 Long term (current) use of anticoagulants
CPT/HCPCS: 36416; 85610

== ENCOUNTER 2022-12-12 14:59 | Outpatient (RCR) | payer MEDICARE, SELFPAY ==
[2022-12-04 22:56] VITALS: BMI 27.2
[2022-12-12 15:15] LABS: INR Fingerstick 2.2; Prothrombin Time Fingerstick 25.6 SEC (11.7-14.9)
== END 2023-01-04 23:03 | disposition home or self-care (01) ==
LOC: LAB 14:59
PROVIDERS: Family Provider Family Medicine; PCP Internal Medicine; Referring Provider Internal Medicine Cardiovascular Disease; Visit Provider Internal Medicine Cardiovascular Disease
DX: I48.11 Longstanding persistent atrial fibrillation (principal); Z79.01 Long term (current) use of anticoagulants
CPT/HCPCS: 36416; 85610

== ENCOUNTER 2023-01-25 13:44 | Outpatient (RCR) | payer MEDICARE, SELFPAY ==
[2023-01-04 23:03] VITALS: BMI 27.2
[2023-01-25 14:06] LABS: INR Fingerstick 3.3; Prothrombin Time Fingerstick 35.4 SEC (11.7-14.9)
== END 2023-02-03 01:29 | disposition home or self-care (01) ==
LOC: LAB 13:44
PROVIDERS: Family Provider Family Medicine; PCP Internal Medicine; Referring Provider Internal Medicine Cardiovascular Disease; Visit Provider Internal Medicine Cardiovascular Disease
DX: I48.11 Longstanding persistent atrial fibrillation (principal); Z79.01 Long term (current) use of anticoagulants
CPT/HCPCS: 36416; 85610

== ENCOUNTER 2023-02-19 11:09 | Outpatient (RCR) | payer MEDICARE, SELFPAY ==
[2023-02-03 01:29] VITALS: BMI 27.2
[2023-02-19 11:26] LABS: INR Fingerstick 3.6; Prothrombin Time Fingerstick 37.6 SEC (11.7-14.9)
== END 2023-03-06 18:00 | disposition home or self-care (01) ==
LOC: LAB 11:09
PROVIDERS: Family Provider Family Medicine; PCP Internal Medicine; Referring Provider Internal Medicine Cardiovascular Disease; Visit Provider Internal Medicine Cardiovascular Disease
DX: I48.11 Longstanding persistent atrial fibrillation (principal); Z79.01 Long term (current) use of anticoagulants
CPT/HCPCS: 36416; 85610

== ENCOUNTER 2023-03-19 13:35 | Outpatient (RCR) | payer MEDICARE, SELFPAY ==
[2023-03-07 08:15] VITALS: BMI 27.2
[2023-03-19 14:03] LABS: INR Fingerstick 2.7; Prothrombin Time Fingerstick 29.3 SEC (11.7-14.9)
== END 2023-03-19 18:00 | disposition home or self-care (01) ==
LOC: LAB 13:35
PROVIDERS: Family Provider Family Medicine; PCP Internal Medicine; Referring Provider Internal Medicine Cardiovascular Disease; Visit Provider Internal Medicine Cardiovascular Disease
DX: I48.11 Longstanding persistent atrial fibrillation (principal); Z79.01 Long term (current) use of anticoagulants
CPT/HCPCS: 36416; 85610

== ENCOUNTER 2023-04-30 09:42 | Outpatient (RCR) | payer MEDICARE, SELFPAY ==
[2023-04-06 01:51] VITALS: BMI 27.2
[2023-04-30 09:51] LABS: INR Fingerstick 2.1; Prothrombin Time Fingerstick 23.1 SEC (11.7-14.9)
== END 2023-05-06 18:00 | disposition home or self-care (01) ==
LOC: LAB 09:42
PROVIDERS: Family Provider Family Medicine; PCP Internal Medicine; Referring Provider Internal Medicine Cardiovascular Disease; Visit Provider Internal Medicine Cardiovascular Disease
DX: I48.11 Longstanding persistent atrial fibrillation (principal); Z79.01 Long term (current) use of anticoagulants
CPT/HCPCS: 36416; 85610

== ENCOUNTER 2023-07-01 11:31 | Outpatient (RCR) | payer MEDICARE, SELFPAY ==
[2023-05-07 01:52] VITALS: BMI 27.2
[2023-07-01 11:38] LABS: INR Fingerstick 2.2; Prothrombin Time Fingerstick 23.6 SEC (11.7-14.9)
== END 2023-07-01 18:00 | disposition home or self-care (01) ==
LOC: LAB 11:31
PROVIDERS: Family Provider Family Medicine; PCP Internal Medicine; Referring Provider Internal Medicine Cardiovascular Disease; Visit Provider Internal Medicine Cardiovascular Disease
DX: I48.11 Longstanding persistent atrial fibrillation (principal); Z79.01 Long term (current) use of anticoagulants
CPT/HCPCS: 36416; 85610

== ENCOUNTER 2023-09-17 13:22 | Outpatient (RCR) | payer MEDICARE, SELFPAY ==
[2023-07-07 04:44] VITALS: BMI 27.2
== END 2023-10-06 18:00 | disposition home or self-care (01) ==
LOC: LAB 13:22
PROVIDERS: Family Provider Family Medicine; PCP Internal Medicine; Referring Provider Internal Medicine Cardiovascular Disease; Visit Provider Internal Medicine Cardiovascular Disease
DX: I48.11 Longstanding persistent atrial fibrillation (principal); Z79.01 Long term (current) use of anticoagulants
CPT/HCPCS: 36416; 85610

== ENCOUNTER 2023-11-05 12:27 | Outpatient (RCR) | payer MEDICARE, SELFPAY ==
[2023-10-06 22:03] VITALS: BMI 27.2
[2023-11-05 12:40] LABS: INR Fingerstick 2.5
== END 2023-11-05 18:00 | disposition home or self-care (01) ==
LOC: LAB 12:27
PROVIDERS: Family Provider Family Medicine; PCP Internal Medicine; Referring Provider Internal Medicine Cardiovascular Disease; Visit Provider Internal Medicine Cardiovascular Disease
DX: I48.11 Longstanding persistent atrial fibrillation (principal); Z79.01 Long term (current) use of anticoagulants
CPT/HCPCS: 36416; 85610

== ENCOUNTER 2023-12-30 13:42 | Outpatient (RCR) | payer MEDICARE, SELFPAY ==
[2023-11-06 22:59] VITALS: BMI 27.2
[2024-01-01 09:32] LABS: INR Fingerstick 2.5; Prothrombin Time Fingerstick 25.4 SEC (11.7-14.9)
== END 2024-01-05 01:31 | disposition home or self-care (01) ==
LOC: LAB 13:42
PROVIDERS: Family Provider Family Medicine; PCP Internal Medicine; Referring Provider Internal Medicine Cardiovascular Disease; Visit Provider Internal Medicine Cardiovascular Disease
DX: I48.11 Longstanding persistent atrial fibrillation (principal); Z79.01 Long term (current) use of anticoagulants
CPT/HCPCS: 36416; 85610

== ENCOUNTER 2024-03-12 14:15 | Outpatient (RCR) | payer MEDICARE, SELFPAY ==
[2024-01-05 01:31] VITALS: BMI 27.2
[2024-03-12 14:51] LABS: INR Fingerstick 2.3; Prothrombin Time Fingerstick 24.1 SEC (11.7-14.9)
== END 2024-03-12 18:00 | disposition home or self-care (01) ==
LOC: LAB 14:15
PROVIDERS: Family Provider Family Medicine; PCP Internal Medicine; Referring Provider Internal Medicine Cardiovascular Disease; Visit Provider Internal Medicine Cardiovascular Disease
DX: Z79.01 Long term (current) use of anticoagulants; I48.20 Chronic atrial fibrillation, unspecified
CPT/HCPCS: 36416; 85610

== ENCOUNTER 2024-04-21 13:38 | Outpatient (RCR) | payer MEDICARE, SELFPAY ==
[2024-04-06 04:08] VITALS: BMI 27.2
[2024-04-21 13:52] LABS: INR Fingerstick 2.1; Prothrombin Time Fingerstick 21.6 SEC (11.7-14.9)
== END 2024-05-06 18:00 | disposition home or self-care (01) ==
LOC: LAB 13:38
PROVIDERS: Family Provider Family Medicine; PCP Internal Medicine; Referring Provider Internal Medicine Cardiovascular Disease; Visit Provider Internal Medicine Cardiovascular Disease
DX: I48.11 Longstanding persistent atrial fibrillation (principal); Z79.01 Long term (current) use of anticoagulants
CPT/HCPCS: 36416; 85610

== ENCOUNTER 2024-06-25 11:03 | Outpatient (RCR) | payer MEDICARE, SELFPAY ==
[2024-05-06 23:02] VITALS: BMI 27.2
[2024-06-25 11:22] LABS: INR Fingerstick 2.1; Prothrombin Time Fingerstick 22.3 SEC (11.7-14.9)
== END 2024-06-25 18:00 | disposition home or self-care (01) ==
LOC: LAB 11:03
PROVIDERS: Family Provider Family Medicine; PCP Internal Medicine; Referring Provider Internal Medicine Cardiovascular Disease; Visit Provider Internal Medicine Cardiovascular Disease
DX: Z79.01 Long term (current) use of anticoagulants; I48.20 Chronic atrial fibrillation, unspecified
CPT/HCPCS: 36416; 85610

== ENCOUNTER → 2024-06-30 | Outpatient (CLI) | payer MEDICARE, SELFPAY ==
[2024-06-30 14:42] LABS: Absolute Lymphocyte Count 1.15 X10^3/uL (0.83-4.51); Absolute Neutrophil Count 3.7 X10^3/uL (2.0-7.7); Basophil# 0.03 X10^3/uL; Basophil% 0.5 % (0-1); Eosinophil# 0.11 X10^3/uL; Hematocrit 42.2 % (40-54); Hemoglobin 13.4 g/dL (13.0-16.5); Lymphocyte # 1.15 X10^3/ul (0.83-4.51); Lymphocyte % 20.4 % (19-41); Mean Corp Hgb Conc 31.8 g/dL (32-36); Mean Corpuscular Hgb 32.7 pg (27.0-32.0); Mean Corpuscular Volume 102.9 fL (80-94); Mean Platelet Vol. 11.8 fl (6.2-12.0); Monocyte# 0.59 X10^3/uL; Monocyte% 10.5 % (0-10); NRBC Flagged by Analyzer 0 % (0-5); Neutrophil # 3.73 X10^3/uL (2.7-7.7); Neutrophil % 66.2 % (47-70); Platelet Count 122 K/mm3 (150-450); RBC Distribution Width CV 12.6 % (11.6-14.6); RBC Distribution Width SD 47.8 fl (35.1-43.9); White Blood Count 5.6 K/mm3 (4.4-11.0)
== END | disposition home or self-care (01) ==
LOC: LAB 13:29
PROVIDERS: PCP Internal Medicine; Referring Provider Nurse Practitioner Family; Visit Provider Nurse Practitioner Family
DX: Z79.899 Other long term (current) drug therapy (principal)
CPT/HCPCS: 36415; 85025

== ENCOUNTER 2024-12-04 11:35 | Outpatient (RCR) | payer MEDICARE, SELFPAY ==
[2024-07-07 04:42] VITALS: BMI 27.2
[2024-12-10 10:09] LABS: INR Fingerstick 1.8; Prothrombin Time Fingerstick 20.1 SEC (11.7-14.9)
== END 2024-12-04 18:00 | disposition home or self-care (01) ==
LOC: LAB 11:35
PROVIDERS: Family Provider Family Medicine; PCP Internal Medicine; Referring Provider Internal Medicine Cardiovascular Disease; Visit Provider Internal Medicine Cardiovascular Disease
DX: I48.11 Longstanding persistent atrial fibrillation (principal); Z79.01 Long term (current) use of anticoagulants
CPT/HCPCS: 36416; 85610

== ENCOUNTER 2024-12-09 10:46 | Outpatient (RCR) | payer MEDICARE, SELFPAY ==
[2024-12-05 07:40] VITALS: BMI 27.2
[2024-12-18 06:25] LABS: INR Fingerstick 1.7; Prothrombin Time Fingerstick 19.2 SEC (11.7-14.9)
== END 2024-12-09 18:00 | disposition home or self-care (01) ==
LOC: LAB 10:46
PROVIDERS: Family Provider Family Medicine; PCP Internal Medicine; Referring Provider Internal Medicine Cardiovascular Disease; Visit Provider Internal Medicine Cardiovascular Disease
DX: Z79.01 Long term (current) use of anticoagulants; I48.20 Chronic atrial fibrillation, unspecified
CPT/HCPCS: 36416; 85610

== ENCOUNTER 2025-01-12 13:41 | Outpatient (RCR) | payer MEDICARE, SELFPAY ==
[2025-01-04 22:51] VITALS: BMI 27.2
[2025-01-12 13:50] LABS: INR Fingerstick 2.1; Prothrombin Time Fingerstick 23.3 SEC (11.7-14.9)
[2025-01-12 17:11] LABS: AST(SGOT) 26 U/L (<=37); Alanine Aminotransfer ALT/SGPT 20 U/L (<=46); Albumin, Serum 3.9 g/dL (3.4-4.8); Alkaline Phosphatase 81 U/L (40-129); Anion Gap 12 (5-15); BUN 21 mg/dL (4-19); BUN/Creat Ratio 27.6 RATIO (10-20); Bilirubin, Direct 0.21 mg/dL (0.00-0.30); Calcium,Total 8.9 mg/dL (7.6-11.0); Carbon Dioxide 23.2 mmol/L (21.0-32.0); Chloride 104 mmol/L (98-108); Cholesterol 156 mg/dL (<=200); Creatinine, Serum 0.75 mg/dL (0.70-1.20); EST Glomerular Filtration Rate 89 (>60); Globulin 2.4 g/dL (2.2-4.2); Glucose 104 mg/dL (70-99); High Density Lipoprotein 48 mg/dL; Low Density Lipoprotein Calc. 87 mg/dL; Potassium 4.5 mmol/L (3.3-5.1); Protein, Total 6.2 g/dL (5.9-8.4); Sodium Level 139 mmol/L (133-145); Total Bilirubin 0.41 mg/dL (0.00-1.30); Triglycerides 101 mg/dL; Very Low Density Lipoprotein 20 mg/dL (5-40); cholesterol:hdl ratio screen 3.22
== END 2025-02-03 18:00 | disposition home or self-care (01) ==
LOC: LAB 13:41
PROVIDERS: Family Provider Family Medicine; PCP Internal Medicine; Referring Provider Internal Medicine Cardiovascular Disease; Visit Provider Internal Medicine Cardiovascular Disease
DX: I48.20 Chronic atrial fibrillation, unspecified (principal); Z79.01 Long term (current) use of anticoagulants; E78.5 Hyperlipidemia, unspecified; I77.810 Thoracic aortic ectasia; Z95.3 Presence of xenogenic heart valve
CPT/HCPCS: 36415; 36416; 80048; 80061; 80076; 85610

== ENCOUNTER 2025-02-04 11:27 | Outpatient (RCR) | payer MEDICARE, SELFPAY ==
[2025-02-03 22:13] VITALS: BMI 27.2
[2025-02-04 11:34] LABS: INR Fingerstick 1.7
== END 2025-02-04 18:00 | disposition home or self-care (01) ==
LOC: LAB 11:27
PROVIDERS: Family Provider Family Medicine; Referring Provider Internal Medicine Cardiovascular Disease; Visit Provider Internal Medicine Cardiovascular Disease
DX: Z79.01 Long term (current) use of anticoagulants; I48.20 Chronic atrial fibrillation, unspecified
CPT/HCPCS: 36416; 85610

== ENCOUNTER → 2025-02-04 | Outpatient (CLI) | payer MEDICARE, SELFPAY ==
--- NOTE | 2025-02-04 10:17 | ECHOD_ITS ---
Reason For Study Reason For Study: PROSTHETIC HEART VALVE Procedure This was a 2D Doppler, Color Flow transthoracic echocardiogram. Exam performed in department. Left Ventricle Normal left ventricle. Mild concentric left ventricular hypertrophy. The left ventricular ejection fraction is 60 %. Mid-anteroseptal : Mildly hypokinetic. Right Ventricle Normal RV size. Normal systolic function. Atria The left atrium is severely enlarged. The right atrium is moderately enlarged. Mitral Valve Stable appearing bioprosthetic mitral valve apparatus. Tricuspid Valve Normal tricuspid valve. Mild to moderate (1-2+) tricuspid valve insufficiency. Pulmonary artery systolic pressure is 55 mmHg. Aortic Valve Trisinus/trileaflet aortic valve. Mild focal aortic valve calcification. Mild (1+) aortic valve insufficiency. Great Vessels Mildly calcified aortic root. The pulmonary artery is normal size. Inferior vena cava collapse with sniff. Pericardium/Pleural No pericardial effusion. MMode/2D Measurements & Calculations LVIDd: 6.0 cm IVSd: 1.2 cm LVOT diam: 2.0 cm LVIDs: 4.3 cm LVPWd: 1.2 cm LVOT area: 3.2 cm2 RVDd: 4.1 cm FS: 28.4 % Ao root diam: 4.5 cm LAV(MOD-sp4): 135.5 ml LVAd ap4: 29.4 cm2 LVLd ap4: 8.5 cm EDV(MOD-sp4): 87.4 ml EDV(sp4-el): 86.4 ml LVAs ap4: 15.7 cm2 LVLs ap4: 6.8 cm ESV(MOD-sp4): 30.3 ml ESV(sp4-el): 30.8 ml EF(MOD-sp4): 65.3 % EF(sp4-el): 64.4 % SV(MOD-sp4): 57.1 ml SV(sp4-el): 55.6 ml LA A4 area: 34.3 cm2 SI(MOD-sp4): 27.7 ml/m2 LA dimension(2D): 5.3 cm RA A4 area: 28.2 cm2 Doppler Measurements & Calculations MV E max man: 178.3 cm/sec MV P1/2t max man: 221.1 cm/sec Ao V2 max: 138.1 cm/sec MV P1/2t: 311.5 msec Ao max P.6 mmHg Ao V2 mean: 97.3 cm/sec MV dec slope: 207.8 cm/sec2 Ao mean P.3 mmHg MVA(P1/2t): 0.71 cm2 Ao V2 VTI: 28.8 cm AV (velocity ratio): 1.00 EVERARDO(I,D): 3.2 cm2 EVERARDO(V,D): 3.3 cm2 AI max man: 409.8 cm/sec LV V1 max: 141.8 cm/sec SV(LVOT): 93.1 ml AI max P.3 mmHg LV V1 max P.1 mmHg AI dec slope: 270.2 cm/sec2 LV V1 mean P.0 mmHg AI P1/2t: 444.3 msec LV V1 mean: 92.6 cm/sec LV V1 VTI: 28.7 cm PA V2 max: 96.1 cm/sec TR max amn: 361.0 cm/sec PA V2 mean: 59.6 cm/sec TR max P.1 mmHg ECHO/Echo Complete Interpretation Summary The left ventricular ejection fraction is 60 %. Normal left ventricle. Mild concentric left ventricular hypertrophy. Mid-anteroseptal : Mildly hypokinetic Stable appearing bioprosthetic mitral valve apparatus. Pulmonary artery systolic pressure is 55 mmHg. The left atrium is severely enlarged. Ordering Physician: Solomon Mendoza Referring Physician: Solomon Mendoza Performed By: Natasha Drake RCS
--- NOTE | 2025-02-04 10:20 | CT_ITS ---
PROCEDURE: CTA CHEST W/WO CONTRAST (CTCTACHWW), 02/04/2025 REASON FOR EXAM: AAA TECHNIQUE: CTA chest was performed with IV contrast. Multiplanar reformats and a rotating MIP reconstructions were generated. CONTRAST: Isovue 370 VOLUME: 100mL RADIATION DOSE SUMMARY: CTDlvol: 19.95+ 14.48 mGy DLP: 600.81 mGycm One or more dose reduction techniques were used (e.g., Automated exposure control, adjustment of the mA and/or kV according to patient size, use of iterative reconstruction technique). COMPARISON: 04/21/2020 ; note that images only are available for review, the report is not available at the time of the dictation. FINDINGS: Mild/moderate motion limitation through the mid to lower chest. Heart/pericardium: Four-chamber cardiomegaly favoring the RIGHT heart and LEFT atrium. Mitral valvular bioprosthesis. Trace aortic annular calcification. Three-vessel coronary atherosclerosis and/or stents post remote appearing potentially pediatric sternotomy. Suspect LEFT atrial appendage thrombus with associated calcification, similar to 04/21/2020. Aorta: [id number] atherosclerosis including focal ulcerative appearing soft atherosclerotic plaque and/or mural thrombus along the posterior aspect of the mid descending thoracic aorta where there is a new focal saccular outpouching opacifying with contrast protruding into this region measuring 13 x 6 x 12 mm. No adjacent stranding.. Sino-tubular junction dilated to 3.7 x 3.8 cm. Fusiform ectasia of the ascending aorta to 4.5 x 4.6 cm tapering slightly through the arch to 4.4 x 4.3 cm. Descending thoracic aorta tapers to 3.6 x 3.5 cm at the level of the diaphragmatic hiatus. Prominent partially imaged common carotid atherosclerosis, [id number] with at least mild/moderate stenosis. Pulmonary arteries: Enlarged central pulmonary arteries which may indicate pulmonary arterial hypertension. Calcified pleural plaques on the LEFT, suggesting previous asbestos exposure. Lymph nodes: Subcarinal node, 12 mm short axis, previously subcentimeter.. Lungs/pleura: New trace to small RIGHT pleural effusion.. Mild atelectasis/scarring. LEFT upper lobe granuloma. Airways: Unremarkable. Chest wall: Unremarkable. Upper abdomen: Tiny hypodensity in the LEFT lobe too small to characterize, but similar prior, likely cyst/hemangioma. Cholelithiasis. Partially imaged gallbladder demonstrates mild nonspecific wall thickening. Musculoskeletal: Demineralization. Multilevel spondylosis. Mild scoliosis. CT/CTA Chest W/WO Contrast IMPRESSION: 1. Slightly motion limited exam. 2. Minimally imaged gallbladder demonstrates cholelithiasis with mild wall thic kening. This is nonspecific but can be seen in the setting of venous congestion as may be suggested by marked cardiomegaly and a trace to small RIGHT pleural effusion. In addition to venous congestion, gallbladder wall thickening may be seen in the s etting of acute/chronic cholecystitis, 3rd spacing, or may be reactive to a primarily hepatic process. If there is clinica l concern, consider HIDA. 3. Severe atherosclerosis with a new focal saccular 13 mm outpouching arising f rom the descending thoracic aorta with surrounding mural thrombus and/or soft atherosclerotic plaque. The appearance could reflec t ulcerative plaque or versus penetrating ulcer formation. No adjacent inflammation to confirm acuity. Recommend clinical fol low-up including vascular consultation. 4. Diffuse fusiform ectasia of the thoracic aorta to 4.5 x 4.6 cm along the asc ending aorta as described. 5. Suspect LEFT atrial appendage thrombus with associated calcification, simila r to 04/21/2020. Consider confirmation with echocardiography. 6. New mild mediastinal lymphadenopathy, nonspecific and potentially reactive i n the absence of known malignancy. Correlate with medical history and follow-up as indicated. 7. Additional description as above. Reading Location: [id number]
== END | disposition home or self-care (01) ==
PROVIDERS: Referring Provider Internal Medicine Cardiovascular Disease; Visit Provider Internal Medicine Cardiovascular Disease
DX: Z95.3 Presence of xenogenic heart valve (principal)
CPT/HCPCS: 71275; 93306; Q9967

== ENCOUNTER 2025-03-12 14:33 | Outpatient (RCR) | payer MEDICARE, SELFPAY ==
[2025-03-07 19:21] VITALS: BMI 27.2
[2025-03-12 15:26] LABS: International Normalized Ratio 2.3; Prothrombin Time (Protime)PT. 26.1 SECONDS (11.7-14.9)
== END 2025-03-12 18:00 | disposition home or self-care (01) ==
LOC: LAB 14:33
PROVIDERS: Nurse Practitioner Family; Family Provider Family Medicine; Referring Provider Internal Medicine Cardiovascular Disease; Visit Provider Internal Medicine Cardiovascular Disease
DX: Z79.01 Long term (current) use of anticoagulants; I48.20 Chronic atrial fibrillation, unspecified
CPT/HCPCS: 36415; 85610

== ENCOUNTER 2025-05-21 10:29 | Outpatient (RCR) | payer MEDICARE, SELFPAY ==
[2025-05-21 10:55] LABS: INR Fingerstick 2.5
== END 2025-05-21 18:00 | disposition home or self-care (01) ==
LOC: LAB 10:29
PROVIDERS: Family Provider Family Medicine; Referring Provider Internal Medicine Cardiovascular Disease; Visit Provider Internal Medicine Cardiovascular Disease
DX: I48.11 Longstanding persistent atrial fibrillation (principal); Z79.01 Long term (current) use of anticoagulants
CPT/HCPCS: 36416; 85610

== ENCOUNTER 2025-06-22 11:12 | Outpatient (RCR) | payer MEDICARE, SELFPAY ==
[2025-06-22 11:26] LABS: INR Fingerstick 2.4
== END 2025-07-06 18:00 | disposition home or self-care (01) ==
LOC: LAB 11:12
PROVIDERS: Family Provider Family Medicine; Referring Provider Internal Medicine Cardiovascular Disease; Visit Provider Internal Medicine Cardiovascular Disease
DX: I48.20 Chronic atrial fibrillation, unspecified (principal); Z79.01 Long term (current) use of anticoagulants
CPT/HCPCS: 36416; 85610